=== PATIENT | female | born 1945 | race Caucasian/White ===

== ENCOUNTER 2019-01-04 22:11 | Inpatient (IN) | payer MEDICARE ==
[~2019-01-04] VITALS: Ht 160 cm; Wt 82.6 kg
[2019-01-04] MEDS ORDERED: methylPREDNISolone SOD SUCC PF 125 MG/2 ML VIAL. ONE (22:15)
[2019-01-04] MEDS ORDERED: methylPREDNISolone SOD SUCC PF 125 MG/2 ML VIAL. IV ONE (22:15)
[2019-01-04 22:32] LABS: BASO # 0.1 x10^3/uL (0.0-0.2); BASO % 1 % (0-3); EOS # 0.1 x10^3/uL (0.0-0.7); EOS % 2 % (0-3); HEMATOCRIT 45.8 % (36.0-47.0); HEMOGLOBIN 15.5 g/dL (12.0-15.5); LYMPH # 1.9 x10^3/uL (1.0-4.8); LYMPH % 32 % (24-48); MEAN CORPUSCULAR HEMOGLOBIN 31 pg (25-35); MEAN CORPUSCULAR HGB CONC 34 g/dL (31-37); MEAN CORPUSCULAR VOLUME 91 fL (79-100); MONO # 0.5 x10^3/uL (0.0-1.1); MONO % 9 % (0-9); NEUT # 3.4 x10^3/uL (1.8-7.7); NEUT % 56 % (31-73); PLATELET COUNT 219 x10^3/uL (140-400); RED BLOOD COUNT 5.06 x10^6/uL (3.50-5.40); RED CELL DISTRIBUTION WIDTH 16.3 % (11.5-14.5); WHITE BLOOD COUNT 5.9 x10^3/uL (4.0-11.0)
[2019-01-04 23:02] LABS: CALCIUM 8.8 mg/dL (8.5-10.1); CREATININE 1.1 mg/dL (0.6-1.0); POTASSIUM 4.3 mmol/L (3.5-5.1)
[2019-01-04 23:09] LABS: ALBUMIN 3.6 g/dL (3.4-5.0); ALBUMIN/GLOBULIN RATIO 1.2 (1.0-1.7); TOTAL BILIRUBIN 0.9 mg/dL (0.2-1.0); TOTAL PROTEIN 6.6 g/dL (6.4-8.2)
[2019-01-04 23:11] LABS: BASE EXCESS ABG -3 mmol/L (-3-3); HCO3 ABG 20 mmol/L (21-28); PCO2 ABG 31 mmHg (35-46); SAT O2 ABG 84 % (92-99)
[2019-01-04 23:12] LABS: PO2 ABG 49 mmHg (65-108)
--- NOTE | 2019-01-04 23:25 | PHYS DOC ---
Adult General Chief Complaint Chief Complaint: DYSPNEA/RESPIRATOY DISTRESS HPI HPI 73-year-old female history of pulmonary hypertension, chronic respiratory failure, chronic hypoxemia presents to the emergency department with acute shortness of breath. [facility] 11 day hospital stay. Patient falls with pulmonary at [facility]. She is on 15 L chronically at home. She states she has been tapering off of steroids since her last hospitalization and subsequently when this happens she gets worsening shortness of breath. States over the last 3 days she's had increasing shortness of breath. EMS was called tonight for worsening shortness of breath, saturations in the 70s with tachypnea and tripoding. Patient functions well with saturations in the 80s. EMS was called she was brought to the hospital for further evaluation given acute respiratory failure Review of Systems Review of Systems Constitutional: Denies fever or chills [] Respiratory: Cough/SOB Cardiovascular: No additional information not addressed in HPI [] GI: Denies abdominal pain, nausea, vomiting, bloody stools or diarrhea [] Musculoskeletal: Denies back pain or joint pain [] Integument: Denies rash or skin lesions [] Neurologic: Denies headache, focal weakness or sensory changes [] All other systems were reviewed and found to be within normal limits, except as documented in this note. Current Medications Current Medications Current Medications Medications (Trade) Dose Ordered Sig/Yessy Start Time Stop Time Status Last Admin Dose Admin Methylprednisolone Sodium Succinate (SOLU-Medrol 125MG VIAL) 125 mg 1X ONCE 01/04/19 22:15 01/04/19 22:30 DC Allergies Allergies Allergies Coded Allergies Type Severity Reaction Last Updated Verified Penicillins Allergy Unknown 01/04/19 Yes Sulfa (Sulfonamide Antibiotics) Allergy Unknown 01/04/19 Yes Physical Exam Physical Exam Constitutional: Acute Resp Distress, BIPAP in place HENT: Normocephalic, atraumatic, bilateral external ears normal, oropharynx moist, no oral exudates, nose normal. [] Eyes: PERRLA, EOMI, conjunctiva normal, no discharge. [] Cardiovascular: tachycardia Lungs & Thorax: Bilateral breath sounds clear to auscultation [] Abdomen: Bowel sounds normal, soft, no tenderness, no masses, no pulsatile masses. [] Skin: Warm, dry, no erythema, no rash. [] Back: No tenderness, no CVA tenderness. [] Extremities: No tenderness, no cyanosis, no clubbing, ROM intact, no edema. [] Neurologic: Alert and oriented X 3, no focal deficits noted. [] Psychologic: Affect normal, judgement normal, mood normal. [] Current Patient Data Vital Signs Vital Signs Date Time Temp Pulse Resp B/P (MAP) Pulse Ox O2 Delivery O2 Flow Rate FiO2 01/04/19 22:30 91 BiPAP/CPAP Lab Values Laboratory Tests Test 01/04/19 22:24 01/04/19 22:46 White Blood Count 5.9 x10^3/uL (4.0-11.0) Red Blood Count 5.06 x10^6/uL (3.50-5.40) Hemoglobin 15.5 g/dL (12.0-15.5) Hematocrit 45.8 % (36.0-47.0) Mean Corpuscular Volume 91 fL (79-100) Mean Corpuscular Hemoglobin 31 pg (25-35) Mean Corpuscular Hemoglobin Concent 34 g/dL (31-37) Red Cell Distribution Width 16.3 % (11.5-14.5) H Platelet Count 219 x10^3/uL (140-400) Neutrophils (%) (Auto) 56 % (31-73) Lymphocytes (%) (Auto) 32 % (24-48) Monocytes (%) (Auto) 9 % (0-9) Eosinophils (%) (Auto) 2 % (0-3) Basophils (%) (Auto) 1 % (0-3) Neutrophils # (Auto) 3.4 x10^3/uL (1.8-7.7) Lymphocytes # (Auto) 1.9 x10^3/uL (1.0-4.8) Monocytes # (Auto) 0.5 x10^3/uL (0.0-1.1) Eosinophils # (Auto) 0.1 x10^3/uL (0.0-0.7) Basophils # (Auto) 0.1 x10^3/uL (0.0-0.2) Sodium Level 142 mmol/L (136-145) Potassium Level 4.3 mmol/L (3.5-5.1) Chloride Level 108 mmol/L (98-107) H Carbon Dioxide Level 21 mmol/L (21-32) Anion Gap 13 (6-14) Blood Urea Nitrogen 20 mg/dL (7-20) Creatinine 1.1 mg/dL (0.6-1.0) H Estimated GFR (Cockcroft-Gault) 49.0 BUN/Creatinine Ratio 18 (6-20) Glucose Level 135 mg/dL (70-99) H Calcium Level 8.8 mg/dL (8.5-10.1) Total Bilirubin Pending Aspartate Amino Transferase (AST) Pending Alanine Aminotransferase (ALT) Pending Alkaline Phosphatase Pending Total Protein Pending Albumin Pending Albumin/Globulin Ratio Pending Laboratory Tests 01/04/19 22:24 Laboratory Tests 01/04/19 22:46 EKG EKG [] Radiology/Procedures Radiology/Procedures Wet read without acute consolidation or fluid on exam.[] Course & Med Decision Making Course & Med Decision Making Pertinent Labs and Imaging studies reviewed. (See chart for details) []73-year-old female history of pulmonary hypertension, chronic respiratory failure, chronic hypoxemia presents to the emergency department with acute danna rtness of breath. Patient [facility] 11 day hospital stay. Patient falls with pulmonary at . She is on 15 L chronically at home. She states she has been tapering off of steroids since her last hospitalization and subsequently when this happens she gets worsening shortness of breath. States over the last 3 days she's had increasing shortness of breath. EMS was called tonight for worsening shortness of breath, saturations in the 70s with tachypnea and tripoding. Patient functions well with saturations in the 80s. EMS was called she was brought to the hospital for further evaluation given acute respiratory failure Labs/Imaging reviewed. ABG reviewed - 7.. Solumedrol 125mg IV x 1, continuous treatment provided x 1 hour. Overall, patient saturations have improved - she appears more comfortable on BIPAP at this time. Discussed transfer to [facility] however patient states she feels comfortable staying here given that she has improved. Records have been requested from [facility]. Will plan admit to ICU and pulmonary consultation. Dragon Disclaimer Dragon Disclaimer This electronic medical record was generated, in whole or in part, using a voice recognition dictation system. Critical Care Time Critical care time was 35 minutes exclusive of procedures. Departure Departure Impression: Primary Impression: Acute respiratory failure Additional Impressions: Chronic respiratory failure Hypoxemia Pulmonary hypertension Disposition: ADMITTED INPATIENT Admitting Physician: MARLYN Condition: GUARDED Referrals: CASSANDRA SOTOMAYOR (PCP) Problem Qualifiers Primary Impression: Acute respiratory failure Respiratory failure complication: hypoxia Qualified Codes: J96.01 - Acute respiratory failure with hypoxia Additional Impressions: Chronic respiratory failure Respiratory failure complication: hypoxia Qualified Codes: J96.11 - Chronic respiratory failure with hypoxia TAYLOR GRIMM MD Jan 04, 2019 23:25
[2019-01-04] MEDS ORDERED: ONDANSETRON PF 4 MG/2 ML VIAL. IV PRN (23:30)
[2019-01-05] VITALS (26 sets, daily range): BP systolic 95–141; BP diastolic 46–77
[2019-01-05] MEDS ORDERED: FUROSEMIDE 40 MG/4 ML VIAL. IVP ONE
--- NOTE | 2019-01-05 00:30 | NUR ---
Patient admitted to room 111 at 0020. Patient made comfortable in bed and monitor was placed. RT at bedside placed pt on bipap. Pt oriented to room, call light, and hospital policies. Pure wick placed for accurate urine output. Pt to be NPO at this time. Family invited to be at bedside and assisted this RN with admit questions. Contact and code given to family. Pt has no complaints at this time.
[2019-01-05] MEDS ORDERED: CITA20TA6 PO (02:32)
[2019-01-05] MEDS ORDERED: POTA20TA82 PO (02:32)
[2019-01-05] MEDS ORDERED: AMBR10TA PO (02:32)
[2019-01-05] MEDS ORDERED: CLOP75TA PO (02:32)
[2019-01-05] MEDS ORDERED: OXYB5TAB10 PO (02:32)
[2019-01-05] MEDS ORDERED: FLUT100D IH (02:32)
[2019-01-05] MEDS ORDERED: FURO40TA4 PO (02:32)
[2019-01-05] MEDS ORDERED: AZEL137S3 NS (02:32)
[2019-01-05] MEDS ORDERED: PANT40TA6 PO (02:32)
[2019-01-05] MEDS ORDERED: METO-239 PO (02:32)
[2019-01-05] MEDS ORDERED: METF500T11 PO (02:32)
[2019-01-05] MEDS ORDERED: PRED-220 PO (02:32)
[2019-01-05] MEDS ORDERED: IPRA3AMP29 NEB (02:32)
[2019-01-05] MEDS ORDERED: GABA600T7 PO (02:32)
[2019-01-05] MEDS ORDERED: LACT70CA PO (02:32)
[2019-01-05] MEDS ORDERED: ATOR10TA60 PO (02:32)
[2019-01-05] MEDS ORDERED: VENTOLIN HFA18 GM INH (02:32)
[2019-01-05] MEDS ORDERED: MONT5TAB9 PO (02:32)
[2019-01-05] MEDS ORDERED: SILD20TA2 PO (02:32)
[2019-01-05] MEDS ORDERED: ALLO100T PO (02:32)
[2019-01-05] MEDS ORDERED: SODI1PAC NS (02:32)
[2019-01-05] MEDS ORDERED: GABA300C18 PO (02:32)
[2019-01-05] MEDS ORDERED: COLC0.6T34 PO (02:32)
[2019-01-05] MEDS ORDERED: ASPI-630 PO (02:32)
[2019-01-05 02:56] LABS: BASE EXCESS ABG -4 mmol/L (-3-3); HCO3 ABG 19 mmol/L (21-28); PCO2 ABG 30 mmHg (35-46); PO2 ABG 62 mmHg (65-108); SAT O2 ABG 91 % (92-99)
[2019-01-05 02:57] LABS: FIO2 ABG 65
--- NOTE | 2019-01-05 05:00 | RAD ---
EXAM: CHEST ONE VIEW. HISTORY: Shortness of breath. COMPARISON: None. FINDINGS: A frontal view of the chest is obtained. Linear opacities in the left base may indicate atelectasis or scarring. The central pulmonary arteries are prominent. Emphysematous changes are suspected in the apices. There is no pneumothorax or pleural effusion. The heart is not enlarged. There are atherosclerotic calcifications of the aorta. Bilateral breast implants are noted. IMPRESSION: 1. Left basilar atelectasis or scarring. Chronic obstructive pulmonary disease. Correlate for pulmonary arterial hypertension. Electronically signed by: Mercedez Page MD (01/05/2019 4:57 AM) [facility]
[2019-01-05] MEDS: methylPREDNISolone SOD SUCC PF 40 MG/ML VIAL. IV SCH ×3 (05:40→21:12)
[2019-01-05 05:57] LABS: BASO % 1 % (0-3); EOS % 0 % (0-3); HEMATOCRIT 40.9 % (36.0-47.0); HEMOGLOBIN 13.8 g/dL (12.0-15.5); LYMPH # 0.5 x10^3/uL (1.0-4.8); LYMPH % 17 % (24-48); MEAN CORPUSCULAR HEMOGLOBIN 31 pg (25-35); MEAN CORPUSCULAR HGB CONC 34 g/dL (31-37); MEAN CORPUSCULAR VOLUME 91 fL (79-100); MONO # 0.1 x10^3/uL (0.0-1.1); MONO % 2 % (0-9); NEUT # 2.5 x10^3/uL (1.8-7.7); NEUT % 80 % (31-73); PLATELET COUNT 187 x10^3/uL (140-400); RED BLOOD COUNT 4.51 x10^6/uL (3.50-5.40); RED CELL DISTRIBUTION WIDTH 15.6 % (11.5-14.5); WHITE BLOOD COUNT 3.1 x10^3/uL (4.0-11.0)
[2019-01-05 06:15] LABS: ALBUMIN 3.3 g/dL (3.4-5.0); ALBUMIN/GLOBULIN RATIO 1.1 (1.0-1.7); CALCIUM 8.6 mg/dL (8.5-10.1); GFR 54.7; POTASSIUM 3.9 mmol/L (3.5-5.1); TOTAL BILIRUBIN 0.7 mg/dL (0.2-1.0); TOTAL PROTEIN 6.3 g/dL (6.4-8.2)
[2019-01-05 07:17] LABS: BASE EXCESS ABG -1 mmol/L (-3-3); HCO3 ABG 22 mmol/L (21-28); PCO2 ABG 34 mmHg (35-46); PO2 ABG 64 mmHg (65-108); SAT O2 ABG 91 % (92-99)
[2019-01-05 07:20] LABS: FIO2 ABG 65
[2019-01-05] MEDS ORDERED: IPRATRPIUM/ALBUTEROL 0.5/2.5MG 3 ML NEBU. NEB SCH (08:00)
[2019-01-05] MEDS ORDERED: GABAPENTIN 300 MG CAPSULE. PO PRN (09:11)
[2019-01-05] MEDS ORDERED: SODIUM CHLORIDE NS PRN (09:15)
[2019-01-05] MEDS ORDERED: SODIUM BICARB NS PRN (09:15)
[2019-01-05] MEDS ORDERED: ALBUTEROL SULFATE 2.5 MG/3 ML NEBU. NEB PRN (09:15)
[2019-01-05] MEDS ORDERED: [UNRECOGNIZED DRUG - OTHER] NS PRN (09:15)
[2019-01-05] MEDS: IPRATRPIUM/ALBUTEROL 0.5/2.5MG 3 ML NEBU. NEB SCH ×5 (09:30→22:00)
--- NOTE | 2019-01-05 09:31 | PDOC1 ---
History and Physical Date of Admission Date of Admission DATE: 01/05/19 TIME: 09:20 Source Source: Chart review, Patient History of Present Illness History of Present Illness MS Ledesma, is a 73-year-old female admitted with acute shortness of breath from ER to ICU. SHe has a history of pulmonary hypertension, chronic respiratory failure, chronic hypoxemia. she has 3 days of worsnging shortness of breath, dyspnea, struggling for breath at home with worsening hypxia. She is on 15 liters at baseline. EMS found her in distress, in tripod position, Sa02 in high 70s She was discharged from [facility] approximately 3 weeks ago after 11 day hospital stay. Patient falls with pulmonary at [facility]. She is on 15 L chronically at home. She states she has been tapering off of steroids since her last hospitalization and subsequently when this happens she gets worsening shortness of breath. she feels better this AM after IV solumedrol and Bipap Past Medical History Cardiovascular: No pertinent hx Pulmonary: No pertinent hx Heme/Onc: No pertinent hx Hepatobiliary: No pertinent hx Dermatology: No pertinent hx Past Surgical History Past Surgical History: No pertinent history Family History Family History: No Significant Social History Smoke: Quit ALCOHOL: none Drugs: None Current Problem List Problem List Problems Medical Problems: (1) Acute respiratory failure Status: Acute (2) Chronic respiratory failure Status: Chronic (3) Hypoxemia Status: Chronic (4) Pulmonary hypertension Status: Acute Current Medications Current Medications Current Medications Methylprednisolone Sodium Succinate (SOLU-Medrol 125MG VIAL) 125 mg STK-MED ONCE .ROUTE ; Start 01/04/19 at 22:15; Stop 01/04/19 at 22:15; Status DC Methylprednisolone Sodium Succinate (SOLU-Medrol 125MG VIAL) 125 mg 1X ONCE IV Last administered on 01/04/19at 22:20; Start 01/04/19 at 22:15; Stop 01/04/19 at 22:30; Status DC Ondansetron HCl (Zofran) 4 mg PRN Q8HRS PRN IV NAUSEA/VOMITING; Start 01/04/19 at 23:30; Stop 01/05/19 at 23:29 Albuterol/ Ipratropium (Duoneb) 3 ml RTQID NEB Last administered on 01/05/19at 06:59; Start 01/05/19 at 08:00; Stop 01/06/19 at 07:59 Methylprednisolone Sodium Succinate (SOLU-Medrol 40MG VIAL) 40 mg Q8HRS IV Last administered on 01/05/19at 05:40; Start 01/05/19 at 06:00 Furosemide (Lasix) 40 mg 1X ONCE IVP Last administered on 01/05/19at 00:06; Start 01/05/19 at 00:00; Stop 01/05/19 at 00:01; Status DC Active Scripts Active Reported Prednisone (Prednisone) 10 Mg Tablet 10 Mg PO DAILY Sildenafil (Sildenafil Citrate) 20 Mg Tablet 20 Mg PO TID Pantoprazole Sodium 40 Mg Tablet.dr 40 Mg PO DAILY Oxybutynin Chloride 5 Mg Tablet 5 Mg PO TID [employer] Sinus Rinse Kit Refill (Sodium Chloride/Sodium Bicarb) 1 Each Packet 1 E ach NS PRN Q4-6HRS PRN Montelukast Sodium Chew.tablet (Montelukast Sodium) 5 Mg Tab.chew 10 Mg PO HS Metoprolol Succinate ( Xl ) (Metoprolol Succinate) 25 Mg Tab.er.24h 1 Tab PO DAILY Probiotic-10 3 Billion [employer] Cp (Lactobac No.41/Bifidobact No.7) 70 Mg Capsule 70 Mg PO DAILY Duoneb 0.5-3(2.5) Mg/3 Ml (Albuterol/Ipratropium) 3 Ml Ampul.neb 3 Ml NEB PRN QID PRN Furosemide 40 Mg Tablet 1 Tab PO DAILY Flovent 100MCG Diskus (Fluticasone Propionate) 100 Mcg Disk.w.dev 50 Mcg IH DAILY Colcrys (Colchicine) 0.6 Mg Tablet 1 Tab PO PRN Clopidogrel (Clopidogrel Bisulfate) 75 Mg Tablet 1 Tab PO DAILY Citalopram Hbr (Citalopram Hydrobromide) 20 Mg Tablet 1 Tab PO DAILY Azelastine Hcl 137 Mcg/0.137 Ml [place].pump 2 [place] NS BID Atorvastatin Calcium 10 Mg Tablet 1 Tab PO HS Aspirin 81 Mg Tab.chew 1 Tab PO DAILY Letairis (Ambrisentan) 10 Mg Tablet 10 Mg PO DAILY Ventolin Hfa Inhaler (Albuterol Sulfate) 18 Gm Hfa.aer.ad 2 Puff INH QID Allopurinol 100 Mg Tablet 1 Tab PO DAILY Potassium Chloride 20 Meq Tablet.er 20 Meq PO DAILY Metformin Hcl Er (Metformin Hcl) 500 Mg Tab.er.24h 500 Mg PO DAILYWBKFT Gabapentin 300 Mg Capsule 600 Mg PO HS Gabapentin 600 Mg Tablet 300 Mg PO DAILY PRN Allergies Allergies: Coded Allergies: Penicillins (Verified Allergy, Unknown, 01/04/19) Sulfa (Sulfonamide Antibiotics) (Verified Allergy, Unknown, 01/04/19) adhesive tape (Verified Allergy, Unknown, Rash, 01/05/19) ROS General: YES: Chills, Fatigue; No: Night Sweats, Malaise, Appetite, Other PSYCHOLOGICAL ROS: YES: Sleep disturbances; No: Anxiety, Behavioral Disorder, Concentration difficultie, Decreased libido, Depression, Disorientation, Hallucinations, Hostility, Irritablity, Memory difficulties, Mood Swings, Obsessive thoughts, Physical abuse, Sexual abu se, Suicidal ideation, Other Eyes: No Blurry vision, No Decreased vision, No Double vision, No Dry eyes, No Excessive tearing, No Eye Pain, No Itchy Eyes, No Loss of vision, No Photophobia, No Scotomata, No Uses contacts, No Uses glasses, No Other HEENT: No: Heacaches, Visual Changes, Hearing change, Nasal congestion, Nasal discharge, Oral lesions, Sinus pain, Sore Throat, Epistaxis, Sneezing, Snoring, Tinnitus, Vertigo, Vocal changes, Other Hematological and Lymphatic: No: Bleeding Problems, Blood Clots, Blood Transfusions, Brusing, Night Sweats, Pallor, Swollen Lymph Nodes, Other Respiratory: YES: Cough, SOB with excertion, Tachypnea, Wheezing Cardiovascular: yes Chest Pain; No Palpitations, No Orthopnea, No Paroxysmal Noc. Dyspnea, No Edema, No Lt Headedness, No Other Gastrointestinal: No Nausea, No Vomiting, No Abdominal Pain, No Diarrhea, No Constipation, No Melena, No Hematochezia, No Other Genitourinary: No Dysuria, No Frequency, No Incontinence, No Hematuria, No Retention, No Discharge, No Urgency, No Pain, No Flank Pain, No Other, No , No , No , No , No , No , No Musculoskeletal: No Gait Disturbance, No Joint Pain, No Joint Stiffness, No Joint Swelling, No Muscle Pain, No Muscular Weakness, No Pain In:, No Swelling In:, No Other Neurological: Yes Gait Disturbance, Yes Weakness; No Behavorial Changes, No Bowel/Bladder ControlChng, No Confusion, No Dizziness, No Headaches, No Impaired Coord/balance, No Memory Loss, No Numbness/Tingling, No Seizures, No Speech Problems, No Tremors, No Visual Changes, No Other Skin: No Dry Skin, No Eczema, No Hair Changes, No Lumps, No Mole Changes, No Mottling, No Nail Changes, No Pruritus, No Rash, No Skin Lesion Changes, No Oth er, No Acne Physical Exam General: Alert, Oriented X3, Cooperative, mild distress, moderate distress HEENT: Atraumatic, PERRLA Lungs: Clear to auscultation, Other (limited movement) Heart: S1S2 Abdomen: Normal bowel sounds, Soft Extremities: No clubbing, No edema Skin: No rashes, No breakdown Neuro: Normal speech, Normal tone, Sensation intact Psych/Mental Status: Mental status NL, Mood NL, Other (very intelligent) Vitals Vitals Vital Signs Date Time Temp Pulse Resp B/P (MAP) Pulse Ox O2 Delivery O2 Flow Rate FiO2 01/05/19 08:00 88 18 108/68 (81) 97 BiPAP/CPAP 01/05/19 07:00 97.9 97.9 01/04/19 22:11 15.0 Labs Labs Laboratory Tests Test 01/04/19 21:00 01/04/19 22:24 01/04/19 22:46 01/05/19 02:13 O2 Saturation 84 % (92-99) 91 % (92-99) Arterial Blood pH 7.43 (7.35-7.45) 7.43 (7.35-7.45) Arterial Blood pCO2 at Patient Temp 31 mmHg (35-46) 30 mmHg (35-46) Arterial Blood pO2 at Patient Temp 49 mmHg (65-108) 62 mmHg (65-108) Arterial Blood HCO3 20 mmol/L (21-28) 19 mmol/L (21-28) Arterial Blood Base Excess -3 mmol/L (-3-3) -4 mmol/L (-3-3) White Blood Count 5.9 x10^3/uL (4.0-11.0) Red Blood Count 5.06 x10^6/uL (3.50-5.40) Hemoglobin 15.5 g/dL (12.0-15.5) Hematocrit 45.8 % (36.0-47.0) Mean Corpuscular Volume 91 fL (79-100) Mean Corpuscular Hemoglobin 31 pg (25-35) Mean Corpuscular Hemoglobin Concent 34 g/dL (31-37) Red Cell Distribution Width 16.3 % (11.5-14.5) Platelet Count 219 x10^3/uL (140-400) Neutrophils (%) (Auto) 56 % (31-73) Lymphocytes (%) (Auto) 32 % (24-48) Monocytes (%) (Auto) 9 % (0-9) Eosinophils (%) (Auto) 2 % (0-3) Basophils (%) (Auto) 1 % (0-3) Neutrophils # (Auto) 3.4 x10^3/uL (1.8-7.7) Lymphocytes # (Auto) 1.9 x10^3/uL (1.0-4.8) Monocytes # (Auto) 0.5 x10^3/uL (0.0-1.1) Eosinophils # (Auto) 0.1 x10^3/uL (0.0-0.7) Basophils # (Auto) 0.1 x10^3/uL (0.0-0.2) Sodium Level 142 mmol/L (136-145) Potassium Level 4.3 mmol/L (3.5-5.1) Chloride Level 108 mmol/L (98-107) Carbon Dioxide Level 21 mmol/L (21-32) Anion Gap 13 (6-14) Blood Urea Nitrogen 20 mg/dL (7-20) Creatinine 1.1 mg/dL (0.6-1.0) Estimated GFR (Cockcroft-Gault) 49.0 BUN/Creatinine Ratio 18 (6-20) Glucose Level 135 mg/dL (70-99) Calcium Level 8.8 mg/dL (8.5-10.1) Total Bilirubin 0.9 mg/dL (0.2-1.0) Aspartate Amino Transf (AST/SGOT) 26 U/L (15-37) Alanine Aminotransferase (ALT/SGPT) 21 U/L (14-59) Alkaline Phosphatase 96 U/L (46-116) SC-Msm-X-Type Natriuretic Peptide 45316 pg/mL (0-124) Total Protein 6.6 g/dL (6.4-8.2) Albumin 3.6 g/dL (3.4-5.0) Albumin/Globulin Ratio 1.2 (1.0-1.7) FiO2 65 Test 01/05/19 05:34 01/05/19 07:15 White Blood Count 3.1 x10^3/uL (4.0-11.0) Red Blood Count 4.51 x10^6/uL (3.50-5.40) Hemoglobin 13.8 g/dL (12.0-15.5) Hematocrit 40.9 % (36.0-47.0) Mean Corpuscular Volume 91 fL (79-100) Mean Corpuscular Hemoglobin 31 pg (25-35) Mean Corpuscular Hemoglobin Concent 34 g/dL (31-37) Red Cell Distribution Width 15.6 % (11.5-14.5) Platelet Count 187 x10^3/uL (140-400) Neutrophils (%) (Auto) 80 % (31-73) Lymphocytes (%) (Auto) 17 % (24-48) Monocytes (%) (Auto) 2 % (0-9) Eosinophils (%) (Auto) 0 % (0-3) Basophils (%) (Auto) 1 % (0-3) Neutrophils # (Auto) 2.5 x10^3/uL (1.8-7.7) Lymphocytes # (Auto) 0.5 x10^3/uL (1.0-4.8) Monocytes # (Auto) 0.1 x10^3/uL (0.0-1.1) Eosinophils # (Auto) 0.0 x10^3/uL (0.0-0.7) Basophils # (Auto) 0.0 x10^3/uL (0.0-0.2) Sodium Level 145 mmol/L (136-145) Potassium Level 3.9 mmol/L (3.5-5.1) Chloride Level 108 mmol/L (98-107) Carbon Dioxide Level 23 mmol/L (21-32) Anion Gap 14 (6-14) Blood Urea Nitrogen 17 mg/dL (7-20) Creatinine 1.0 mg/dL (0.6-1.0) Estimated GFR (Cockcroft-Gault) 54.7 BUN/Creatinine Ratio 17 (6-20) Glucose Level 175 mg/dL (70-99) Calcium Level 8.6 mg/dL (8.5-10.1) Total Bilirubin 0.7 mg/dL (0.2-1.0) Aspartate Amino Transf (AST/SGOT) 17 U/L (15-37) Alanine Aminotransferase (ALT/SGPT) 25 U/L (14-59) Alkaline Phosphatase 92 U/L (46-116) Total Protein 6.3 g/dL (6.4-8.2) Albumin 3.3 g/dL (3.4-5.0) Albumin/Globulin Ratio 1.1 (1.0-1.7) O2 Saturation 91 % (92-99) Arterial Blood pH 7.44 (7.35-7.45) Arterial Blood pCO2 at Patient Temp 34 mmHg (35-46) Arterial Blood pO2 at Patient Temp 64 mmHg (65-108) Arterial Blood HCO3 22 mmol/L (21-28) Arterial Blood Base Excess -1 mmol/L (-3-3) FiO2 65 Laboratory Tests Test 01/04/19 21:00 01/04/19 22:24 01/04/19 22:46 01/05/19 02:13 O2 Saturation 84 % (92-99) 91 % (92-99) Arterial Blood pH 7.43 (7.35-7.45) 7.43 (7.35-7.45) Arterial Blood pCO2 at Patient Temp 31 mmHg (35-46) 30 mmHg (35-46) Arterial Blood pO2 at Patient Temp 49 mmHg (65-108) 62 mmHg (65-108) Arterial Blood HCO3 20 mmol/L (21-28) 19 mmol/L (21-28) Arterial Blood Base Excess -3 mmol/L (-3-3) -4 mmol/L (-3-3) White Blood Count 5.9 x10^3/uL (4.0-11.0) Red Blood Count 5.06 x10^6/uL (3.50-5.40) Hemoglobin 15.5 g/dL (12.0-15.5) Hematocrit 45.8 % (36.0-47.0) Mean Corpuscular Volume 91 fL (79-100) Mean Corpuscular Hemoglobin 31 pg (25-35) Mean Corpuscular Hemoglobin Concent 34 g/dL (31-37) Red Cell Distribution Width 16.3 % (11.5-14.5) Platelet Count 219 x10^3/uL (140-400) Neutrophils (%) (Auto) 56 % (31-73) Lymphocytes (%) (Auto) 32 % (24-48) Monocytes (%) (Auto) 9 % (0-9) Eosinophils (%) (Auto) 2 % (0-3) Basophils (%) (Auto) 1 % (0-3) Neutrophils # (Auto) 3.4 x10^3/uL (1.8-7.7) Lymphocytes # (Auto) 1.9 x10^3/uL (1.0-4.8) Monocytes # (Auto) 0.5 x10^3/uL (0.0-1.1) Eosinophils # (Auto) 0.1 x10^3/uL (0.0-0.7) Basophils # (Auto) 0.1 x10^3/uL (0.0-0.2) Sodium Level 142 mmol/L (136-145) Potassium Level 4.3 mmol/L (3.5-5.1) Chloride Level 108 mmol/L (98-107) Carbon Dioxide Level 21 mmol/L (21-32) Anion Gap 13 (6-14) Blood Urea Nitrogen 20 mg/dL (7-20) Creatinine 1.1 mg/dL (0.6-1.0) Estimated GFR (Cockcroft-Gault) 49.0 BUN/Creatinine Ratio 18 (6-20) Glucose Level 135 mg/dL (70-99) Calcium Level 8.8 mg/dL (8.5-10.1) Total Bilirubin 0.9 mg/dL (0.2-1.0) Aspartate Amino Transf (AST/SGOT) 26 U/L (15-37) Alanine Aminotransferase (ALT/SGPT) 21 U/L (14-59) Alkaline Phosphatase 96 U/L (46-116) JG-Mhn-V-Type Natriuretic Peptide 97791 pg/mL (0-124) Total Protein 6.6 g/dL (6.4-8.2) Albumin 3.6 g/dL (3.4-5.0) Albumin/Globulin Ratio 1.2 (1.0-1.7) FiO2 65 Test 01/05/19 05:34 01/05/19 07:15 White Blood Count 3.1 x10^3/uL (4.0-11.0) Red Blood Count 4.51 x10^6/uL (3.50-5.40) Hemoglobin 13.8 g/dL (12.0-15.5) Hematocrit 40.9 % (36.0-47.0) Mean Corpuscular Volume 91 fL (79-100) Mean Corpuscular Hemoglobin 31 pg (25-35) Mean Corpuscular Hemoglobin Concent 34 g/dL (31-37) Red Cell Distribution Width 15.6 % (11.5-14.5) Platelet Count 187 x10^3/uL (140-400) Neutrophils (%) (Auto) 80 % (31-73) Lymphocytes (%) (Auto) 17 % (24-48) Monocytes (%) (Auto) 2 % (0-9) Eosinophils (%) (Auto) 0 % (0-3) Basophils (%) (Auto) 1 % (0-3) Neutrophils # (Auto) 2.5 x10^3/uL (1.8-7.7) Lymphocytes # (Auto) 0.5 x10^3/uL (1.0-4.8) Monocytes # (Auto) 0.1 x10^3/uL (0.0-1.1) Eosinophils # (Auto) 0.0 x10^3/uL (0.0-0.7) Basophils # (Auto) 0.0 x10^3/uL (0.0-0.2) Sodium Level 145 mmol/L (136-145) Potassium Level 3.9 mmol/L (3.5-5.1) Chloride Level 108 mmol/L (98-107) Carbon Dioxide Level 23 mmol/L (21-32) Anion Gap 14 (6-14) Blood Urea Nitrogen 17 mg/dL (7-20) Creatinine 1.0 mg/dL (0.6-1.0) Estimated GFR (Cockcroft-Gault) 54.7 BUN/Creatinine Ratio 17 (6-20) Glucose Level 175 mg/dL (70-99) Calcium Level 8.6 mg/dL (8.5-10.1) Total Bilirubin 0.7 mg/dL (0.2-1.0) Aspartate Amino Transf (AST/SGOT) 17 U/L (15-37) Alanine Aminotransferase (ALT/SGPT) 25 U/L (14-59) Alkaline Phosphatase 92 U/L (46-116) Total Protein 6.3 g/dL (6.4-8.2) Albumin 3.3 g/dL (3.4-5.0) Albumin/Globulin Ratio 1.1 (1.0-1.7) O2 Saturation 91 % (92-99) Arterial Blood pH 7.44 (7.35-7.45) Arterial Blood pCO2 at Patient Temp 34 mmHg (35-46) Arterial Blood pO2 at Patient Temp 64 mmHg (65-108) Arterial Blood HCO3 22 mmol/L (21-28) Arterial Blood Base Excess -1 mmol/L (-3-3) FiO2 65 VTE Prophylaxis Ordered VTE Prophylaxis Devices: No VTE Pharmacological Prophylaxi: Yes Assessment/Plan Assessment/Plan acute on chronic hypoxic respiratory failure primary pulmonary hypertension COPD, w/ bronchitis cor pulmonale secondary SIRS, no organ dysfunction plan, Steroids, bipap, PULM and CV consult, I called Dr. Ian Naranjo at [facility], and spoke with his nurse about this admission, , and left my cell phone for the doctor MELLISSA BIGGS MD Jan 05, 2019 09:31
[2019-01-05] MEDS: ALLOPURINOL 100 MG TABLET. PO SCH (09:57)
[2019-01-05] MEDS: PANTOPRAZOLE 40 MG TABLET.DR. PO SCH (09:57)
[2019-01-05] MEDS: OXYBUTYNIN CHLORIDE 5 MG TABLET PO SCH ×3 (09:57→21:11)
[2019-01-05] MEDS: ENOXAPARIN 40 MG/0.4 ML SYRINGE. SQ SCH (09:57)
[2019-01-05] MEDS: CITALOPRAM 20 MG TABLET. PO SCH (09:58)
[2019-01-05] MEDS: SILDENAFIL CITRATE 20 MG TABLET. PO SCH ×3 (09:58→21:11)
[2019-01-05] MEDS: POTASSIUM CHLORIDE 20 MEQ TABLET.ER. PO SCH (09:58)
[2019-01-05] MEDS: CLOPIDOGREL BISULFATE 75 MG TABLET PO SCH (09:58)
[2019-01-05] MEDS: LACTOBACILLUS RHAMNOSUS GG 1 CAPSULE. PO SCH (09:59)
[2019-01-05] MEDS: FUROSEMIDE 40 MG TABLET. PO SCH (09:59)
[2019-01-05] MEDS: AZELASTINE NASAL SPRAY 30ML BOTTLE. NS SCH ×2 (09:59→12:55)
[2019-01-05] MEDS: ASPIRIN CHEWABLE 81 MG TABLET. PO SCH (09:59)
[2019-01-05] MEDS: METOPROLOL SUCC 24HR ER 25 MG TAB.ER.24H. PO SCH (10:00)
[2019-01-05] MEDS: BUDESONIDE 0.5 MG/2 ML NEBU. NEB SCH ×2 (11:03→19:46)
--- NOTE | 2019-01-05 12:37 | CONS ---
DATE OF CONSULTATION: PULMONARY CONSULTATION ATTENDING PHYSICIAN: Aleksandr Donahue MD REASON FOR CONSULTATION: Respiratory failure, severe hypoxia. HISTORY OF PRESENT ILLNESS: The patient is a 73-year-old female who has history of underlying COPD and chronic hypoxic respiratory failure. She has been on home at 15 liters of oxygen for the last 1 year. She has a diagnosis of primary pulmonary hypertension and sees her progressive assembler and fitter at [facility], Dr. Naranjo. The patient states she also had a right heart cath about 3 weeks ago and a transesophageal echocardiogram . She has ASD/PFO closure. She said it was repaired via the catheter. She came into the hospital with increasing shortness of breath for the last 3 days. She has no cough, no fever, no chills, no chest pains. No increased leg edema. I have reviewed the patient's chest x-ray, it shows prominent interstitial markings and pulmonary hypertension. Her arterial blood gases reveal a pH of 7.43, pCO2 of 31 and a pO2 of 49. Currently, her pO2 of 64 on BiPAP. PAST MEDICAL HISTORY: History of pulmonary hypertension, being followed at [facility] Pulmonary. She is on Letairis and Revatio. History of PFO/ ASD. Recently had a transesophageal echo and right heart catheterization and had a transcatheter repair. Details again not available. History of tobacco use, suspect underlying COPD. PAST SURGICAL HISTORY: As discussed above, otherwise none. ALLERGIES: PENICILLIN, SULFA AND ADHESIVE TAPE. MEDICATIONS: Reviewed as listed in the MRAD. REVIEW OF SYSTEMS: Twelve-point system obtained. Pertinent positives discussed in my history of present illness, otherwise noncontributory. All systems that were negative were reviewed as well. SOCIAL HISTORY: Smokes for about 30+ years before quitting. FAMILY HISTORY: Noncontributory to lungs. PHYSICAL EXAMINATION: VITAL SIGNS: Reviewed. Blood pressure 108/68, pulse ox is 97% on current BiPAP at 100% FiO2. HEENT: Sclerae nonicteric. NECK: Supple. LUNGS: With crackles at the bases. CARDIOVASCULAR: Regular rate. ABDOMEN: Soft. EXTREMITIES: With trace pitting edema. LABORATORY DATA: Reviewed. Her BUN is 17, creatinine 1.0. ProBNP is 18,000. White cell count 3.1, hemoglobin 13.8 and platelets are 187. IMPRESSION: 1. Acute on chronic hypoxic respiratory failure in a patient who has severe pulmonary hypertension and being followed at the Pulmonary Hypertension Clinic at [facility] by Dr. Naranjo. She has been on Revatio and Letairis. The patient is also on 15 liters of oxygen on a 24-hour basis. Some records from [facility] were reviewed. Etiology of her Pulmonary HTN appear to be from severe Right to left shunt. She has PFO closure in August 2018 She also has ASD closure as well. During recent right heart cath and CHARO , she was found to have small Rt to Lt shunt from right upper pulmonary vein. She has no PE, no ILD. she does have COPD and BOAZ. Now comes in with increasing dyspnea and worsening, hypoxia and likely related to acute right heart failure. No suspicion for any infectious etiology. Does not appear to have any exacerbation of chronic obstructive pulmonary disease. 2. Underlying chronic obstructive pulmonary disease. 3. Severe pulmonary hypertension. 4. atrial septal defect / PFO closure RECOMMENDATIONS: 1. Discussed with Dr. Yee and RN. We will continue with present BiPAP. 2. Mild diuresis as long as blood pressure can tolerate. 3. Continue Revatio and Letairis. 4. Lovenox for DVT prophylaxis. 5. Bronchodilators. 6. Supportive care. 7. Discussed Advanced Directives and she is a DNR, but prefers to have short-term CPR. I discussed with Dr. Yee. 8. Cardiology rec. May need Echo with bubble study to assess for worsening Right to left shunt Critical care time [address] [facility] reviewed. DIANE CLOUD MD DR: CASA/riccardo JOB#: [id number] / [id number] TESSIE
[2019-01-05] MEDS: metFORMIN XR 500 MG TAB.ER.24H PO SCH (12:38)
[2019-01-05] MEDS: AMBRISENTAN (LETAIRIS) 10 MG TABLET PO SCH (12:55)
[2019-01-05] MEDS ORDERED: FUROSEMIDE 20 MG/2 ML VIAL. IVP ONE (13:00)
--- NOTE | 2019-01-05 13:03 | PDOC2 ---
KORTNEY TORRES SUPERVISOR [employer] 01/05/19 1303: CARDIAC CONSULT DATE OF CONSULT Date of Consult DATE: 01/05/19 TIME: 12:54 REASON FOR CONSULT Reason for Consult: cor pulmonale, PHTN REFERRING PHYSICIAN Referring Physician: Joselito SOURCE Source: Chart review, Patient HISTORY OF PRESENT ILLNESS HISTORY OF PRESENT ILLNESS This is a pleasant 73 yo female admitted for complains of increasing SOA. She is known for CAD with remote stent placement and also notable for pulmonary HTN and recent ASD closure and RHC this yr. . Reports that despite her O2 and consistent CPAP use at home her SOA significantly increase. Denies any chest pain nor palpitations. She is still functional and able to drive and move around in the house with walker by baseline with continuous O2 supplementation. She sees [facility] cardiology. Her last stress test was 2 yrs ago from [facility]. No LHC since 2000. Her SOA started about 4 days ago despite her treatments. Also noted with indigestion. No chest pain or palpitations and no prior hx of a rrhythmias. She does have intermittent dizziness but mainly positional. No recent falls or injury. She is knowledgeable and compliant with her treatment plan. PAST MEDICAL HISTORY Cardiovascular: CAD, CHF, HTN, Hyperlipidemia, Pulmonary hypertension (primary), Other (ASD/PFO) Pulmonary: COPD, Other (BOAZ) CENTRAL NERVOUS SYSTEM: Periperal neuropathy GI: GERD Heme/Onc: Cancer (breast) Hepatobiliary: Cholelithiasis Psych: Depression Musculoskeletal: Osteoarthritis Rheumatologic: Gout ENT: Allergic Rhinitis Renal/: UTI, Urinary Incontinence Endocrine: Diabetes (2) PAST SURGICAL HISTORY Past Surgical History: Cholecystectomy, Mastectomy, Tubal Ligation, Tonsillectomy, Hysterectomy (bilateral), Other (recent CHARO/RHC; PTCA 1991 and PCI/stent in 2000; breast implants) FAMILY HISTORY Family History: Coronary Artery Disease (father, sister, son) SOCIAL HISTORY Smoke: Quit ALCOHOL: none Drugs: None Lives: with Family CURRENT MEDICATIONS CURRENT MEDICATIONS Current Medications Medications (Trade) Dose Ordered Sig/Yessy Route PRN Reason Start Time Stop Time Status Last Admin Dose Admin Methylprednisolone Sodium Succinate (SOLU-Medrol 125MG VIAL) 125 mg 1X ONCE IV 01/04/19 22:15 01/04/19 22:30 DC 01/04/19 22:20 Albuterol/ Ipratropium (Duoneb) 3 ml RTQID NEB 01/05/19 08:00 01/05/19 09:23 DC 01/05/19 06:59 Methylprednisolone Sodium Succinate (SOLU-Medrol 40MG VIAL) 40 mg Q8HRS IV 01/05/19 06:00 01/05/19 05:40 Furosemide (Lasix) 40 mg 1X ONCE IVP 01/05/19 00:00 01/05/19 00:01 DC 01/05/19 00:06 Allopurinol (Zyloprim) 100 mg DAILY PO 01/05/19 10:00 01/05/19 09:57 Aspirin (Children'S Aspirin) 81 mg DAILY PO 01/05/19 10:00 01/05/19 09:59 Azelastine HCl (Astelin) 2 spray BID NS 01/05/19 10:00 01/05/19 09:59 Citalopram Hydrobromide (CeleXA) 20 mg DAILY PO 01/05/19 10:00 01/05/19 09:58 Clopidogrel Bisulfate (Plavix) 75 mg DAILY PO 01/05/19 10:00 01/05/19 09:58 Furosemide (Lasix) 40 mg DAILY PO 01/05/19 10:00 01/05/19 09:59 Metformin HCl (Glucophage Xr) 500 mg DAILYWBKFT PO 01/05/19 11:30 01/05/19 12:38 Oxybutynin Chloride (Ditropan) 5 mg TID PO 01/05/19 10:00 01/05/19 09:57 Pantoprazole Sodium (Protonix) 40 mg DAILYAC PO 01/05/19 10:00 01/05/19 09:57 Sildenafil Citrate (Revatio) 20 mg TID PO 01/05/19 11:00 01/05/19 09:58 Budesonide (Pulmicort) 0.5 mg RTBID NEB 01/05/19 10:00 01/05/19 11:03 Lactobacillus Rhamnosus (Culturelle) 1 cap DAILY PO 01/05/19 10:00 01/05/19 09:59 Potassium Chloride (Klor-Con) 20 meq DAILYWBKFT PO 01/05/19 10:00 01/05/19 09:58 Enoxaparin Sodium (Lovenox 40mg Syringe) 40 mg Q24H SQ 01/05/19 10:00 01/05/19 09:57 Furosemide (Lasix) 20 mg 1X ONCE IVP 01/05/19 13:00 01/05/19 13:01 01/05/19 12:38 ALLERGIES ALLERGIES: Coded Allergies: Penicillins (Verified Allergy, Intermediate, 01/05/19) Sulfa (Sulfonamide Antibiotics) (Verified Allergy, Intermediate, 01/05/19) adhesive tape (Verified Allergy, Intermediate, Rash, 01/05/19) iodine (Verified Allergy, Intermediate, 01/05/19) hives ROS Review of System 14 point ROS evaluated with pertinent positives noted per HPI PHYSICAL EXAM General: Alert, Oriented X3, Cooperative, moderate distress HEENT: Atraumatic, Mucous membr. moist/pink Lungs: Other (diffuse crackles) Abdomen: Soft, No tenderness Extremities: No cyanosis, Other (trace to 1+) Skin: No breakdown, No significant lesion Neuro: Normal speech, Sensation intact Psych/Mental Status: Mental status NL, Mood NL MUSCULOSKELETAL: Osteoarthritic changes both hands VITALS/I&O VITALS/I&O: Vital Signs Date Time Temp Pulse Resp B/P (MAP) Pulse Ox O2 Delivery O2 Flow Rate FiO2 01/05/19 11:05 94 BiPAP/CPAP 01/05/19 11:00 90 18 99/70 (80) 01/05/19 10:00 15.0 01/05/19 07:00 97.9 97.9 I & O 01/04/19 01/04/19 01/05/19 15:00 23:00 07:00 Output Total 800 ml Balance -800 ml LABS Lab: Laboratory Tests Test 01/04/19 21:00 01/04/19 22:24 01/04/19 22:46 01/05/19 02:13 O2 Saturation 84 % (92-99) L 91 % (92-99) L Arterial Blood pH 7.43 (7.35-7.45) 7.43 (7.35-7.45) Arterial Blood pCO2 at Patient Temp 31 mmHg (35-46) L 30 mmHg (35-46) L Arterial Blood pO2 at Patient Temp 49 mmHg (65-108) *L 62 mmHg (65-108) L Arterial Blood HCO3 20 mmol/L (21-28) L 19 mmol/L (21-28) L Arterial Blood Base Excess -3 mmol/L (-3-3) -4 mmol/L (-3-3) L White Blood Count 5.9 x10^3/uL (4.0-11.0) Red Blood Count 5.06 x10^6/uL (3.50-5.40) Hemoglobin 15.5 g/dL (12.0-15.5) Hematocrit 45.8 % (36.0-47.0) Mean Corpuscular Volume 91 fL (79-100) Mean Corpuscular Hemoglobin 31 pg (25-35) Mean Corpuscular Hemoglobin Concent 34 g/dL (31-37) Red Cell Distribution Width 16.3 % (11.5-14.5) H Platelet Count 219 x10^3/uL (140-400) Neutrophils (%) (Auto) 56 % (31-73) Lymphocytes (%) (Auto) 32 % (24-48) Monocytes (%) (Auto) 9 % (0-9) Eosinophils (%) (Auto) 2 % (0-3) Basophils (%) (Auto) 1 % (0-3) Neutrophils # (Auto) 3.4 x10^3/uL (1.8-7.7) Lymphocytes # (Auto) 1.9 x10^3/uL (1.0-4.8) Monocytes # (Auto) 0.5 x10^3/uL (0.0-1.1) Eosinophils # (Auto) 0.1 x10^3/uL (0.0-0.7) Basophils # (Auto) 0.1 x10^3/uL (0.0-0.2) Sodium Level 142 mmol/L (136-145) Potassium Level 4.3 mmol/L (3.5-5.1) Chloride Level 108 mmol/L (98-107) H Carbon Dioxide Level 21 mmol/L (21-32) Anion Gap 13 (6-14) Blood Urea Nitrogen 20 mg/dL (7-20) Creatinine 1.1 mg/dL (0.6-1.0) H Estimated GFR (Cockcroft-Gault) 49.0 BUN/Creatinine Ratio 18 (6-20) Glucose Level 135 mg/dL (70-99) H Calcium Level 8.8 mg/dL (8.5-10.1) Total Bilirubin 0.9 mg/dL (0.2-1.0) Aspartate Amino Transferase (AST) 26 U/L (15-37) Alanine Aminotransferase (ALT) 21 U/L (14-59) Alkaline Phosphatase 96 U/L (46-116) DZ-Meg-H-Type Natriuretic Peptide 77167 pg/mL (0-124) H Total Protein 6.6 g/dL (6.4-8.2) Albumin 3.6 g/dL (3.4-5.0) Albumin/Globulin Ratio 1.2 (1.0-1.7) FiO2 65 Test 01/05/19 05:34 01/05/19 07:15 01/05/19 12:36 White Blood Count 3.1 x10^3/uL (4.0-11.0) L Red Blood Count 4.51 x10^6/uL (3.50-5.40) Hemoglobin 13.8 g/dL (12.0-15.5) Hematocrit 40.9 % (36.0-47.0) Mean Corpuscular Volume 91 fL (79-100) Mean Corpuscular Hemoglobin 31 pg (25-35) Mean Corpuscular Hemoglobin Concent 34 g/dL (31-37) Red Cell Distribution Width 15.6 % (11.5-14.5) H Platelet Count 187 x10^3/uL (140-400) Neutrophils (%) (Auto) 80 % (31-73) H Lymphocytes (%) (Auto) 17 % (24-48) L Monocytes (%) (Auto) 2 % (0-9) Eosinophils (%) (Auto) 0 % (0-3) Basophils (%) (Auto) 1 % (0-3) Neutrophils # (Auto) 2.5 x10^3/uL (1.8-7.7) Lymphocytes # (Auto) 0.5 x10^3/uL (1.0-4.8) L Monocytes # (Auto) 0.1 x10^3/uL (0.0-1.1) Eosinophils # (Auto) 0.0 x10^3/uL (0.0-0.7) Basophils # (Auto) 0.0 x10^3/uL (0.0-0.2) Sodium Level 145 mmol/L (136-145) Potassium Level 3.9 mmol/L (3.5-5.1) Chloride Level 108 mmol/L (98-107) H Carbon Dioxide Level 23 mmol/L (21-32) Anion Gap 14 (6-14) Blood Urea Nitrogen 17 mg/dL (7-20) Creatinine 1.0 mg/dL (0.6-1.0) Estimated GFR (Cockcroft-Gault) 54.7 BUN/Creatinine Ratio 17 (6-20) Glucose Level 175 mg/dL (70-99) H Calcium Level 8.6 mg/dL (8.5-10.1) Total Bilirubin 0.7 mg/dL (0.2-1.0) Aspartate Amino Transferase (AST) 17 U/L (15-37) Alanine Aminotransferase (ALT) 25 U/L (14-59) Alkaline Phosphatase 92 U/L (46-116) Total Protein 6.3 g/dL (6.4-8.2) L Albumin 3.3 g/dL (3.4-5.0) L Albumin/Globulin Ratio 1.1 (1.0-1.7) O2 Saturation 91 % (92-99) L Arterial Blood pH 7.44 (7.35-7.45) Arterial Blood pCO2 at Patient Temp 34 mmHg (35-46) L Arterial Blood pO2 at Patient Temp 64 mmHg (65-108) L Arterial Blood HCO3 22 mmol/L (21-28) Arterial Blood Base Excess -1 mmol/L (-3-3) FiO2 65 Glucose (Fingerstick) 223 mg/dL (70-99) H Laboratory Tests 01/04/19 22:24 01/05/19 05:34 Laboratory Tests 01/04/19 22:46 01/05/19 05:34 ECHOCARDIOGRAM ECHOCARDIOGRAM 12/11/2018 CHARO EF 65% LV systolic function normal. no sginficant valvular abnormalities. Small right to let shunt appears to arise from the right pulmonary vein Atrial septal closure device in situ Closure done in 08/09/2018 ASSESSMENT/PLAN ASSESSMENT/PLAN 1. Acute on chronic hypoxic respiratory failure with known pulmonary HTN, CHF, and COPD 2. Recent ASD percutaneous closure: at [facility]. records reviewed. 3. Acute on chronic diastolic CHF/cor pulmonale 4. HTN: controlled 5. HLP 6. DM2 7. CAD: PTCA 1991 and stent placement 2000. Last stress test 2 yrs ago. 8. Iodine allergy Recommendations 1. Continue DAPT, BB, EKG lasix therapy 2. Troponin, limited TTE and note EF. 3. Concerning for ischemia as well given her significant comorbid conditions given her acute onset of SOA despite treatment compliance. Await workup as noted above and will consider for ischemic workup 4. Continue with secondary prevention 5. Follow pulmonary recommendations ZOË GUTIERREZ MD 01/05/19 1554: CARDIAC CONSULT ASSESSMENT/PLAN ASSESSMENT/PLAN Patient seen and examined. Agree with above nurse practitioner note. Echocardiogram reviewed. Patient has significant RV dysfunction. Await cardiac enzymes and symptoms over the next 24 hours. May benefit from further invasive evaluation. KORTNEY TORRES APRN Jan 05, 2019 13:03 ZOË GUTIERREZ MD Jan 05, 2019 15:54
--- NOTE | 2019-01-05 13:36 | EKG ---
[facility] [address] [place] [address] Test Date: 2019-01-05 Test Time: 13:26:08 Pat Name: DUC MCELROY Department: Room: 111 1 Gender: F Electronic Warfare Specialist: : [id number] Requested By: KORTNEY TORRES Order Number: [id number] Reading MD: Measurements Intervals [place] Rate: 93 P: 45 TX: 146 QRS: 32 QRSD: 96 T: 41 QT: 386 QTc: 483 Interpretive Statements SINUS RHYTHM R-S TRANSITION ZONE IN V LEADS DISPLACED TO THE LEFT LOW LIMB LEAD VOLTAGE ST & T ABNORMALITY, CONSIDER ANTERIOR ISCHEMIA OR LEFT VENTRICULAR STRAIN ABNORMAL ECG RI6.01 Unconfirmed report No previous ECG available for comparison
[2019-01-05] MEDS ORDERED: DEXTROSE 50% 25 GM / 50ML DISP.SYRIN. IV PRN (14:00)
--- NOTE | 2019-01-05 14:10 | NUR ---
Order received from Dr. Yee to start low dose sliding scale insulin. Dr. Yee also re-started patient's home/pulm HTN medications. RN verified w/ patient prior to administering. Everything is correct according to patient. Medical records received from [facility]-- where patient is primarily seen for pulm HTN. Patient is resting at this time- on BiPap. Family is at bedside.
--- NOTE | 2019-01-05 15:47 | CARD ---
MR#: [id number] Date of Study: 01/05/2019 Ordering Physician: KORTNEY TORRES, Referring Physician: KORTNEY TORRES Tech: Lillian Killian RDCS APPROVED REPORT EXAM: Two-dimensional and M-mode echocardiogram with Doppler and color Doppler. 2D DIMENSIONS RVDd4.6 (2.9-3.5cm)IVSd1.3 (0.7-1.1cm) Aortic Root(2D)3.2 (2.0-3.7cm)LVDd4.4 (3.9-5.9cm) PWd1.2 (0.7-1.1cm)LVDs3.0 (2.5-4.0cm) LEFT VENTRICLE The left ventricle is normal size. There is mild to moderate concentric left ventricular hypertrophy. The left ventricular systolic function is normal and the ejection fraction is within normal range. T he Ejection Fraction is 50-55%. Grossly normal wall motion on limited images. Diastology not performe d. RIGHT VENTRICLE The right ventricle is severely dilated. The right ventricle is moderately hypertrophied. RV Systolic function is mildly to moderately reduced. ATRIA The left atrium size is normal. The right atrium is moderately dilated. The interatrial septum is int act with no evidence for an atrial septal defect or patent foramen ovale as noted on 2-D or Doppler i maging. AORTIC VALVE Aortic valve not visualized. Doppler and color-flow analysis was not performed. GREAT VESSELS The aortic root is normal in size. The IVC is dilated and collapses <50% with inspiration. PERICARDIAL EFFUSION There is no evidence of significant pericardial effusion. Critical Notification Critical Value: No <Conclusion> The left ventricular systolic function is normal and the ejection fraction is within normal range. Th e Ejection Fraction is 50-55%. Grossly normal wall motion on limited images. The right ventricle is severely dilated. The right ventricle is moderately hypertrophied. RV Systolic function is mildly to moderately reduced. Signed by : Matthew Cazares, Electronically Approved : 01/05/2019 15:47:07
--- NOTE | 2019-01-05 16:24 | NUR ---
SS following for discharge planning. SS reviewed pt chart. Pt is from home with spouse and is currently requiring oxygen. PT/OT evaluated and recommended home with assistance. SS will continue to follow for discharge planning.
[2019-01-05] MEDS: INSULIN LISPRO 300 UNITS/3 ML VIAL. SQ SCH (17:00)
[2019-01-05] MEDS: MONTELUKAST SODIUM 10 MG TABLET. PO SCH (21:10)
[2019-01-05] MEDS: ATORVASTATIN CALCIUM 10 MG TABLET. PO SCH (21:11)
[2019-01-05] MEDS: GABAPENTIN 300 MG CAPSULE. PO SCH (21:11)
[2019-01-06] VITALS (20 sets, daily range): BP systolic 87–122; BP diastolic 42–62
[2019-01-06] MEDS: methylPREDNISolone SOD SUCC PF 40 MG/ML VIAL. IV SCH ×3 (06:17→21:05)
[2019-01-06] MEDS: BUDESONIDE 0.5 MG/2 ML NEBU. NEB SCH ×2 (07:25→19:59)
[2019-01-06] MEDS: IPRATRPIUM/ALBUTEROL 0.5/2.5MG 3 ML NEBU. NEB SCH (07:25)
[2019-01-06 07:28] LABS: BASE EXCESS ABG -2 mmol/L (-3-3); HCO3 ABG 22 mmol/L (21-28); PCO2 ABG 35 mmHg (35-46); PO2 ABG 61 mmHg (65-108); SAT O2 ABG 91 % (92-99)
[2019-01-06 07:31] LABS: FIO2 ABG 65%
[2019-01-06] MEDS: metFORMIN XR 500 MG TAB.ER.24H PO SCH (08:28)
[2019-01-06] MEDS: CITALOPRAM 20 MG TABLET. PO SCH (08:28)
[2019-01-06] MEDS: PANTOPRAZOLE 40 MG TABLET.DR. PO SCH (08:29)
[2019-01-06] MEDS: POTASSIUM CHLORIDE 20 MEQ TABLET.ER. PO SCH (08:29)
[2019-01-06] MEDS: LACTOBACILLUS RHAMNOSUS GG 1 CAPSULE. PO SCH (08:29)
[2019-01-06] MEDS: OXYBUTYNIN CHLORIDE 5 MG TABLET PO SCH ×3 (08:29→20:58)
[2019-01-06] MEDS: FUROSEMIDE 40 MG TABLET. PO SCH (08:29)
[2019-01-06] MEDS: CLOPIDOGREL BISULFATE 75 MG TABLET PO SCH (08:29)
[2019-01-06] MEDS: ALLOPURINOL 100 MG TABLET. PO SCH (08:29)
[2019-01-06] MEDS: ASPIRIN CHEWABLE 81 MG TABLET. PO SCH (08:29)
[2019-01-06] MEDS: METOPROLOL SUCC 24HR ER 25 MG TAB.ER.24H. PO SCH (08:30)
[2019-01-06] MEDS: SILDENAFIL CITRATE 20 MG TABLET. PO SCH ×3 (08:31→21:20)
--- NOTE | 2019-01-06 08:31 | PDOC ---
PULMONARY PROGRESS NOTES Subjective down to 65%FIO2/ BIPAP Vitals Vital Signs Date Time Temp Pulse Resp B/P (MAP) Pulse Ox O2 Delivery O2 Flow Rate FiO2 01/06/19 07:17 93 BiPAP/CPAP 01/06/19 06:00 74 19 101/50 (67) 01/06/19 04:00 98.0 98.0 01/06/19 04:00 15.0 General: Alert, No acute distress Lungs: Crackles (bases) Cardiovascular: S1 Abdomen: Soft Neuro Exam: Alert Extremities: No Edema Skin: Warm Labs Laboratory Tests Test 01/04/19 21:00 01/04/19 22:24 01/04/19 22:46 01/05/19 02:13 O2 Saturation 84 % (92-99) 91 % (92-99) Arterial Blood pH 7.43 (7.35-7.45) 7.43 (7.35-7.45) Arterial Blood pCO2 at Patient Temp 31 mmHg (35-46) 30 mmHg (35-46) Arterial Blood pO2 at Patient Temp 49 mmHg (65-108) 62 mmHg (65-108) Arterial Blood HCO3 20 mmol/L (21-28) 19 mmol/L (21-28) Arterial Blood Base Excess -3 mmol/L (-3-3) -4 mmol/L (-3-3) White Blood Count 5.9 x10^3/uL (4.0-11.0) Red Blood Count 5.06 x10^6/uL (3.50-5.40) Hemoglobin 15.5 g/dL (12.0-15.5) Hematocrit 45.8 % (36.0-47.0) Mean Corpuscular Volume 91 fL (79-100) Mean Corpuscular Hemoglobin 31 pg (25-35) Mean Corpuscular Hemoglobin Concent 34 g/dL (31-37) Red Cell Distribution Width 16.3 % (11.5-14.5) Platelet Count 219 x10^3/uL (140-400) Neutrophils (%) (Auto) 56 % (31-73) Lymphocytes (%) (Auto) 32 % (24-48) Monocytes (%) (Auto) 9 % (0-9) Eosinophils (%) (Auto) 2 % (0-3) Basophils (%) (Auto) 1 % (0-3) Neutrophils # (Auto) 3.4 x10^3/uL (1.8-7.7) Lymphocytes # (Auto) 1.9 x10^3/uL (1.0-4.8) Monocytes # (Auto) 0.5 x10^3/uL (0.0-1.1) Eosinophils # (Auto) 0.1 x10^3/uL (0.0-0.7) Basophils # (Auto) 0.1 x10^3/uL (0.0-0.2) Sodium Level 142 mmol/L (136-145) Potassium Level 4.3 mmol/L (3.5-5.1) Chloride Level 108 mmol/L (98-107) Carbon Dioxide Level 21 mmol/L (21-32) Anion Gap 13 (6-14) Blood Urea Nitrogen 20 mg/dL (7-20) Creatinine 1.1 mg/dL (0.6-1.0) Estimated GFR (Cockcroft-Gault) 49.0 BUN/Creatinine Ratio 18 (6-20) Glucose Level 135 mg/dL (70-99) Calcium Level 8.8 mg/dL (8.5-10.1) Total Bilirubin 0.9 mg/dL (0.2-1.0) Aspartate Amino Transf (AST/SGOT) 26 U/L (15-37) Alanine Aminotransferase (ALT/SGPT) 21 U/L (14-59) Alkaline Phosphatase 96 U/L (46-116) CC-Pee-N-Type Natriuretic Peptide 32388 pg/mL (0-124) Total Protein 6.6 g/dL (6.4-8.2) Albumin 3.6 g/dL (3.4-5.0) Albumin/Globulin Ratio 1.2 (1.0-1.7) FiO2 65 Test 01/05/19 05:34 01/05/19 07:15 01/05/19 12:36 01/05/19 14:10 White Blood Count 3.1 x10^3/uL (4.0-11.0) Red Blood Count 4.51 x10^6/uL (3.50-5.40) Hemoglobin 13.8 g/dL (12.0-15.5) Hematocrit 40.9 % (36.0-47.0) Mean Corpuscular Volume 91 fL (79-100) Mean Corpuscular Hemoglobin 31 pg (25-35) Mean Corpuscular Hemoglobin Concent 34 g/dL (31-37) Red Cell Distribution Width 15.6 % (11.5-14.5) Platelet Count 187 x10^3/uL (140-400) Neutrophils (%) (Auto) 80 % (31-73) Lymphocytes (%) (Auto) 17 % (24-48) Monocytes (%) (Auto) 2 % (0-9) Eosinophils (%) (Auto) 0 % (0-3) Basophils (%) (Auto) 1 % (0-3) Neutrophils # (Auto) 2.5 x10^3/uL (1.8-7.7) Lymphocytes # (Auto) 0.5 x10^3/uL (1.0-4.8) Monocytes # (Auto) 0.1 x10^3/uL (0.0-1.1) Eosinophils # (Auto) 0.0 x10^3/uL (0.0-0.7) Basophils # (Auto) 0.0 x10^3/uL (0.0-0.2) Sodium Level 145 mmol/L (136-145) Potassium Level 3.9 mmol/L (3.5-5.1) Chloride Level 108 mmol/L (98-107) Carbon Dioxide Level 23 mmol/L (21-32) Anion Gap 14 (6-14) Blood Urea Nitrogen 17 mg/dL (7-20) Creatinine 1.0 mg/dL (0.6-1.0) Estimated GFR (Cockcroft-Gault) 54.7 BUN/Creatinine Ratio 17 (6-20) Glucose Level 175 mg/dL (70-99) Calcium Level 8.6 mg/dL (8.5-10.1) Total Bilirubin 0.7 mg/dL (0.2-1.0) Aspartate Amino Transf (AST/SGOT) 17 U/L (15-37) Alanine Aminotransferase (ALT/SGPT) 25 U/L (14-59) Alkaline Phosphatase 92 U/L (46-116) Total Protein 6.3 g/dL (6.4-8.2) Albumin 3.3 g/dL (3.4-5.0) Albumin/Globulin Ratio 1.1 (1.0-1.7) O2 Saturation 91 % (92-99) Arterial Blood pH 7.44 (7.35-7.45) Arterial Blood pCO2 at Patient Temp 34 mmHg (35-46) Arterial Blood pO2 at Patient Temp 64 mmHg (65-108) Arterial Blood HCO3 22 mmol/L (21-28) Arterial Blood Base Excess -1 mmol/L (-3-3) FiO2 65 Glucose (Fingerstick) 223 mg/dL (70-99) Troponin I Quantitative 0.026 ng/mL (0.000-0.055) Triglycerides Level 93 mg/dL (0-150) Cholesterol Level 129 mg/dL (0-200) LDL Cholesterol, Calculated 78 mg/dL (0-100) VLDL Cholesterol, Calculated 19 mg/dL (0-40) Non-HDL Cholesterol Calculated 97 mg/dL (0-129) HDL Cholesterol 32 mg/dL (40-60) Cholesterol/HDL Ratio 4.0 Test 01/05/19 17:47 01/06/19 07:20 Glucose (Fingerstick) 147 mg/dL (70-99) O2 Saturation 91 % (92-99) Arterial Blood pH 7.42 (7.35-7.45) Arterial Blood pCO2 at Patient Temp 35 mmHg (35-46) Arterial Blood pO2 at Patient Temp 61 mmHg (65-108) Arterial Blood HCO3 22 mmol/L (21-28) Arterial Blood Base Excess -2 mmol/L (-3-3) FiO2 65% Laboratory Tests Test 01/05/19 12:36 01/05/19 14:10 01/05/19 17:47 01/06/19 07:20 Glucose (Fingerstick) 223 mg/dL (70-99) 147 mg/dL (70-99) Troponin I Quantitative 0.026 ng/mL (0.000-0.055) Triglycerides Level 93 mg/dL (0-150) Cholesterol Level 129 mg/dL (0-200) LDL Cholesterol, Calculated 78 mg/dL (0-100) VLDL Cholesterol, Calculated 19 mg/dL (0-40) Non-HDL Cholesterol Calculated 97 mg/dL (0-129) HDL Cholesterol 32 mg/dL (40-60) Cholesterol/HDL Ratio 4.0 O2 Saturation 91 % (92-99) Arterial Blood pH 7.42 (7.35-7.45) Arterial Blood pCO2 at Patient Temp 35 mmHg (35-46) Arterial Blood pO2 at Patient Temp 61 mmHg (65-108) Arterial Blood HCO3 22 mmol/L (21-28) Arterial Blood Base Excess -2 mmol/L (-3-3) FiO2 65% Medications Active Scripts Medications Dose Route/Sig Max Daily Dose Days Date Category Prednisone (Prednisone) 10 Mg Tablet 10 Mg PO DAILY 01/05/19 Reported Sildenafil (Sildenafil Citrate) 20 Mg Tablet 20 Mg PO TID 01/05/19 Reported Pantoprazole Sodium 40 Mg Tablet.dr 40 Mg PO DAILY 01/05/19 Reported Oxybutynin Chloride 5 Mg Tablet 5 Mg PO TID 01/05/19 Reported Neilmed Sinus Rinse Kit Refill (Sodium Chloride/Sodium Bicarb) 1 Each Packet 1 Each NS PRN Q4-6HRS PRN 01/05/19 Reported Montelukast Sodium Chew.tablet (Montelukast Sodium) 5 Mg Tab.chew 10 Mg PO HS 01/05/19 Reported Metoprolol Succinate ( Xl ) (Metoprolol Succinate) 25 Mg Tab.er.24h 1 Tab PO DAILY 01/05/19 Reported Probiotic-10 3 Billion Cell Cp (Lactobac No.41/Bifidobact No.7) 70 Mg Capsule 70 Mg PO DAILY 01/05/19 Reported Duoneb 0.5-3(2.5) Mg/3 Ml (Albuterol/Ipratropium) 3 Ml Ampul.neb 3 Ml NEB PRN QID PRN 01/05/19 Reported Furosemide 40 Mg Tablet 1 Tab PO DAILY 01/05/19 Reported Flovent 100MCG Diskus (Fluticasone Propionate) 100 Mcg Disk.w.dev 50 Mcg IH DAILY 01/05/19 Reported Colcrys (Colchicine) 0.6 Mg Tablet 1 Tab PO PRN 01/05/19 Reported Clopidogrel (Clopidogrel Bisulfate) 75 Mg Tablet 1 Tab PO DAILY 01/05/19 Reported Citalopram Hbr (Citalopram Hydrobromide) 20 Mg Tablet 1 Tab PO DAILY 01/05/19 Reported Azelastine Hcl 137 Mcg/0.137 Ml [place].pump 2 [place] NS BID 01/05/19 Reported Atorvastatin Calcium 10 Mg Tablet 1 Tab PO HS 01/05/19 Reported Aspirin 81 Mg Tab.chew 1 Tab PO DAILY 01/05/19 Reported Letairis (Ambrisentan) 10 Mg Tablet 10 Mg PO DAILY 01/05/19 Reported Ventolin Hfa Inhaler (Albuterol Sulfate) 18 Gm Hfa.aer.ad 2 Puff INH QID 01/05/19 Reported Allopurinol 100 Mg Tablet 1 Tab PO DAILY 01/05/19 Reported Potassium Chloride 20 Meq Tablet.er 20 Meq PO DAILY 01/05/19 Reported Metformin Hcl Er (Metformin Hcl) 500 Mg Tab.er.24h 500 Mg PO DAILYWBKFT 01/05/19 Reported Gabapentin 300 Mg Capsule 600 Mg PO HS 01/05/19 Reported Gabapentin 600 Mg Tablet 300 Mg PO DAILY PRN 01/05/19 Reported Impression . 1. Acute on chronic hypoxic respiratory failure in a patient who has severe pulmonary hypertension and being followed at the Pulmonary Hypert[facility] Clinic at [facility] by Dr. Naranjo. She has been on Revatio and Letairis. The patient is also on 15 liters of oxygen on a 24-hour basis. Some records from [facility] were reviewed. Etiology of her Pulmonary HTN appear to be from combination of diastolic HF and severe Right to left shunt. She has PFO closure in August 2018 She also has ASD closure as well. During recent right heart cath and CHARO , she was found to have small Rt to Lt shunt from right upper pulmonary vein. She has no PE, no ILD. she does have COPD and BOAZ. Now comes in with increasing dyspnea and worsening, hypoxia and likely related to acute right heart failure. No suspicion for any infectious etiology. Does not appear to have any exacerbation of chronic obstructive pulmonary disease. 2. Underlying chronic obstructive pulmonary disease. 3. Severe pulmonary hypertension. 4. atrial septal defect / PFO closure Plan . 1. Discussed with RN. Try off BiPAP.and use high flow canula 2. Mild diuresis as long as blood pressure can tolerate. 3. Continue Revatio and Letairis. 4. Lovenox for DVT prophylaxis. 5. Bronchodilators. 6. Supportive care. 7. Discussed Advanced Directives and she is a DNR, but prefers to have short-term CPR. 8. Cardiology rec. Echo reviewed DIANE CLOUD MD Jan 06, 2019 08:31
[2019-01-06] MEDS: AMBRISENTAN (LETAIRIS) 10 MG TABLET PO SCH (08:32)
[2019-01-06] MEDS: AZELASTINE NASAL SPRAY 30ML BOTTLE. NS SCH ×2 (08:32→20:59)
[2019-01-06] MEDS ORDERED: predniSONE 10 MG TABLET PO SCH (09:00)
[2019-01-06] MEDS: ALBUTEROL SULFATE 2.5 MG/3 ML NEBU. NEB SCH ×3 (10:54→19:59)
[2019-01-06] MEDS: ENOXAPARIN 40 MG/0.4 ML SYRINGE. SQ SCH (11:41)
[2019-01-06] MEDS: INSULIN LISPRO 300 UNITS/3 ML VIAL. SQ SCH ×3 (11:47→17:59)
[2019-01-06] MEDS ORDERED: hydrOXYzine 25 MG TABLET PO PRN (12:15)
--- NOTE | 2019-01-06 14:22 | PDOC ---
PROGRESS NOTES Chief Complaint Chief Complaint acute on chronic hypoxic respiratory failure cor pulmonale, acute systolic CHF exacerbation treated for primary pulmonary hypertension COPD, w/ bronchitis SIRS, no organ dysfunction History of Present Illness History of Present Illness plan, lasix, keep dry for CHF management PULM with Steroids, bipap, PULM and CV consult, transfer out of ICU, if able to taper steroids, may DC soon Vitals Vitals Vital Signs Date Time Temp Pulse Resp B/P (MAP) Pulse Ox O2 Delivery O2 Flow Rate FiO2 01/06/19 13:09 95 106/42 01/06/19 12:00 24 81 Nasal Cannula 15.0 01/06/19 08:00 98.2 98.2 Physical Exam General: Alert, Oriented X3, Cooperative, mild distress Heart: Regular rate Lungs: Crackles (bases) Abdomen: Soft, No tenderness Extremities: No cyanosis, Other (trace to 1+) Skin: No breakdown, No significant lesion Labs LABS Laboratory Tests Test 01/05/19 17:47 01/06/19 07:20 01/06/19 08:38 01/06/19 11:44 Glucose (Fingerstick) 147 mg/dL (70-99) 144 mg/dL (70-99) 169 mg/dL (70-99) O2 Saturation 91 % (92-99) Arterial Blood pH 7.42 (7.35-7.45) Arterial Blood pCO2 at Patient Temp 35 mmHg (35-46) Arterial Blood pO2 at Patient Temp 61 mmHg (65-108) Arterial Blood HCO3 22 mmol/L (21-28) Arterial Blood Base Excess -2 mmol/L (-3-3) FiO2 65% Assessment and Plan Assessmemt and Plan Problems Medical Problems: (1) Acute respiratory failure Status: Acute (2) Chronic respiratory failure Status: Chronic (3) Hypoxemia Status: Chronic (4) Pulmonary hypertension Status: Acute Comment Review of Relevant I have reviewed the following items adore (where applicable) has been applied. Labs Laboratory Tests Test 01/04/19 21:00 01/04/19 22:24 01/04/19 22:46 01/05/19 02:13 O2 Saturation 84 % (92-99) 91 % (92-99) Arterial Blood pH 7.43 (7.35-7.45) 7.43 (7.35-7.45) Arterial Blood pCO2 at Patient Temp 31 mmHg (35-46) 30 mmHg (35-46) Arterial Blood pO2 at Patient Temp 49 mmHg (65-108) 62 mmHg (65-108) Arterial Blood HCO3 20 mmol/L (21-28) 19 mmol/L (21-28) Arterial Blood Base Excess -3 mmol/L (-3-3) -4 mmol/L (-3-3) White Blood Count 5.9 x10^3/uL (4.0-11.0) Red Blood Count 5.06 x10^6/uL (3.50-5.40) Hemoglobin 15.5 g/dL (12.0-15.5) Hematocrit 45.8 % (36.0-47.0) Mean Corpuscular Volume 91 fL (79-100) Mean Corpuscular Hemoglobin 31 pg (25-35) Mean Corpuscular Hemoglobin Concent 34 g/dL (31-37) Red Cell Distribution Width 16.3 % (11.5-14.5) Platelet Count 219 x10^3/uL (140-400) Neutrophils (%) (Auto) 56 % (31-73) Lymphocytes (%) (Auto) 32 % (24-48) Monocytes (%) (Auto) 9 % (0-9) Eosinophils (%) (Auto) 2 % (0-3) Basophils (%) (Auto) 1 % (0-3) Neutrophils # (Auto) 3.4 x10^3/uL (1.8-7.7) Lymphocytes # (Auto) 1.9 x10^3/uL (1.0-4.8) Monocytes # (Auto) 0.5 x10^3/uL (0.0-1.1) Eosinophils # (Auto) 0.1 x10^3/uL (0.0-0.7) Basophils # (Auto) 0.1 x10^3/uL (0.0-0.2) Sodium Level 142 mmol/L (136-145) Potassium Level 4.3 mmol/L (3.5-5.1) Chloride Level 108 mmol/L (98-107) Carbon Dioxide Level 21 mmol/L (21-32) Anion Gap 13 (6-14) Blood Urea Nitrogen 20 mg/dL (7-20) Creatinine 1.1 mg/dL (0.6-1.0) Estimated GFR (Cockcroft-Gault) 49.0 BUN/Creatinine Ratio 18 (6-20) Glucose Level 135 mg/dL (70-99) Calcium Level 8.8 mg/dL (8.5-10.1) Total Bilirubin 0.9 mg/dL (0.2-1.0) Aspartate Amino Transf (AST/SGOT) 26 U/L (15-37) Alanine Aminotransferase (ALT/SGPT) 21 U/L (14-59) Alkaline Phosphatase 96 U/L (46-116) UH-Kmm-V-Type Natriuretic Peptide 22289 pg/mL (0-124) Total Protein 6.6 g/dL (6.4-8.2) Albumin 3.6 g/dL (3.4-5.0) Albumin/Globulin Ratio 1.2 (1.0-1.7) FiO2 65 Test 01/05/19 05:34 01/05/19 07:15 01/05/19 12:36 01/05/19 14:10 White Blood Count 3.1 x10^3/uL (4.0-11.0) Red Blood Count 4.51 x10^6/uL (3.50-5.40) Hemoglobin 13.8 g/dL (12.0-15.5) Hematocrit 40.9 % (36.0-47.0) Mean Corpuscular Volume 91 fL (79-100) Mean Corpuscular Hemoglobin 31 pg (25-35) Mean Corpuscular Hemoglobin Concent 34 g/dL (31-37) Red Cell Distribution Width 15.6 % (11.5-14.5) Platelet Count 187 x10^3/uL (140-400) Neutrophils (%) (Auto) 80 % (31-73) Lymphocytes (%) (Auto) 17 % (24-48) Monocytes (%) (Auto) 2 % (0-9) Eosinophils (%) (Auto) 0 % (0-3) Basophils (%) (Auto) 1 % (0-3) Neutrophils # (Auto) 2.5 x10^3/uL (1.8-7.7) Lymphocytes # (Auto) 0.5 x10^3/uL (1.0-4.8) Monocytes # (Auto) 0.1 x10^3/uL (0.0-1.1) Eosinophils # (Auto) 0.0 x10^3/uL (0.0-0.7) Basophils # (Auto) 0.0 x10^3/uL (0.0-0.2) Sodium Level 145 mmol/L (136-145) Potassium Level 3.9 mmol/L (3.5-5.1) Chloride Level 108 mmol/L (98-107) Carbon Dioxide Level 23 mmol/L (21-32) Anion Gap 14 (6-14) Blood Urea Nitrogen 17 mg/dL (7-20) Creatinine 1.0 mg/dL (0.6-1.0) Estimated GFR (Cockcroft-Gault) 54.7 BUN/Creatinine Ratio 17 (6-20) Glucose Level 175 mg/dL (70-99) Calcium Level 8.6 mg/dL (8.5-10.1) Total Bilirubin 0.7 mg/dL (0.2-1.0) Aspartate Amino Transf (AST/SGOT) 17 U/L (15-37) Alanine Aminotransferase (ALT/SGPT) 25 U/L (14-59) Alkaline Phosphatase 92 U/L (46-116) Total Protein 6.3 g/dL (6.4-8.2) Albumin 3.3 g/dL (3.4-5.0) Albumin/Globulin Ratio 1.1 (1.0-1.7) O2 Saturation 91 % (92-99) Arterial Blood pH 7.44 (7.35-7.45) Arterial Blood pCO2 at Patient Temp 34 mmHg (35-46) Arterial Blood pO2 at Patient Temp 64 mmHg (65-108) Arterial Blood HCO3 22 mmol/L (21-28) Arterial Blood Base Excess -1 mmol/L (-3-3) FiO2 65 Glucose (Fingerstick) 223 mg/dL (70-99) Troponin I Quantitative 0.026 ng/mL (0.000-0.055) Triglycerides Level 93 mg/dL (0-150) Cholesterol Level 129 mg/dL (0-200) LDL Cholesterol, Calculated 78 mg/dL (0-100) VLDL Cholesterol, Calculated 19 mg/dL (0-40) Non-HDL Cholesterol Calculated 97 mg/dL (0-129) HDL Cholesterol 32 mg/dL (40-60) Cholesterol/HDL Ratio 4.0 Test 01/05/19 17:47 01/06/19 07:20 01/06/19 08:38 01/06/19 11:44 Glucose (Fingerstick) 147 mg/dL (70-99) 144 mg/dL (70-99) 169 mg/dL (70-99) O2 Saturation 91 % (92-99) Arterial Blood pH 7.42 (7.35-7.45) Arterial Blood pCO2 at Patient Temp 35 mmHg (35-46) Arterial Blood pO2 at Patient Temp 61 mmHg (65-108) Arterial Blood HCO3 22 mmol/L (21-28) Arterial Blood Base Excess -2 mmol/L (-3-3) FiO2 65% Laboratory Tests Test 01/05/19 17:47 01/06/19 07:20 01/06/19 08:38 01/06/19 11:44 Glucose (Fingerstick) 147 mg/dL (70-99) 144 mg/dL (70-99) 169 mg/dL (70-99) O2 Saturation 91 % (92-99) Arterial Blood pH 7.42 (7.35-7.45) Arterial Blood pCO2 at Patient Temp 35 mmHg (35-46) Arterial Blood pO2 at Patient Temp 61 mmHg (65-108) Arterial Blood HCO3 22 mmol/L (21-28) Arterial Blood Base Excess -2 mmol/L (-3-3) FiO2 65% Medications Current Medications Methylprednisolone Sodium Succinate (SOLU-Medrol 125MG VIAL) 125 mg STK-MED ONCE .ROUTE ; Start 01/04/19 at 22:15; Stop 01/04/19 at 22:15; Status DC Methylprednisolone Sodium Succinate (SOLU-Medrol 125MG VIAL) 125 mg 1X ONCE IV Last administered on 01/04/19at 22:20; Start 01/04/19 at 22:15; Stop 01/04/19 at 22:30; Status DC Ondansetron HCl (Zofran) 4 mg PRN Q8HRS PRN IV NAUSEA/VOMITING; Start 01/04/19 at 23:30; Stop 01/05/19 at 23:29; Status DC Albuterol/ Ipratropium (Duoneb) 3 ml RTQID NEB Last administered on 01/05/19at 06:59; Start 01/05/19 at 08:00; Stop 01/05/19 at 09:23; Status DC Methylprednisolone Sodium Succinate (SOLU-Medrol 40MG VIAL) 40 mg Q8HRS IV Last administered on 01/06/19 13:09; Start 01/05/19 at 06:00 Furosemide (Lasix) 40 mg 1X ONCE IVP Last administered on 01/05/19 00:06; Start 01/05/19 at 00:00; Stop 01/05/19 at 00:01; Status DC Allopurinol (Zyloprim) 100 mg DAILY PO Last administered on 01/06/19 08:29; Start 01/05/19 at 10:00 Aspirin (Children'S Aspirin) 81 mg DAILY PO Last administered on 01/06/19 08:29; Start 01/05/19 at 10:00 Atorvastatin Calcium (Lipitor) 10 mg HS PO Last administered on 01/05/19 21:11; Start 01/05/19 at 21:00 Azelastine HCl (Astelin) 2 spray BID NS Last administered on 01/06/19 08:32; Start 01/05/19 at 10:00 Citalopram Hydrobromide (CeleXA) 20 mg DAILY PO Last administered on 01/06/19 08:28; Start 01/05/19 at 10:00 Clopidogrel Bisulfate (Plavix) 75 mg DAILY PO Last administered on 01/06/19 08:29; Start 01/05/19 at 10:00 Furosemide (Lasix) 40 mg DAILY PO Last administered on 01/06/19 08:29; Start 01/05/19 at 10:00 Gabapentin (Neurontin) 600 mg HS PO Last administered on 01/05/19 21:11; Start 01/05/19 at 21:00 Albuterol Sulfate (Ventolin Neb Soln) 2.5 mg PRN Q6HRS PRN NEB SHORTNESS OF BREATH; Start 01/05/19 at 09:15 Metformin HCl (Glucophage Xr) 500 mg DAILYWBKFT PO Last administered on 01/06/19 08:28; Start 01/05/19 at 11:30 Metoprolol Succinate (Toprol Xl) 25 mg DAILY PO Last administered on 01/06/19 08:30; Start 01/05/19 at 10:00 Oxybutynin Chloride (Ditropan) 5 mg TID PO Last administered on 01/06/19 13:09; Start 01/05/19 at 10:00 Pantoprazole Sodium (Protonix) 40 mg DAILYAC PO Last administered on 01/06/19 08:29; Start 01/05/19 at 10:00 Prednisone (Prednisone) 10 mg DAILY PO ; Start 01/06/19 at 09:00; Status UNV Sildenafil Citrate (Revatio) 20 mg TID PO Last administered on 01/06/19 13:09; Start 01/05/19 at 11:00 Albuterol Sulfate (Ventolin Neb Soln) 2.5 mg RTQID NEB Last administered on 01/06/19 10:54; Start 01/06/19 at 08:00 Non-Formulary Medication (Ambrisentan (Letairis)) 10 mg DAILY PO Last administered on 01/06/19 08:32; Start 01/05/19 at 13:00 Budesonide (Pulmicort) 0.5 mg RTBID NEB Last administered on 01/06/19 07:25; Start 01/05/19 at 10:00 Gabapentin (Neurontin) 300 mg PRN DAILY PRN PO NEUROPATHY; Start 01/05/19 at 09:11 Lactobacillus Rhamnosus (Culturelle) 1 cap DAILY PO Last administered on 01/06/19 08:29; Start 01/05/19 at 10:00 Montelukast Sodium (Singulair) 10 mg QHS PO Last administered on 01/05/19 21:10; Start 01/05/19 at 21:00 Potassium Chloride (Klor-Con) 20 meq DAILYWBKFT PO Last administered on 01/06/19 08:29; Start 01/05/19 at 10:00 Non-Formulary Medication (Sodium Chloride/ Sodium Bicarb (Neilmed Sinus Rinse Kit Refill)) 1 each PRN Q4-6HRS PRN NS ALLERGIES; Start 01/05/19 at 09:15; Status UNV Albuterol/ Ipratropium (Duoneb) 3 ml Q4HRS W/A NEB Last administered on 01/06/19 07:25; Start 01/05/19 at 09:30; Stop 01/06/19 at 09:29; Status DC Enoxaparin Sodium (Lovenox Per Pharmacy Prophylaxis Dosing) 1 each PRN DAILY PRN MC SEE COMMENTS; Start 01/05/19 at 09:30 Enoxaparin Sodium (Lovenox 40mg Syringe) 40 mg Q24H SQ Last administered on 01/06/19at 11:41; Start 01/05/19 at 10:00 Furosemide (Lasix) 20 mg 1X ONCE IVP Last administered on 01/05/19at 12:38; Start 01/05/19 at 13:00; Stop 01/05/19 at 13:01; Status DC Insulin Human Lispro (HumaLOG) 0-5 UNITS TIDWMEALS SQ Last administered on 01/06/19at 11:47; Start 01/05/19 at 17:00 Dextrose (Dextrose 50%-Water Syringe) 12.5 gm PRN Q15MIN PRN IV SEE COMMENTS; Start 01/05/19 at 14:00 Hydroxyzine HCl (Atarax) 25 mg 1X PRN PO ITCHING Last administered on 01/06/19at 12:20; Start 01/06/19 at 12:15 Active Scripts Active Reported Prednisone (Prednisone) 10 Mg Tablet 10 Mg PO DAILY Sildenafil (Sildenafil Citrate) 20 Mg Tablet 20 Mg PO TID Pantoprazole Sodium 40 Mg Tablet.dr 40 Mg PO DAILY Oxybutynin Chloride 5 Mg Tablet 5 Mg PO TID [facility] Sinus Rinse Kit Refill (Sodium Chloride/Sodium Bicarb) 1 Each Packet 1 Each NS PRN Q4-6HRS PRN Montelukast Sodium Chew.tablet (Montelukast Sodium) 5 Mg Tab.chew 10 Mg PO HS Metoprolol Succinate ( Xl ) (Metoprolol Succinate) 25 Mg Tab.er.24h 1 Tab PO DAILY Probiotic-10 3 Billion Cell Cp (Lactobac No.41/Bifidobact No.7) 70 Mg Capsule 70 Mg PO DAILY Duoneb 0.5-3(2.5) Mg/3 Ml (Albuterol/Ipratropium) 3 Ml Ampul.neb 3 Ml NEB PRN QID PRN Furosemide 40 Mg Tablet 1 Tab PO DAILY Flovent 100MCG Diskus (Fluticasone Propionate) 100 Mcg Disk.w.dev 50 Mcg IH DAILY Colcrys (Colchicine) 0.6 Mg Tablet 1 Tab PO PRN Clopidogrel (Clopidogrel Bisulfate) 75 Mg Tablet 1 Tab PO DAILY Citalopram Hbr (Citalopram Hydrobromide) 20 Mg Tablet 1 Tab PO DAILY Azelastine Hcl 137 Mcg/0.137 Ml [place].pump 2 [place] NS BID Atorvastatin Calcium 10 Mg Tablet 1 Tab PO HS Aspirin 81 Mg Tab.chew 1 Tab PO DAILY Letairis (Ambrisentan) 10 Mg Tablet 10 Mg PO DAILY Ventolin Hfa Inhaler (Albuterol Sulfate) 18 Gm Hfa.aer.ad 2 Puff INH QID Allopurinol 100 Mg Tablet 1 Tab PO DAILY Potassium Chloride 20 Meq Tablet.er 20 Meq PO DAILY Metformin Hcl Er (Metformin Hcl) 500 Mg Tab.er.24h 500 Mg PO DAILYWBKFT Gabapentin 300 Mg Capsule 600 Mg PO HS Gabapentin 600 Mg Tablet 300 Mg PO DAILY PRN Vitals/I & O Vital Sign - Last 24 Hours 01/05/19 01/05/19 01/05/19 01/05/19 15:00 15:13 16:00 16:00 Temp 98.2 98.2 Pulse 93 92 Resp 21 27 B/P (MAP) 106/58 (74) 95/47 (63) Pulse Ox 92 93 91 O2 Delivery BiPAP/CPAP BiPAP/CPAP Bi-pap BiPAP/CPAP 01/05/19 01/05/19 01/05/19 01/05/19 17:00 17:26 18:00 19:00 Pulse 98 97 94 Resp 28 28 22 B/P (MAP) 96/46 (63) 104/53 (70) 110/54 (72) Pulse Ox 93 91 83 93 O2 Delivery BiPAP/CPAP BiPAP/CPAP Nasal Cannula Nasal Cannula O2 Flow Rate 15.0 01/05/19 01/05/19 01/05/19 01/05/19 19:47 20:00 20:00 20:00 Temp 98.1 98.1 Pulse 92 Resp 24 B/P (MAP) 104/55 (71) Pulse Ox 93 94 O2 Delivery BiPAP/CPAP Nasal Cannula Bi-pap O2 Flow Rate 15.0 15.0 01/05/19 01/05/19 01/05/19 01/05/19 21:00 21:11 22:00 23:00 Pulse 92 89 80 86 Resp 22 25 24 B/P (MAP) 103/57 (72) 110/64 (79) 112/60 (77) Pulse Ox 93 91 90 O2 Delivery Nasal Cannula Nasal Cannula Nasal Cannula 01/06/19 01/06/19 01/06/19 01/06/19 00:00 00:00 00:00 00:07 Temp 97.2 97.2 Pulse 90 Resp 24 B/P (MAP) 122/62 (82) Pulse Ox 85 91 O2 Delivery Bi-pap Nasal Cannula BiPAP/CPAP O2 Flow Rate 15.0 15.0 01/06/19 01/06/19 01/06/19 01/06/19 01:00 02:00 02:18 03:00 Pulse 88 80 82 Resp 24 24 24 B/P (MAP) 113/57 (75) 109/56 (73) 107/55 (72) Pulse Ox 90 87 91 88 O2 Delivery Nasal Cannula Nasal Cannula BiPAP/CPAP Nasal Cannula 01/06/19 01/06/19 01/06/19 01/06/19 04:00 04:00 04:00 05:00 Temp 98.0 98.0 Pulse 74 74 Resp 18 18 B/P (MAP) 109/56 (73) 104/53 (70) Pulse Ox 87 87 O2 Delivery Bi-pap Nasal Cannula Nasal Cannula O2 Flow Rate 15.0 15.0 01/06/19 01/06/19 01/06/19 01/06/19 05:46 06:00 07:00 07:17 Pulse 74 66 Resp 19 16 B/P (MAP) 101/50 (67) 94/61 (72) Pulse Ox 89 87 87 93 O2 Delivery BiPAP/CPAP Nasal Cannula BiPAP/CPAP BiPAP/CPAP 01/06/19 01/06/19 01/06/19 01/06/19 08:00 08:00 08:30 08:31 Temp 98.2 98.2 Pulse 78 74 Resp 20 B/P (MAP) 90/48 (62) 90/48 101/50 Pulse Ox 84 O2 Delivery Nasal Cannula Bi-pap O2 Flow Rate 15.0 15.0 01/06/19 01/06/19 01/06/19 01/06/19 09:00 10:54 12:00 13:09 Pulse 88 89 95 Resp 22 24 B/P (MAP) 103/56 (72) 97/44 (61) 106/42 Pulse Ox 81 87 81 O2 Delivery Nasal Cannula Nasal Cannula Nasal Cannula O2 Flow Rate 15.0 15.0 15.0 Intake and Output 01/05/19 01/05/19 01/06/19 15:00 23:00 07:00 Intake Total 500 ml 300 ml 360 ml Output Total 350 ml 450 ml 350 ml Balance 150 ml -150 ml 10 ml MELLISSA BIGGS MD Jan 06, 2019 14:22
--- NOTE | 2019-01-06 14:33 | PDOC ---
PROGRESS NOTES Subjective Subjective Patient seen and examined The patient reports feeling significantly better. Objective Objective Vital Signs Date Time Temp Pulse Resp B/P (MAP) Pulse Ox O2 Delivery O2 Flow Rate FiO2 01/06/19 13:09 95 106/42 01/06/19 12:00 24 81 Nasal Cannula 15.0 01/06/19 08:00 98.2 98.2 Intake and Output 01/06/19 07:00 Intake Total 1160 ml Output Total 1150 ml Balance 10 ml Intake Oral 1160 ml Output Urine Total 1150 ml # Voids 1 # Bowel Movements 1 Physical Exam Abdomen: Normal bowel sounds Heart: Regular rate General: mild distress Lungs: Other (mildly decreased breath sounds) Assessment Assessment Problems Medical Problems: (1) Acute respiratory failure Status: Acute (2) Chronic respiratory failure Status: Chronic (3) Hypoxemia Status: Chronic (4) Pulmonary hypertension Status: Acute 1. Acute on chronic hypoxic respiratory failure with known pulmonary HTN, CHF, and COPD. Patient has significantly improved today. Will continue present treatment. 2. Recent ASD percutaneous closure: at [facility]. records reviewed. 3. Acute on chronic diastolic CHF/cor pulmonale 4. HTN: controlled 5. HLP 6. DM2. Continue medications as per the primary service. 7. CAD: PTCA 1991 and stent placement 2000. Last stress test 2 yrs ago. 8. Iodine allergy Comment Review of Relevant I have reviewed the following items adore (where applicable) has been applied. Labs Laboratory Tests Test 01/04/19 21:00 01/04/19 22:24 01/04/19 22:46 01/05/19 02:13 O2 Saturation 84 % (92-99) 91 % (92-99) Arterial Blood pH 7.43 (7.35-7.45) 7.43 (7.35-7.45) Arterial Blood pCO2 at Patient Temp 31 mmHg (35-46) 30 mmHg (35-46) Arterial Blood pO2 at Patient Temp 49 mmHg (65-108) 62 mmHg (65-108) Arterial Blood HCO3 20 mmol/L (21-28) 19 mmol/L (21-28) Arterial Blood Base Excess -3 mmol/L (-3-3) -4 mmol/L (-3-3) White Blood Count 5.9 x10^3/uL (4.0-11.0) Red Blood Count 5.06 x10^6/uL (3.50-5.40) Hemoglobin 15.5 g/dL (12.0-15.5) Hematocrit 45.8 % (36.0-47.0) Mean Corpuscular Volume 91 fL (79-100) Mean Corpuscular Hemoglobin 31 pg (25-35) Mean Corpuscular Hemoglobin Concent 34 g/dL (31-37) Red Cell Distribution Width 16.3 % (11.5-14.5) Platelet Count 219 x10^3/uL (140-400) Neutrophils (%) (Auto) 56 % (31-73) Lymphocytes (%) (Auto) 32 % (24-48) Monocytes (%) (Auto) 9 % (0-9) Eosinophils (%) (Auto) 2 % (0-3) Basophils (%) (Auto) 1 % (0-3) Neutrophils # (Auto) 3.4 x10^3/uL (1.8-7.7) Lymphocytes # (Auto) 1.9 x10^3/uL (1.0-4.8) Monocytes # (Auto) 0.5 x10^3/uL (0.0-1.1) Eosinophils # (Auto) 0.1 x10^3/uL (0.0-0.7) Basophils # (Auto) 0.1 x10^3/uL (0.0-0.2) Sodium Level 142 mmol/L (136-145) Potassium Level 4.3 mmol/L (3.5-5.1) Chloride Level 108 mmol/L (98-107) Carbon Dioxide Level 21 mmol/L (21-32) Anion Gap 13 (6-14) Blood Urea Nitrogen 20 mg/dL (7-20) Creatinine 1.1 mg/dL (0.6-1.0) Estimated GFR (Cockcroft-Gault) 49.0 BUN/Creatinine Ratio 18 (6-20) Glucose Level 135 mg/dL (70-99) Calcium Level 8.8 mg/dL (8.5-10.1) Total Bilirubin 0.9 mg/dL (0.2-1.0) Aspartate Amino Transf (AST/SGOT) 26 U/L (15-37) Alanine Aminotransferase (ALT/SGPT) 21 U/L (14-59) Alkaline Phosphatase 96 U/L (46-116) LF-Ati-S-Type Natriuretic Peptide 69097 pg/mL (0-124) Total Protein 6.6 g/dL (6.4-8.2) Albumin 3.6 g/dL (3.4-5.0) Albumin/Globulin Ratio 1.2 (1.0-1.7) FiO2 65 Test 01/05/19 05:34 01/05/19 07:15 01/05/19 12:36 01/05/19 14:10 White Blood Count 3.1 x10^3/uL (4.0-11.0) Red Blood Count 4.51 x10^6/uL (3.50-5.40) Hemoglobin 13.8 g/dL (12.0-15.5) Hematocrit 40.9 % (36.0-47.0) Mean Corpuscular Volume 91 fL (79-100) Mean Corpuscular Hemoglobin 31 pg (25-35) Mean Corpuscular Hemoglobin Concent 34 g/dL (31-37) Red Cell Distribution Width 15.6 % (11.5-14.5) Platelet Count 187 x10^3/uL (140-400) Neutrophils (%) (Auto) 80 % (31-73) Lymphocytes (%) (Auto) 17 % (24-48) Monocytes (%) (Auto) 2 % (0-9) Eosinophils (%) (Auto) 0 % (0-3) Basophils (%) (Auto) 1 % (0-3) Neutrophils # (Auto) 2.5 x10^3/uL (1.8-7.7) Lymphocytes # (Auto) 0.5 x10^3/uL (1.0-4.8) Monocytes # (Auto) 0.1 x10^3/uL (0.0-1.1) Eosinophils # (Auto) 0.0 x10^3/uL (0.0-0.7) Basophils # (Auto) 0.0 x10^3/uL (0.0-0.2) Sodium Level 145 mmol/L (136-145) Potassium Level 3.9 mmol/L (3.5-5.1) Chloride Level 108 mmol/L (98-107) Carbon Dioxide Level 23 mmol/L (21-32) Anion Gap 14 (6-14) Blood Urea Nitrogen 17 mg/dL (7-20) Creatinine 1.0 mg/dL (0.6-1.0) Estimated GFR (Cockcroft-Gault) 54.7 BUN/Creatinine Ratio 17 (6-20) Glucose Level 175 mg/dL (70-99) Calcium Level 8.6 mg/dL (8.5-10.1) Total Bilirubin 0.7 mg/dL (0.2-1.0) Aspartate Amino Transf (AST/SGOT) 17 U/L (15-37) Alanine Aminotransferase (ALT/SGPT) 25 U/L (14-59) Alkaline Phosphatase 92 U/L (46-116) Total Protein 6.3 g/dL (6.4-8.2) Albumin 3.3 g/dL (3.4-5.0) Albumin/Globulin Ratio 1.1 (1.0-1.7) O2 Saturation 91 % (92-99) Arterial Blood pH 7.44 (7.35-7.45) Arterial Blood pCO2 at Patient Temp 34 mmHg (35-46) Arterial Blood pO2 at Patient Temp 64 mmHg (65-108) Arterial Blood HCO3 22 mmol/L (21-28) Arterial Blood Base Excess -1 mmol/L (-3-3) FiO2 65 Glucose (Fingerstick) 223 mg/dL (70-99) Troponin I Quantitative 0.026 ng/mL (0.000-0.055) Triglycerides Level 93 mg/dL (0-150) Cholesterol Level 129 mg/dL (0-200) LDL Cholesterol, Calculated 78 mg/dL (0-100) VLDL Cholesterol, Calculated 19 mg/dL (0-40) Non-HDL Cholesterol Calculated 97 mg/dL (0-129) HDL Cholesterol 32 mg/dL (40-60) Cholesterol/HDL Ratio 4.0 Test 01/05/19 17:47 01/06/19 07:20 01/06/19 08:38 01/06/19 11:44 Glucose (Fingerstick) 147 mg/dL (70-99) 144 mg/dL (70-99) 169 mg/dL (70-99) O2 Saturation 91 % (92-99) Arterial Blood pH 7.42 (7.35-7.45) Arterial Blood pCO2 at Patient Temp 35 mmHg (35-46) Arterial Blood pO2 at Patient Temp 61 mmHg (65-108) Arterial Blood HCO3 22 mmol/L (21-28) Arterial Blood Base Excess -2 mmol/L (-3-3) FiO2 65% Laboratory Tests Test 01/05/19 17:47 01/06/19 07:20 01/06/19 08:38 01/06/19 11:44 Glucose (Fingerstick) 147 mg/dL (70-99) 144 mg/dL (70-99) 169 mg/dL (70-99) O2 Saturation 91 % (92-99) Arterial Blood pH 7.42 (7.35-7.45) Arterial Blood pCO2 at Patient Temp 35 mmHg (35-46) Arterial Blood pO2 at Patient Temp 61 mmHg (65-108) Arterial Blood HCO3 22 mmol/L (21-28) Arterial Blood Base Excess -2 mmol/L (-3-3) FiO2 65% Medications Current Medications Methylprednisolone Sodium Succinate (SOLU-Medrol 125MG VIAL) 125 mg STK-MED ONCE .ROUTE ; Start 01/04/19 at 22:15; Stop 01/04/19 at 22:15; Status DC Methylprednisolone Sodium Succinate (SOLU-Medrol 125MG VIAL) 125 mg 1X ONCE IV Last administered on 01/04/19at 22:20; Start 01/04/19 at 22:15; Stop 01/04/19 at 22:30; Status DC Ondansetron HCl (Zofran) 4 mg PRN Q8HRS PRN IV NAUSEA/VOMITING; Start 01/04/19 at 23:30; Stop 01/05/19 at 23:29; Status DC Albuterol/ Ipratropium (Duoneb) 3 ml RTQID NEB Last administered on 01/05/19at 06:59; Start 01/05/19 at 08:00; Stop 01/05/19 at 09:23; Status DC Methylprednisolone Sodium Succinate (SOLU-Medrol 40MG VIAL) 40 mg Q8HRS IV Last administered on 01/06/19at 13:09; Start 01/05/19 at 06:00 Furosemide (Lasix) 40 mg 1X ONCE IVP Last administered on 01/05/19at 00:06; Start 01/05/19 at 00:00; Stop 01/05/19 at 00:01; Status DC Allopurinol (Zyloprim) 100 mg DAILY PO Last administered on 01/06/19 08:29; Start 01/05/19 at 10:00 Aspirin (Children'S Aspirin) 81 mg DAILY PO Last administered on 01/06/19 08:29; Start 01/05/19 at 10:00 Atorvastatin Calcium (Lipitor) 10 mg HS PO Last administered on 01/05/19 21:11; Start 01/05/19 at 21:00 Azelastine HCl (Astelin) 2 spray BID NS Last administered on 01/06/19 08:32; Start 01/05/19 at 10:00 Citalopram Hydrobromide (CeleXA) 20 mg DAILY PO Last administered on 01/06/19 08:28; Start 01/05/19 at 10:00 Clopidogrel Bisulfate (Plavix) 75 mg DAILY PO Last administered on 01/06/19 08:29; Start 01/05/19 at 10:00 Furosemide (Lasix) 40 mg DAILY PO Last administered on 01/06/19 08:29; Start 01/05/19 at 10:00 Gabapentin (Neurontin) 600 mg HS PO Last administered on 01/05/19 21:11; Start 01/05/19 at 21:00 Albuterol Sulfate (Ventolin Neb Soln) 2.5 mg PRN Q6HRS PRN NEB SHORTNESS OF BREATH; Start 01/05/19 at 09:15 Metformin HCl (Glucophage Xr) 500 mg DAILYWBKFT PO Last administered on 01/06/19 08:28; Start 01/05/19 at 11:30 Metoprolol Succinate (Toprol Xl) 25 mg DAILY PO Last administered on 01/06/19 08:30; Start 01/05/19 at 10:00 Oxybutynin Chloride (Ditropan) 5 mg TID PO Last administered on 01/06/19 13:09; Start 01/05/19 at 10:00 Pantoprazole Sodium (Protonix) 40 mg DAILYAC PO Last administered on 01/06/19 08:29; Start 01/05/19 at 10:00 Prednisone (Prednisone) 10 mg DAILY PO ; Start 01/06/19 at 09:00; Status UNV Sildenafil Citrate (Revatio) 20 mg TID PO Last administered on 01/06/19 13:09; Start 01/05/19 at 11:00 Albuterol Sulfate (Ventolin Neb Soln) 2.5 mg RTQID NEB Last administered on 01/06/19 10:54; Start 01/06/19 at 08:00 Non-Formulary Medication (Ambrisentan (Letairis)) 10 mg DAILY PO Last administered on 01/06/19 08:32; Start 01/05/19 at 13:00 Budesonide (Pulmicort) 0.5 mg RTBID NEB Last administered on 01/06/19 07:25; Start 01/05/19 at 10:00 Gabapentin (Neurontin) 300 mg PRN DAILY PRN PO NEUROPATHY; Start 01/05/19 at 09:11 Lactobacillus Rhamnosus (Culturelle) 1 cap DAILY PO Last administered on 01/06/19 08:29; Start 01/05/19 at 10:00 Montelukast Sodium (Singulair) 10 mg QHS PO Last administered on 01/05/19 21:10; Start 01/05/19 at 21:00 Potassium Chloride (Klor-Con) 20 meq DAILYWBKFT PO Last administered on 01/06/19 08:29; Start 01/05/19 at 10:00 Non-Formulary Medication (Sodium Chloride/ Sodium Bicarb (Neilmed Sinus Rinse Ki t Refill)) 1 each PRN Q4-6HRS PRN NS ALLERGIES; Start 01/05/19 at 09:15; Status UNV Albuterol/ Ipratropium (Duoneb) 3 ml Q4HRS W/A NEB Last administered on 01/06/19 07:25; Start 01/05/19 at 09:30; Stop 01/06/19 at 09:29; Status DC Enoxaparin Sodium (Lovenox Per Pharmacy Prophylaxis Dosing) 1 each PRN DAILY PRN MC SEE COMMENTS; Start 01/05/19 at 09:30 Enoxaparin Sodium (Lovenox 40mg Syringe) 40 mg Q24H SQ Last administered on 01/06/19 11:41; Start 01/05/19 at 10:00 Furosemide (Lasix) 20 mg 1X ONCE IVP Last administered on 01/05/19 12:38; Start 01/05/19 at 13:00; Stop 01/05/19 at 13:01; Status DC Insulin Human Lispro (HumaLOG) 0-5 UNITS TIDWMEALS SQ Last administered on 01/06/19at 11:47; Start 01/05/19 at 17:00 Dextrose (Dextrose 50%-Water Syringe) 12.5 gm PRN Q15MIN PRN IV SEE COMMENTS; Start 01/05/19 at 14:00 Hydroxyzine HCl (Atarax) 25 mg 1X PRN PO ITCHING Last administered on 01/06/19at 12:20; Start 01/06/19 at 12:15 Active Scripts Active Reported Prednisone (Prednisone) 10 Mg Tablet 10 Mg PO DAILY Sildenafil (Sildenafil Citrate) 20 Mg Tablet 20 Mg PO TID Pantoprazole Sodium 40 Mg Tablet.dr 40 Mg PO DAILY Oxybutynin Chloride 5 Mg Tablet 5 Mg PO TID Neilmed Sinus Rinse Kit Refill (Sodium Chloride/Sodium Bicarb) 1 Each Packet 1 Each NS PRN Q4-6HRS PRN Montelukast Sodium Chew.tablet (Montelukast Sodium) 5 Mg Tab.chew 10 Mg PO HS Metoprolol Succinate ( Xl ) (Metoprolol Succinate) 25 Mg Tab.er.24h 1 Tab PO DAILY Probiotic-10 3 Billion Cell Cp (Lactobac No.41/Bifidobact No.7) 70 Mg Capsule 70 Mg PO DAILY Duoneb 0.5-3(2.5) Mg/3 Ml (Albuterol/Ipratropium) 3 Ml Ampul.neb 3 Ml NEB PRN QID PRN Furosemide 40 Mg Tablet 1 Tab PO DAILY Flovent 100MCG Diskus (Fluticasone Propionate) 100 Mcg Disk.w.dev 50 Mcg IH DAILY Colcrys (Colchicine) 0.6 Mg Tablet 1 Tab PO PRN Clopidogrel (Clopidogrel Bisulfate) 75 Mg Tablet 1 Tab PO DAILY Citalopram Hbr (Citalopram Hydrobromide) 20 Mg Tablet 1 Tab PO DAILY Azelastine Hcl 137 Mcg/0.137 Ml Cushing.pump 2 Cushing NS BID Atorvastatin Calcium 10 Mg Tablet 1 Tab PO HS Aspirin 81 Mg Tab.chew 1 Tab PO DAILY Letairis (Ambrisentan) 10 Mg Tablet 10 Mg PO DAILY Ventolin Hfa Inhaler (Albuterol Sulfate) 18 Gm Hfa.aer.ad 2 Puff INH QID Allopurinol 100 Mg Tablet 1 Tab PO DAILY Potassium Chloride 20 Meq Tablet.er 20 Meq PO DAILY Metformin Hcl Er (Metformin Hcl) 500 Mg Tab.er.24h 500 Mg PO DAILYWBKFT Gabapentin 300 Mg Capsule 600 Mg PO HS Gabapentin 600 Mg Tablet 300 Mg PO DAILY PRN Vitals/I & O Vital Sign - Last 24 Hours 01/05/19 01/05/19 01/05/19 01/05/19 15:00 15:13 16:00 16:00 Temp 98.2 98.2 Pulse 93 92 Resp 21 27 B/P (MAP) 106/58 (74) 95/47 (63) Pulse Ox 92 93 91 O2 Delivery BiPAP/CPAP BiPAP/CPAP Bi-pap BiPAP/CPAP 01/05/19 01/05/19 01/05/19 01/05/19 17:00 17:26 18:00 19:00 Pulse 98 97 94 Resp 28 28 22 B/P (MAP) 96/46 (63) 104/53 (70) 110/54 (72) Pulse Ox 93 91 83 93 O2 Delivery BiPAP/CPAP BiPAP/CPAP Nasal Cannula Nasal Cannula O2 Flow Rate 15.0 01/05/19 01/05/19 01/05/19 01/05/19 19:47 20:00 20:00 20:00 Temp 98.1 98.1 Pulse 92 Resp 24 B/P (MAP) 104/55 (71) Pulse Ox 93 94 O2 Delivery BiPAP/CPAP Nasal Cannula Bi-pap O2 Flow Rate 15.0 15.0 01/05/19 01/05/19 01/05/19 01/05/19 21:00 21:11 22:00 23:00 Pulse 92 89 80 86 Resp 22 25 24 B/P (MAP) 103/57 (72) 110/64 (79) 112/60 (77) Pulse Ox 93 91 90 O2 Delivery Nasal Cannula Nasal Cannula Nasal Cannula 01/06/19 01/06/19 01/06/19 01/06/19 00:00 00:00 00:00 00:07 Temp 97.2 97.2 Pulse 90 Resp 24 B/P (MAP) 122/62 (82) Pulse Ox 85 91 O2 Delivery Bi-pap Nasal Cannula BiPAP/CPAP O2 Flow Rate 15.0 15.0 01/06/19 01/06/19 01/06/19 01/06/19 01:00 02:00 02:18 03:00 Pulse 88 80 82 Resp 24 24 24 B/P (MAP) 113/57 (75) 109/56 (73) 107/55 (72) Pulse Ox 90 87 91 88 O2 Delivery Nasal Cannula Nasal Cannula BiPAP/CPAP Nasal Cannula 01/06/19 01/06/19 01/06/19 01/06/19 04:00 04:00 04:00 05:00 Temp 98.0 98.0 Pulse 74 74 Resp 18 18 B/P (MAP) 109/56 (73) 104/53 (70) Pulse Ox 87 87 O2 Delivery Bi-pap Nasal Cannula Nasal Cannula O2 Flow Rate 15.0 15.0 01/06/19 01/06/19 01/06/19 01/06/19 05:46 06:00 07:00 07:17 Pulse 74 66 Resp 19 16 B/P (MAP) 101/50 (67) 94/61 (72) Pulse Ox 89 87 87 93 O2 Delivery BiPAP/CPAP Nasal Cannula BiPAP/CPAP BiPAP/CPAP 01/06/19 01/06/19 01/06/19 01/06/19 08:00 08:00 08:30 08:31 Temp 98.2 98.2 Pulse 78 74 Resp 20 B/P (MAP) 90/48 (62) 90/48 101/50 Pulse Ox 84 O2 Delivery Nasal Cannula Bi-pap O2 Flow Rate 15.0 15.0 01/06/19 01/06/19 01/06/19 01/06/19 09:00 10:54 12:00 13:09 Pulse 88 89 95 Resp 22 24 B/P (MAP) 103/56 (72) 97/44 (61) 106/42 Pulse Ox 81 87 81 O2 Delivery Nasal Cannula Nasal Cannula Nasal Cannula O2 Flow Rate 15.0 15.0 15.0 Intake and Output 01/05/19 01/05/19 01/06/19 15:00 23:00 07:00 Intake Total 500 ml 300 ml 360 ml Output Total 350 ml 450 ml 350 ml Balance 150 ml -150 ml 10 ml SUYAPA DANIELS MD Jan 06, 2019 14:33
[2019-01-06] MEDS: GABAPENTIN 300 MG CAPSULE. PO SCH (20:57)
[2019-01-06] MEDS: MONTELUKAST SODIUM 10 MG TABLET. PO SCH (20:58)
[2019-01-06] MEDS: ATORVASTATIN CALCIUM 10 MG TABLET. PO SCH (21:02)
[2019-01-07 03:45] VITALS: BP 125/55
[2019-01-07] MEDS: methylPREDNISolone SOD SUCC PF 40 MG/ML VIAL. IV SCH (06:11)
[2019-01-07] MEDS: PANTOPRAZOLE 40 MG TABLET.DR. PO SCH (06:11)
[2019-01-07 07:00] VITALS: BP 117/54
[2019-01-07] MEDS: BUDESONIDE 0.5 MG/2 ML NEBU. NEB SCH (07:26)
[2019-01-07] MEDS: ALBUTEROL SULFATE 2.5 MG/3 ML NEBU. NEB SCH ×2 (07:26→11:37)
[2019-01-07] MEDS: INSULIN LISPRO 300 UNITS/3 ML VIAL. SQ SCH ×2 (08:00→12:40)
[2019-01-07] MEDS: ASPIRIN CHEWABLE 81 MG TABLET. PO SCH (09:33)
[2019-01-07] MEDS: metFORMIN XR 500 MG TAB.ER.24H PO SCH (09:33)
[2019-01-07] MEDS: LACTOBACILLUS RHAMNOSUS GG 1 CAPSULE. PO SCH (09:33)
[2019-01-07] MEDS: CLOPIDOGREL BISULFATE 75 MG TABLET PO SCH (09:34)
[2019-01-07] MEDS: CITALOPRAM 20 MG TABLET. PO SCH (09:34)
[2019-01-07] MEDS: FUROSEMIDE 40 MG TABLET. PO SCH (09:34)
[2019-01-07] MEDS: POTASSIUM CHLORIDE 20 MEQ TABLET.ER. PO SCH (09:35)
[2019-01-07] MEDS: OXYBUTYNIN CHLORIDE 5 MG TABLET PO SCH (09:35)
[2019-01-07] MEDS: METOPROLOL SUCC 24HR ER 25 MG TAB.ER.24H. PO SCH (09:36)
[2019-01-07] MEDS: ALLOPURINOL 100 MG TABLET. PO SCH (09:36)
[2019-01-07] MEDS: AZELASTINE NASAL SPRAY 30ML BOTTLE. NS SCH (09:49)
[2019-01-07] MEDS: AMBRISENTAN (LETAIRIS) 10 MG TABLET PO SCH (09:50)
[2019-01-07] MEDS: SILDENAFIL CITRATE 20 MG TABLET. PO SCH (09:52)
[2019-01-07] MEDS ORDERED: PRED-220 PO (09:59)
--- NOTE | 2019-01-07 10:01 | SNU/HH DC ---
DISCHARGE WITH HOME HEALTH DISCHARGE INFORMATION: Discharge Date: Jan 07, 2019 Final Diagnosis: Problems Medical Problems: (1) Acute respiratory failure Status: Acute (2) Chronic respiratory failure Status: Chronic (3) Hypoxemia Status: Chronic (4) Pulmonary hypertension Status: Acute CODE STATUS: Code Status: Other (partial, DNI) HOME HEALTH: Face to Face: I certify this patient is under my care and that I had a face to face encounter that meets the physician face to face encounter requirements with this patient on 01/07 Medical Complications: CHF, COPD Mcc For: Assess Cardiopulm Status, Assess/Skilled Observatio, Medication Management RN For Eval/Treatment: Yes Physical Therapy For: Evalulation/Treatment Occupational Therapy For: Evaluation/Treatment Pt Meets Homebound Status: Unsteady balance w/ amb,, Other: (marked chronic hypoxia) POST DISCHARGE ORDERS: DIET AFTER DISCHARGE: Cardiac FOLLOW-UP: Follow up with: Dr. Naranjo Jan 16, primary care sooner TREATMENT/EQUIPMENT ORDERS: Adaptive Equipment Issued: None Discharge Respiratory Equipmen: Oxygen (15 liters) CERTIFICATION STATEMENT: Certification Statement: Certification Statement: Based on the above finding, I certify that this patient is confined to the home and needs intermittent prison care, physical therapy and/or speech therapy, or continues to need occupational therapy.~ This patient is under my care, and I have initiated the establishment of the plan of care.~ This patient will be followed by myself or a community physician who will periodically review the plan of care. Home Meds Active Scripts Prednisone (PREDNISONE ) 10 Mg Tablet, 10 MG PO UD for bronchitis, #36 TAB 0 Refills Take 4 tablets by mouth daily for 4 days, then take 3 tablets by mouth daily for 4 days, then take 2 tablets by mouth daily for 4 days, then resume one tablet per day Prov:MELLISSA BIGGS MD 01/07/19 Reported Medications Prednisone (PREDNISONE ) 10 Mg Tablet, 10 MG PO DAILY for COPD, TAB 0 Refills 01/05/19 Sildenafil Citrate (SILDENAFIL) 20 Mg Tablet, 20 MG PO TID for PULMONARY HYPERTENSION, TAB 01/05/19 Pantoprazole Sodium (Pantoprazole Sodium) 40 Mg Tablet.dr, 40 MG PO DAILY for GERD, TAB.SR 01/05/19 Oxybutynin Chloride (OXYBUTYNIN CHLORIDE) 5 Mg Tablet, 5 MG PO TID for urine retention, TAB 01/05/19 Sodium Chloride/Sodium Bicarb (NEILMED SINUS RINSE KIT REFILL) 1 Each Packet, 1 EACH NS PRN Q4-6HRS PRN for ALLERGIES, PKT 01/05/19 Montelukast Sodium (MONTELUKAST SODIUM CHEW.TABLET) 5 Mg Tab.chew, 10 MG PO HS for FOR ASTHMA, #30 TAB.CHEW 0 Refills 01/05/19 Metoprolol Succinate (METOPROLOL SUCCINATE ( XL )) 25 Mg Tab.er.24h, 1 TAB PO DAILY for HTN, #30 TAB 5 Refills 01/05/19 Lactobac No.41/Bifidobact No.7 (Probiotic-10 3 Billion Cell Cp) 70 Mg Capsule, 70 MG PO DAILY for gut health, CAP 01/05/19 Ipratropium/Albuterol Sulfate (DUONEB 0.5-3(2.5) MG/3 ML) 3 Ml Ampul.neb, 3 ML NEB PRN QID PRN for SHORTNESS OF BREATH, EACH 01/05/19 Furosemide (FUROSEMIDE) 40 Mg Tablet, 1 TAB PO DAILY for fluid retention, #30 TAB 5 Refills 01/05/19 Fluticasone Propionate (FLOVENT 100MCG DISKUS) 100 Mcg Disk.w.dev, 50 MCG IH DAILY for allergies, INHALER 01/05/19 Colchicine (COLCRYS) 0.6 Mg Tablet, 1 TAB PO PRN for Gout, #30 TAB 3 Refills 01/05/19 Clopidogrel Bisulfate (CLOPIDOGREL) 75 Mg Tablet, 1 TAB PO DAILY for heart stents, #90 TAB 1 Refill 01/05/19 Citalopram Hydrobromide (CITALOPRAM HBR) 20 Mg Tablet, 1 TAB PO DAILY for mood, #30 TAB 5 Refills 01/05/19 Azelastine Hcl (AZELASTINE HCL) 137 Mcg/0.137 Ml Wanda.pump, 2 SPRAY NS BID for Allergies, #90 ML 3 Refills 01/05/19 Atorvastatin Calcium (ATORVASTATIN CALCIUM) 10 Mg Tablet, 1 TAB PO HS for HLD, #30 TAB 5 Refills 01/05/19 Aspirin (ASPIRIN) 81 Mg Tab.chew, 1 TAB PO DAILY for Heart Health, #30 TAB 3 Refills 01/05/19 Ambrisentan (LETAIRIS) 10 Mg Tablet, 10 MG PO DAILY for Pulmonary HTN, TAB 01/05/19 Albuterol Sulfate (VENTOLIN HFA INHALER) 18 Gm Hfa.aer.ad, 2 PUFF INH QID for FOR ASTHMA, INHALER 0 Refills 01/05/19 Allopurinol (ALLOPURINOL) 100 Mg Tablet, 1 TAB PO DAILY for gout, #30 TAB 5 Refills 01/05/19 Potassium Chloride (POTASSIUM CHLORIDE) 20 Meq Tablet.er, 20 MEQ PO DAILY for supplement, TAB.SR 01/05/19 Metformin Hcl (METFORMIN HCL ER) 500 Mg Tab.er.24h, 500 MG PO DAILYWBKFT for ANTI-DIABETIC, TAB 0 Refills 01/05/19 Gabapentin (GABAPENTIN) 300 Mg Capsule, 600 MG PO HS for NEUROGENIC PAIN, CAP 01/05/19 Gabapentin (GABAPENTIN) 600 Mg Tablet, 300 MG PO DAILY PRN for Neuropathy, TAB 01/05/19 MELLISSA BIGGS MD Jan 07, 2019 10:01
--- NOTE | 2019-01-07 10:06 | PDOC3 ---
Discharge Summary Visit Information Date of Admission: Jan 04, 2019 Date of Discharge: Jan 07, 2019 Admitting Diagnosis: resp failrue Final Diagnosis acute on chronic hypoxic respiratory failure cor pulmonale, acute systolic CHF exacerbation treated for primary pulmonary hypertension COPD, w/ bronchitis SIRS, no organ dysfunction weakness, debility Problems Medical Problems: (1) Acute respiratory failure Status: Acute (2) Chronic respiratory failure Status: Chronic (3) Hypoxemia Status: Chronic (4) Pulmonary hypertension Status: Acute Brief Hospital Course Allergies Allergies Coded Allergies Type Severity Reaction Last Updated Verified Penicillins Allergy Intermediate 01/05/19 Yes Sulfa (Sulfonamide Antibiotics) Allergy Intermediate 01/05/19 Yes adhesive tape Allergy Intermediate Rash 01/05/19 Yes iodine Allergy Intermediate 01/05/19 Yes Vital Signs Vital Signs Date Time Temp Pulse Resp B/P (MAP) Pulse Ox O2 Delivery O2 Flow Rate FiO2 01/07/19 09:52 82 117/54 01/07/19 07:30 89 High Flow Nasal Cannula 15.0 01/07/19 07:00 97.6 20 97.6 Lab Results Laboratory Tests Test 01/05/19 12:36 01/05/19 14:10 01/05/19 17:47 01/06/19 07:20 Glucose (Fingerstick) 223 mg/dL (70-99) 147 mg/dL (70-99) Troponin I Quantitative 0.026 ng/mL (0.000-0.055) Triglycerides Level 93 mg/dL (0-150) Cholesterol Level 129 mg/dL (0-200) LDL Cholesterol, Calculated 78 mg/dL (0-100) VLDL Cholesterol, Calculated 19 mg/dL (0-40) Non-HDL Cholesterol Calculated 97 mg/dL (0-129) HDL Cholesterol 32 mg/dL (40-60) Cholesterol/HDL Ratio 4.0 O2 Saturation 91 % (92-99) Arterial Blood pH 7.42 (7.35-7.45) Arterial Blood pCO2 at Patient Temp 35 mmHg (35-46) Arterial Blood pO2 at Patient Temp 61 mmHg (65-108) Arterial Blood HCO3 22 mmol/L (21-28) Arterial Blood Base Excess -2 mmol/L (-3-3) FiO2 65% Test 01/06/19 08:38 01/06/19 11:44 01/06/19 17:37 01/06/19 20:55 Glucose (Fingerstick) 144 mg/dL (70-99) 169 mg/dL (70-99) 173 mg/dL (70-99) 152 mg/dL (70-99) Test 01/07/19 07:39 Glucose (Fingerstick) 125 mg/dL (70-99) Laboratory Tests Test 01/06/19 11:44 01/06/19 17:37 01/06/19 20:55 01/07/19 07:39 Glucose (Fingerstick) 169 mg/dL (70-99) 173 mg/dL (70-99) 152 mg/dL (70-99) 125 mg/dL (70-99) Brief Hospital Course Ms. Ledesma is a 73 old admit for acute on chronic resp failure. She has underlying COPD and chronic hypoxic respiratory failure, on 15 liters of oxygen for the last 1 year. 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 Naranjo. The patient states she also had a right heart cath about 3 weeks ago and a transesophageal echocardiogram . She had ASD/PFO closure. here, on BIPAP, pH of 7.43, pCO2 of 31 and a pO2 of 49 req. max support, Admit to ICU, BIPAP, stress steroids, taperd over 2 days, then back to her 15 liter 02 baseline, Dr. Naranjo was contacted, and wanted us to maintain her a little dry for CHF management, taper steroids and see her in clinic jan 16 Discharge Information Condition at Discharge: Improved Follow Up: Weeks Disposition/Orders: D/C to Home w/ HH Scheduled Albuterol Sulfate (Ventolin Hfa Inhaler) 18 Gm Hfa.aer.ad, 2 PUFF INH QID for FOR ASTHMA, Ref 0 (Reported) Entered as Reported by: THELMA RUTH RN on 01/05/19231 Last Taken: UNKNOWN on Unknown Date & Time Last Action: Converted on 01/05 by MELLISSA BIGGS Allopurinol (Allopurinol) 100 Mg Tablet, 1 TAB PO DAILY for gout, #30 Ref 5 (Reported) Entered as Reported by: THELMA RUTH RN on 01/05/19231 Last Taken: Unknown Dose on 01/04/19 0800 Last Action: Continued on 01/05/19903 by MELLISSA BIGGS Ambrisentan (Letairis) 10 Mg Tablet, 10 MG PO DAILY for Pulmonary HTN, (Reported) Entered as Reported by: THELMA RUTH RN on 01/05/19231 Last Taken: Unknown Dose on 01/04/19799 Last Action: Converted on 01/05/19903 by MELLISSA BIGGS Aspirin (Aspirin) 81 Mg Tab.chew, 1 TAB PO DAILY for Heart Health, #30 Ref 3 (Reported) Entered as Reported by: THELMA RUTH RN on 01/05/19231 Last Taken: Unknown Dose on 01/04/19799 Last Action: Continued on 01/05/19903 by MELLISSA BIGGS Atorvastatin Calcium (Atorvastatin Calcium) 10 Mg Tablet, 1 TAB PO HS for HLD, #30 Ref 5 (Reported) Entered as Reported by: THELMA RUTH RN on 01/05/19231 Last Taken: UNKNOWN on Unknown Date & Time Last Action: Continued on 01/05/19903 by MELLISSA BIGGS Azelastine Hcl (Azelastine Hcl) 137 Mcg/0.137 Ml [place].pump, 2 SPRAY NS BID for Allergies, #90 Ref 3 (Reported) Entered as Reported by: THELMA RUTH RN on 01/05/19231 Last Taken: UNKNOWN on Unknown Date & Time Last Action: Continued on 01/05/19903 by MELLISSA BIGGS Citalopram Hydrobromide (Citalopram Hbr) 20 Mg Tablet, 1 TAB PO DAILY for mood, #30 Ref 5 (Reported) Entered as Reported by: THELMA RUTH RN on 01/05/19231 Last Taken: Unknown Dose on 01/04/19799 Last Action: Continued on 01/05/19903 by MELLISSA BIGGS Clopidogrel Bisulfate (Clopidogrel) 75 Mg Tablet, 1 TAB PO DAILY for heart stents, #90 Ref 1 (Reported) Entered as Reported by: THELMA RUTH RN on 01/05/19231 Last Taken: UNKNOWN on Unknown Date & Time Last Action: Continued on 01/05/19903 by MELLISSA BIGGS Colchicine (Colcrys) 0.6 Mg Tablet, 1 TAB PO PRN for Gout, #30 Ref 3 (Reported) Entered as Reported by: THELMA RUTH RN on 01/05/19231 Last Taken: UNKNOWN on Unknown Date & Time Last Action: New Order on 231 by THELMA RUTH RN Fluticasone Propionate (Flovent 100MCG Diskus) 100 Mcg Disk.w.dev, 50 MCG IH DAILY for allergies, (Reported) Entered as Reported by: THELMA RUTH RN on 01/05/19231 Last Taken: UNKNOWN on Unknown Date & Time Last Action: Converted on 01/05/19903 by MELLISSA BIGGS Furosemide (Furosemide) 40 Mg Tablet, 1 TAB PO DAILY for fluid retention, #30 Ref 5 (Reported) Entered as Reported by: THELMA RUTH RN on 01/05/19231 Last Taken: Unknown Dose on 01/04/19799 Last Action: Continued on 01/05/19903 by MELLISSA BIGGS Gabapentin (Gabapentin) 300 Mg Capsule, 600 MG PO HS for NEUROGENIC PAIN, (Reported) Entered as Reported by: THELMA RUTH RN on 01/05/19231 Last Taken: UNKNOWN on Unknown Date & Time Last Action: Continued on 01/05/19903 by MELLISSA BIGGS Lactobac No.41/Bifidobact No.7 (Probiotic-10 3 Billion Cell Cp) 70 Mg Capsule, 70 MG PO DAILY for gut health, (Reported) Entered as Reported by: THELMA RUTH RN on 01/05/19231 Last Taken: Unknown Dose on 01/04/19799 Last Action: Converted on 01/05/19903 by MELLISSA BIGGS Metformin Hcl (Metformin Hcl Er) 500 Mg Tab.er.24h, 500 MG PO DAILYWBKFT for ANTI-DIABETIC, Ref 0 (Reported) Entered as Reported by: THELMA RUTH RN on 01/05/19231 Last Taken: Unknown Dose on 01/04/19799 Last Action: Continued on 01/05/19903 by MELLISSA BIGGS Metoprolol Succinate (Metoprolol Succinate ( Xl )) 25 Mg Tab.er.24h, 1 TAB PO DAILY for HTN, #30 Ref 5 (Reported) Entered as Reported by: THELMA RUTH RN on 01/05/19231 Last Taken: Unknown Dose on 01/04/19799 Last Action: Continued on 01/05/19903 by MELLISSA BIGGS Montelukast Sodium (Montelukast Sodium Chew.tablet) 5 Mg Tab.chew, 10 MG PO HS for FOR ASTHMA, #30 Ref 0 (Reported) Entered as Reported by: THELMA RUTH RN on 01/05/19231 Last Taken: UNKNOWN on Unknown Date & Time Last Action: Converted on 01/05/19903 by MELLISSA BIGGS Oxybutynin Chloride (Oxybutynin Chloride) 5 Mg Tablet, 5 MG PO TID for urine retention, (Reported) Entered as Reported by: THELMA RUTH RN on 01/05/19231 Last Taken: UNKNOWN on Unknown Date & Time Last Action: Continued on 01/05/19903 by MELLISSA BIGGS Pantoprazole Sodium (Pantoprazole Sodium) 40 Mg Tablet.dr, 40 MG PO DAILY for GERD, (Reported) Entered as Reported by: THELMA RUTH RN on 01/05/19231 Last Taken: Unknown Dose on 01/04/19799 Last Action: Continued on 01/05/19903 by MELLISSA BIGGS Potassium Chloride (Potassium Chloride) 20 Meq Tablet.er, 20 MEQ PO DAILY for supplement, (Reported) Entered as Reported by: THELMA RUTH RN on 01/05/19231 Last Taken: Unknown Dose on 01/04/19799 Last Action: Converted on 01/05/19903 by MELLISSA BIGGS Prednisone (Prednisone ) 10 Mg Tablet, 10 MG PO DAILY for COPD, Ref 0 (Reported) Entered as Reported by: THELMA RUTH RN on 01/05/19231 Last Taken: UNKNOWN on Unknown Date & Time Last Action: Continued on 01/05/19903 by MELLISSA BIGGS Prednisone (Prednisone ) 10 Mg Tablet, 10 MG PO UD for bronchitis, #36 Ref 0 Take 4 tablets by mouth daily for 4 days, then take 3 tablets by mouth daily for 4 days, then take 2 tablets by mouth daily for 4 days, then resume one tablet per day Prescribed by: MELLISSA BIGGS on 01/07/19958 Sildenafil Citrate (Sildenafil) 20 Mg Tablet, 20 MG PO TID for PULMONARY HYPERTENSION, (Reported) Entered as Reported by: THELMA RUTH RN on 01/05/19231 Last Taken: Unknown Dose on 01/04/19799 Last Action: Continued on 01/05/19903 by MELLISSA BIGGS Scheduled PRN Gabapentin (Gabapentin) 600 Mg Tablet, 300 MG PO DAILY PRN for Neuropathy, (Reported) Entered as Reported by: THELMA RUTH RN on 01/05/19231 Last Taken: Unknown Dose on 01/04/19 0800 Last Action: Converted on 01/05/19903 by MELLISSA BIGGS Ipratropium/Albuterol Sulfate (Duoneb 0.5-3(2.5) Mg/3 Ml) 3 Ml Ampul.neb, 3 ML NEB PRN QID PRN for SHORTNESS OF BREATH, (Reported) Entered as Reported by: THELMA RUTH RN on 01/05/19231 Last Taken: UNKNOWN on Unknown Date & Time Last Action: Continued on 01/05/19903 by MELLISSA BIGGS Sodium Chloride/Sodium Bicarb (Neilmed Sinus Rinse Kit Refill) 1 Each Packet, 1 EACH NS PRN Q4-6HRS PRN for ALLERGIES, (Reported) Entered as Reported by: THELMA RUTH RN on 01/05/19231 Last Taken: UNKNOWN on Unknown Date & Time Last Action: Converted on 01/05/19903 by MELLISSA BIGGS Patient Instructions Patient Instructions > 30 min face to face discussion start home health f/u MELLISSA Hansen MD Jan 07, 2019 10:06
--- NOTE | 2019-01-07 10:12 | PDOC ---
PULMONARY PROGRESS NOTES Subjective pt. is upt o chair on 15 liters N/C; which is her baseline. conts. with BIPAP at 65% at noc, also baseline reports she is feeling well and ready to D/C home Vitals Vital Signs Date Time Temp Pulse Resp B/P (MAP) Pulse Ox O2 Delivery O2 Flow Rate FiO2 01/07/19 09:52 82 117/54 01/07/19 07:30 89 High Flow Nasal Cannula 15.0 01/07/19 07:00 97.6 20 97.6 ROS: No Chest Pain, No Increase Cough General: Alert, Oriented X4, No acute distress Lungs: Crackles (bases) Cardiovascular: S1 Abdomen: Soft Neuro Exam: Alert Extremities: No Edema Skin: Warm Labs Laboratory Tests Test 01/05/19 12:36 01/05/19 14:10 01/05/19 17:47 01/06/19 07:20 Glucose (Fingerstick) 223 mg/dL (70-99) 147 mg/dL (70-99) Troponin I Quantitative 0.026 ng/mL (0.000-0.055) Triglycerides Level 93 mg/dL (0-150) Cholesterol Level 129 mg/dL (0-200) LDL Cholesterol, Calculated 78 mg/dL (0-100) VLDL Cholesterol, Calculated 19 mg/dL (0-40) Non-HDL Cholesterol Calculated 97 mg/dL (0-129) HDL Cholesterol 32 mg/dL (40-60) Cholesterol/HDL Ratio 4.0 O2 Saturation 91 % (92-99) Arterial Blood pH 7.42 (7.35-7.45) Arterial Blood pCO2 at Patient Temp 35 mmHg (35-46) Arterial Blood pO2 at Patient Temp 61 mmHg (65-108) Arterial Blood HCO3 22 mmol/L (21-28) Arterial Blood Base Excess -2 mmol/L (-3-3) FiO2 65% Test 01/06/19 08:38 01/06/19 11:44 01/06/19 17:37 01/06/19 20:55 Glucose (Fingerstick) 144 mg/dL (70-99) 169 mg/dL (70-99) 173 mg/dL (70-99) 152 mg/dL (70-99) Test 01/07/19 07:39 Glucose (Fingerstick) 125 mg/dL (70-99) Laboratory Tests Test 01/06/19 11:44 01/06/19 17:37 01/06/19 20:55 01/07/19 07:39 Glucose (Fingerstick) 169 mg/dL (70-99) 173 mg/dL (70-99) 152 mg/dL (70-99) 125 mg/dL (70-99) Medications Active Scripts Medications Dose Route/Sig Max Daily Dose Days Date Category Prednisone (Prednisone) 10 Mg Tablet 10 Mg PO DAILY 01/05/19 Reported Sildenafil (Sildenafil Citrate) 20 Mg Tablet 20 Mg PO TID 01/05/19 Reported Pantoprazole Sodium 40 Mg Tablet.dr 40 Mg PO DAILY 01/05/19 Reported Oxybutynin Chloride 5 Mg Tablet 5 Mg PO TID 01/05/19 Reported Neilmed Sinus Rinse Kit Refill (Sodium Chloride/Sodium Bicarb) 1 Each Packet 1 Each NS PRN Q4-6HRS PRN 01/05/19 Reported Montelukast Sodium Chew.tablet (Montelukast Sodium) 5 Mg Tab.chew 10 Mg PO HS 01/05/19 Reported Metoprolol Succinate ( Xl ) (Metoprolol Succinate) 25 Mg Tab.er.24h 1 Tab PO DAILY 01/05/19 Reported Probiotic-10 3 Billion Cell Cp (Lactobac No.41/Bifidobact No.7) 70 Mg Capsule 70 Mg PO DAILY 01/05/19 Reported Duoneb 0.5-3(2.5) Mg/3 Ml (Albuterol/Ipratropium) 3 Ml Ampul.neb 3 Ml NEB PRN QID PRN 01/05/19 Reported Furosemide 40 Mg Tablet 1 Tab PO DAILY 01/05/19 Reported Flovent 100MCG Diskus (Fluticasone Propionate) 100 Mcg Disk.w.dev 50 Mcg IH DAILY 01/05/19 Reported Colcrys (Colchicine) 0.6 Mg Tablet 1 Tab PO PRN 01/05/19 Reported Clopidogrel (Clopidogrel Bisulfate) 75 Mg Tablet 1 Tab PO DAILY 01/05/19 Reported Citalopram Hbr (Citalopram Hydrobromide) 20 Mg Tablet 1 Tab PO DAILY 01/05/19 Reported Azelastine Hcl 137 Mcg/0.137 Ml [place].pump 2 [place] NS BID 01/05/19 Reported Atorvastatin Calcium 10 Mg Tablet 1 Tab PO HS 01/05/19 Reported Aspirin 81 Mg Tab.chew 1 Tab PO DAILY 01/05/19 Reported Letairis (Ambrisentan) 10 Mg Tablet 10 Mg PO DAILY 01/05/19 Reported Ventolin Hfa Inhaler (Albuterol Sulfate) 18 Gm Hfa.aer.ad 2 Puff INH QID 01/05/19 Reported Allopurinol 100 Mg Tablet 1 Tab PO DAILY 01/05/19 Reported Potassium Chloride 20 Meq Tablet.er 20 Meq PO DAILY 01/05/19 Reported Metformin Hcl Er (Metformin Hcl) 500 Mg Tab.er.24h 500 Mg PO DAILYWBKFT 01/05/19 Reported Gabapentin 300 Mg Capsule 600 Mg PO HS 01/05/19 Reported Gabapentin 600 Mg Tablet 300 Mg PO DAILY PRN 01/05/19 Reported Impression . 1. Acute on chronic hypoxic respiratory failure in a patient who has severe pulmonary hypertension and being followed at the Pul[facility]pert[facility] at [facility] by Dr. Naranjo. She has been on Revatio and Letairis. The patient is also on 15 liters of oxygen on a 24-hour basis. Etiology of her Pulmonary HTN appear to be from combination of diastolic HF and severe Right to left shunt . She has PFO closure in August 2018 She also has ASD closure as well. During recent right heart cath and CHARO , she was found to have small Rt to Lt shunt from right upper pulmonary vein. She has no PE, no ILD. she does have COPD and BOAZ. Does not appear to have any exacerbation of chronic obstructive pulmonary disease.--- back at baseline 2. Underlying chronic obstructive pulmonary disease.-- stable 3. Severe pulmonary hypertension.--stable/ongoing 4. atrial septal defect / PFO closure Plan . 1. cont. N/C o2 at 15 liters, cont. bipap at noc 2. Mild diuresis as long as blood pressure can tolerate. 3. Continue Revatio and Letairis. 4. Lovenox for DVT prophylaxis. 5. Bronchodilators. 6. Supportive care. 7. Discussed Advanced Directives and she is a DNR 8. Cardiology follwoinf mariya. recs 9. Ok to D/C home from our standpoint D/W DIANE Malloy MD Jan 07, 2019 10:12
[2019-01-07 11:00] VITALS: BP 142/56
[2019-01-07] MEDS: ENOXAPARIN 40 MG/0.4 ML SYRINGE. SQ SCH (12:35)
--- NOTE | 2019-01-07 14:54 | NUR ---
Discharge Note: DUC MCELROY [address] Discharge instructions and discharge home medications reviewed with Patient and a copy given. All questions have been answered and understanding verbalized. The following instructions and handouts were given: diet, medication, SOA, follow up: patient says she has follow up appointments with her adolescent specialist, and cylinder devalver. She just saw her primary physician but will call him to see if he would like to see her again. Discontinued lines and drains: IV removed, no lines present on DC. Patient discharged to home. Left to son's car by wheelchair and switched to her home oxygen at car. Addendum: 01/07/19 at 1542 by DIEGO DOAN RN Patients home meds returned to her, dentures and hearing aids in use at DC. Patient and son will follow up with her doctors at [facility] about possible increase to lasix dose.
== END 2019-01-07 14:00 | disposition home health service (06) | DRG 291 ==
LOC: ER 22:11 → 1 WEST ICU 23:12 → 2 NORTH 01-06 17:49
PROVIDERS: ADMIT Internal Medicine; ATTEND Internal Medicine
PROC: 5A09357 Assistance with Respiratory Ventilation, Less than 24 Consecutive Hours, Continuous Positive Airway Pressure (ICD-10-PCS; principal; 2019-01-04)
PROC: 5A09357 Assistance with Respiratory Ventilation, Less than 24 Consecutive Hours, Continuous Positive Airway Pressure (ICD-10-PCS; 2019-01-05)
PROC: 5A09357 Assistance with Respiratory Ventilation, Less than 24 Consecutive Hours, Continuous Positive Airway Pressure (ICD-10-PCS; 2019-01-06)
PROC: 5A09357 Assistance with Respiratory Ventilation, Less than 24 Consecutive Hours, Continuous Positive Airway Pressure (ICD-10-PCS; 2019-01-07)
DX: I11.0 Hypertensive heart disease with heart failure (principal); J96.21 Acute and chronic respiratory failure with hypoxia; R65.10 Systemic inflammatory response syndrome (SIRS) of non-infectious origin without acute organ dysfunction; I50.43 Acute on chronic combined systolic (congestive) and diastolic (congestive) heart failure; E78.5 Hyperlipidemia, unspecified; G47.33 Obstructive sleep apnea (adult) (pediatric); I25.10 Atherosclerotic heart disease of native coronary artery without angina pectoris; J44.9 Chronic obstructive pulmonary disease, unspecified; K21.9 Gastro-esophageal reflux disease without esophagitis; F32.9 Major depressive disorder, single episode, unspecified; E11.42 Type 2 diabetes mellitus with diabetic polyneuropathy; M19.90 Unspecified osteoarthritis, unspecified site; Z66 Do not resuscitate; Z82.49 Family history of ischemic heart disease and other diseases of the circulatory system; Z85.3 Personal history of malignant neoplasm of breast; Z87.74 Personal history of (corrected) congenital malformations of heart and circulatory system; Z87.891 Personal history of nicotine dependence; Z90.710 Acquired absence of both cervix and uterus; Z91.041 Radiographic dye allergy status; Z95.5 Presence of coronary angioplasty implant and graft; Z98.82 Breast implant status; Z90.49 Acquired absence of other specified parts of digestive tract; Z98.51 Tubal ligation status
CPT/HCPCS: 36415; 36600; 71045; 80053; 80061; 82805; 82962; 83880; 84484; 85025; 93005; 93308; 94640; 94644; 94660; 94760; 96374; 96375; J1650; J1815; J1940; J2920; J2930; J7613; J7620; J7626; 97530; 99285-25; G0378

== ENCOUNTER 2019-01-24 15:25 | Inpatient (IN) | payer MEDICARE ==
[~2019-01-24] VITALS: Ht 160 cm; Wt 81.4 kg
[~2019-01-24 15:25] MED LIST: ALLO100T PO; AMBR10TA PO; ASPI-630 PO; ATOR10TA60 PO; AZEL137S3 NS; CITA20TA6 PO; CLOP75TA PO; COLC0.6T34 PO; FLUT100D IH; FURO40TA4 PO; GABA300C18 PO; GABA600T7 PO; IPRA3AMP29 NEB; LACT70CA PO; METF500T11 PO; METO-239 PO; MONT5TAB9 PO; OXYB5TAB10 PO; PANT40TA6 PO; POTA20TA82 PO; PRED-220 PO; SILD20TA2 PO; SODI1PAC NS; VENTOLIN HFA18 GM INH
[2019-01-24] MEDS ORDERED: methylPREDNISolone SOD SUCC PF 125 MG/2 ML VIAL. IV ONE (15:45)
[2019-01-24] MEDS ORDERED: IPRATRPIUM/ALBUTEROL 0.5/2.5MG 3 ML NEBU. NEB ONE (15:45)
[2019-01-24] MEDS ORDERED: AZITHRMYCN 500MG IVPB FOR OMNI 250 ML IV ONE (15:45)
--- NOTE | 2019-01-24 15:57 | PHYS DOC ---
Past Medical History Past Medical History: COPD, [place], Pneumonia Additional Past Medical Histor: pulmonary htn, EMPHYSEMA Past Surgical History: Appendectomy, Cholecystectomy, Knee Replacement, Tonsillectomy Additional Past Surgical Histo: cataracts removed, bilat mastectomy Alcohol Use: None Drug Use: None Adult General Chief Complaint Chief Complaint: SHORTNESS OF BREATH HPI HPI Patient is a 73-year-old female, with a history of end-stage COPD, who presents to the emergency department for evaluation of increasing shortness of breath. She was hospitalized here earlier this month for an exacerbation of her COPD, and just finished her steroid taper yesterday. She has a history of recurrent episodes of trouble breathing after coming off steroids after being hospitalized for COPD exacerbations. She is on 15 L via nasal cannula high flow chronically. She denies any pain. She has had a nonproductive cough which is chronic and not increased compared to baseline. She has not had any chest pain. She has not had any significant orthopnea. She states that she has been having some problems with her BiPAP machine at home. There are no alleviating or exacerbating factors to her symptoms otherwise. Review of Systems Review of Systems Constitutional: Denies fever or chills [] Eyes: Denies change in visual acuity, redness, or eye pain [] HENT: Denies nasal congestion or sore throat [] Respiratory: No additional information not addressed in HPI [] Cardiovascular: No additional information not addressed in HPI [] GI: Denies abdominal pain, nausea, vomiting, bloody stools or diarrhea [] : Denies dysuria or hematuria [] Musculoskeletal: Denies back pain or joint pain [] Integument: Denies rash or skin lesions [] Neurologic: Denies headache, focal weakness or sensory changes [] Endocrine: Denies polyuria or polydipsia [] All other systems were reviewed and found to be within normal limits, except as documented in this note. Current Medications Current Medications Current Medications Medications (Trade) Dose Ordered Sig/Yessy Start Time Stop Time Status Last Admin Dose Admin Al Hydroxide/Mg Hydroxide (Mylanta Plus Xs) 30 ml 1X ONCE 01/24/19 16:45 01/24/19 16:46 DC 01/24/19 16:45 30 ML Albuterol/ Ipratropium (Duoneb) 3 ml 1X ONCE 01/24/19 15:45 01/24/19 15:46 DC 01/24/19 15:53 3 ML Azithromycin 250 ml @ 250 mls/hr 1X ONCE 01/24/19 15:45 01/24/19 16:44 DC 01/24/19 16:03 250 MLS/HR Ceftriaxone Sodium (Rocephin) 1 gm 1X ONCE 01/24/19 16:15 01/24/19 16:16 DC 01/24/19 16:45 1 GM Methylprednisolone Sodium Succinate (SOLU-Medrol 125MG VIAL) 125 mg 1X ONCE 01/24/19 15:45 01/24/19 15:46 DC 01/24/19 16:02 125 MG Allergies Allergies Allergies Coded Allergies Type Severity Reaction Last Updated Verified Penicillins Allergy Intermediate TOLERATED CEFDINIR 01/24/19 Yes Sulfa (Sulfonamide Antibiotics) Allergy Intermediate 01/05/19 Yes adhesive tape Allergy Intermediate Rash 01/05/19 Yes iodine Allergy Intermediate 01/05/19 Yes Physical Exam Physical Exam PHYSICAL EXAM: CONSTITUTIONAL: Well developed, well nourished HEAD: normocephalic, atraumatic EENT: PERRL, EOMI. Conjunctivae normal color, sclerae non-icteric; moist mucous membranes. NECK: Supple, non-tender; no meningismus. LUNGS: There are mild scattered rhonchi in the lung bases bilaterally, breathing is moderately labored and mildly diminished air movement. HEART: Regular rate and rhythm, no murmur CHEST: No deformity; non-tender ABDOMEN: The abdomen is soft, and non-tender, no masses or bruits. EXTREM: Normal ROM; no deformity, no calf tenderness. Normal pulses palpable in all extremities. There is no pedal edema. SKIN: No rash; no diaphoresis NEURO: Alert; normal speech and cognition; CN's grossly intact; strength grossly intact without focal deficit. BACK: No CVA TTP. Current Patient Data Vital Signs Vital Signs Date Time Temp Pulse Resp B/P (MAP) Pulse Ox O2 Delivery O2 Flow Rate FiO2 01/24/19 16:50 93 BiPAP/CPAP 01/24/19 15:27 99.7 129 30 171/87 (115) 15.0 99.7 Lab Values Laboratory Tests Test 01/24/19 15:57 01/24/19 16:00 01/24/19 16:40 White Blood Count 7.3 x10^3/uL (4.0-11.0) Red Blood Count 5.41 x10^6/uL (3.50-5.40) H Hemoglobin 16.0 g/dL (12.0-15.5) H Hematocrit 49.1 % (36.0-47.0) H Mean Corpuscular Volume 91 fL (79-100) Mean Corpuscular Hemoglobin 30 pg (25-35) Mean Corpuscular Hemoglobin Concent 33 g/dL (31-37) Red Cell Distribution Width 16.7 % (11.5-14.5) H Platelet Count 191 x10^3/uL (140-400) Neutrophils (%) (Auto) 76 % (31-73) H Lymphocytes (%) (Auto) 14 % (24-48) L Monocytes (%) (Auto) 6 % (0-9) Eosinophils (%) (Auto) 4 % (0-3) H Basophils (%) (Auto) 1 % (0-3) Neutrophils # (Auto) 5.5 x10^3/uL (1.8-7.7) Lymphocytes # (Auto) 1.0 x10^3/uL (1.0-4.8) Monocytes # (Auto) 0.4 x10^3/uL (0.0-1.1) Eosinophils # (Auto) 0.3 x10^3/uL (0.0-0.7) Basophils # (Auto) 0.1 x10^3/uL (0.0-0.2) Sodium Level 144 mmol/L (136-145) Potassium Level 4.2 mmol/L (3.5-5.1) Chloride Level 106 mmol/L (98-107) Carbon Dioxide Level 26 mmol/L (21-32) Anion Gap 12 (6-14) Blood Urea Nitrogen 21 mg/dL (7-20) H Creatinine 1.1 mg/dL (0.6-1.0) H Estimated GFR (Cockcroft-Gault) 49.0 BUN/Creatinine Ratio 19 (6-20) Glucose Level 118 mg/dL (70-99) H Lactic Acid Level 1.6 mmol/L (0.4-2.0) Calcium Level 8.8 mg/dL (8.5-10.1) Magnesium Level 1.9 mg/dL (1.8-2.4) Total Bilirubin 1.5 mg/dL (0.2-1.0) H Aspartate Amino Transferase (AST) 21 U/L (15-37) Alanine Aminotransferase (ALT) 19 U/L (14-59) Alkaline Phosphatase 88 U/L (46-116) Creatine Kinase 26 U/L (26-192) Creatine Kinase MB (Mass) 0.7 ng/mL (0.0-3.6) Creatine Kinase MB Relative Index 2.7 % (0-4) Troponin I Quantitative < 0.017 ng/mL (0.000-0.055) EE-Plg-W-Type Natriuretic Peptide 9775 pg/mL (0-124) H Total Protein 7.0 g/dL (6.4-8.2) Albumin 3.8 g/dL (3.4-5.0) Albumin/Globulin Ratio 1.2 (1.0-1.7) Influenza Type A Antigen Negative (NEGATIVE) Influenza Type B Antigen Negative (NEGATIVE) O2 Saturation 93 % (92-99) Arterial Blood pH 7.46 (7.35-7.45) H Arterial Blood pCO2 at Patient Temp 32 mmHg (35-46) L Arterial Blood pO2 at Patient Temp 67 mmHg (65-108) Arterial Blood HCO3 22 mmol/L (21-28) Arterial Blood Base Excess -1 mmol/L (-3-3) FiO2 100 Laboratory Tests 01/24/19 15:57 Laboratory Tests 01/24/19 15:57 EKG EKG [] Normal sinus rhythm at a rate of 114 beats for minute, left axis deviation, norm al intervals, nonspecific ST/T changes are present, slightly exacerbated compared to the patient's most recent EKG, although there is significant motion artifact present today. Radiology/Procedures Radiology/Procedures PROCEDURE: PORTABLE CHEST 1V EXAM: Chest, single view. HISTORY: Shortness of breath. COMPARISON: 01/04/2019. FINDINGS: A frontal view of the chest is obtained. There is increased left basilar opacity due to atelectasis or interstitial infiltrate. The superimposed on stable diffuse interstitial prominence. The heart is normal in size. There are implanted breast prostheses. There is no pneumothorax or pleural effusion. IMPRESSION: Suspected increased left lower lobe atelectasis or interstitial infiltrate superimposed on suspected chronic interstitial changes. [] Course & Med Decision Making Course & Med Decision Making Pertinent Labs and Imaging studies reviewed. (See chart for details) [] 5:15 PM: The patient's condition remains stable. I spoke with the hospitalist, who accepted the patient to the hospital for further evaluation and treatment. The patient is apparently followed at [facility]. Per her request I have attempted to contact her tobacco grower, but the office number provided by the family goes to the after hours number, both the on-call and transfer center will be contacted just discussed the case with the patient's tobacco grower as per patient request. Patient is more stable at this time but is still requiring 100% oxygen and BiPAP to maintain oxygen saturation above 90%. She is not stable for transport at this time. Dragon Disclaimer Dragon Disclaimer This electronic medical record was generated, in whole or in part, using a voice recognition dictation system. Departure Departure Impression: Primary Impression: Acute respiratory failure Additional Impressions: COPD (chronic obstructive pulmonary disease) Pneumonia Disposition: ADMITTED INPATIENT Admitting Physician: MARLYN Condition: STABLE Referrals: CASSANDRA SOTOMAYOR (PCP) Problem Qualifiers ROMINA PATEL MD Jan 24, 2019 15:57
--- NOTE | 2019-01-24 16:13 | RAD ---
EXAM: Chest, single view. HISTORY: Shortness of breath. COMPARISON: 01/04/2019. FINDINGS: A frontal view of the chest is obtained. There is increased left basilar opacity due to atelectasis or interstitial infiltrate. The superimposed on stable diffuse interstitial prominence. The heart is normal in size. There are implanted breast prostheses. There is no pneumothorax or pleural effusion. IMPRESSION: Suspected increased left lower lobe atelectasis or interstitial infiltrate superimposed on suspected chronic interstitial changes. Electronically signed by: Ritika Armendariz MD (01/24/2019 4:10 PM) [place] [id number]
[2019-01-24] MEDS ORDERED: cefTRIAXone IV Push 1 GM VIAL. IVP ONE (16:15)
[2019-01-24 16:18] LABS: BASO # 0.1 x10^3/uL (0.0-0.2); BASO % 1 % (0-3); EOS # 0.3 x10^3/uL (0.0-0.7); EOS % 4 % (0-3); HEMATOCRIT 49.1 % (36.0-47.0); LYMPH % 14 % (24-48); MEAN CORPUSCULAR HEMOGLOBIN 30 pg (25-35); MEAN CORPUSCULAR HGB CONC 33 g/dL (31-37); MEAN CORPUSCULAR VOLUME 91 fL (79-100); MONO # 0.4 x10^3/uL (0.0-1.1); MONO % 6 % (0-9); NEUT # 5.5 x10^3/uL (1.8-7.7); NEUT % 76 % (31-73); PLATELET COUNT 191 x10^3/uL (140-400); RED BLOOD COUNT 5.41 x10^6/uL (3.50-5.40); RED CELL DISTRIBUTION WIDTH 16.7 % (11.5-14.5); WHITE BLOOD COUNT 7.3 x10^3/uL (4.0-11.0)
[2019-01-24 16:27] LABS: CALCIUM 8.8 mg/dL (8.5-10.1); CREATININE 1.1 mg/dL (0.6-1.0); POTASSIUM 4.2 mmol/L (3.5-5.1)
[2019-01-24 16:33] LABS: ALBUMIN 3.8 g/dL (3.4-5.0); ALBUMIN/GLOBULIN RATIO 1.2 (1.0-1.7); MAGNESIUM 1.9 mg/dL (1.8-2.4); TOTAL BILIRUBIN 1.5 mg/dL (0.2-1.0)
[2019-01-24 16:39] LABS: INFLUENZA A PATIENT NEGATIVE (NEGATIVE); INFLUENZA B PATIENT NEGATIVE (NEGATIVE)
[2019-01-24] MEDS ORDERED: MAG HYDROX/ALUMINUM HYD/SIMETH 30 ML ORAL.SUSP PO ONE (16:45)
--- NOTE | 2019-01-24 16:48 | EKG ---
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
[2019-01-24 16:49] LABS: BASE EXCESS ABG -1 mmol/L (-3-3); HCO3 ABG 22 mmol/L (21-28); PCO2 ABG 32 mmHg (35-46); PO2 ABG 67 mmHg (65-108); SAT O2 ABG 93 % (92-99)
[2019-01-24 16:50] LABS: FIO2 ABG 100
[2019-01-24 18:55] VITALS: BP 128/65
--- NOTE | 2019-01-24 19:20 | HP ---
ADMIT DATE: 01/24/2019 CHIEF COMPLAINT: Shortness of breath. HISTORY OF PRESENT ILLNESS: The patient is a pleasant 73-year-old female who has end-stage COPD. She has 2 home concentrators and is on 15 liters and I think she uses BiPAP now at night as well. She just was discharged within the past couple of weeks with a COPD exacerbation. She normally goes to [facility], but the ambulance brought her here because she was not stable. She is on 100% BiPAP. Her sats are only 89%. I have discussed the case with ER physician. We are going to admit the patient and consult Pulmonary Medicine. PAST MEDICAL HISTORY: End-stage COPD, myocardial infarction, pneumonia, pulmonary hypertension, appendectomy, cholecystectomy, knee replacement, tonsillectomy, cataracts, bilateral mastectomy. ALLERGIES: SULFA, PENICILLIN, ADHESIVE TAPE, AND IODINE. FAMILY HISTORY: Coronary artery disease. SOCIAL HISTORY: She quit smoking, no drinking or drugs. She is , lives at home. MEDICATIONS: Reviewed, please refer to the MRAD. REVIEW OF SYSTEMS: GENERAL: No history of weight change, weakness or fevers. SKIN: No bruising, hair changes or rashes. EYES: No blurred, double or loss of vision. NOSE AND THROAT: No history of nosebleeds, hoarseness or sore throat. HEART: No history of palpitations, chest pain. LUNGS: Denies cough, hemoptysis, wheezing. She complains of shortness of breath. GASTROINTESTINAL: Denies changes in appetite, nausea, vomiting, diarrhea or constipation. GENITOURINARY: No history of frequency, urgency, hesitancy or nocturia. NEUROLOGIC: Denies history of numbness, tingling, tremor or weakness. PSYCHIATRIC: No history of panic, anxiety or depression. ENDOCRINE: No history of heat or cold intolerance, polyuria or polydipsia. EXTREMITIES: Denies muscle weakness, joint pain, pain on walking or stiffness. PHYSICAL EXAMINATION: VITALS: Within normal limits and are stable. GENERAL: No apparent distress. Alert and oriented. She is on BiPAP 100%. HEENT: Head is normocephalic, atraumatic, pupils were equally round and reactive to light and accommodation. NECK: Supple, no JVD, no thyromegaly was noted. LUNGS: Clear to auscultation in all lung moscoso without rhonchi. She has diffuse wheezing. HEART: RRR, S1, S2 present. Peripheral pulses intact, no obvious murmurs were noted. ABDOMEN: Soft, nontender. Positive bowel sounds no organomegaly, normal bowel sounds. EXTREMITIES: Without any cyanosis, clubbing, or edema. Pedal pulses intact, Homans sign is negative. NEUROLOGIC: Normal speech, normal tone. A & O x 3, moves all extremities, no obvious focal deficits. PSYCHIATRIC: Normal affect, normal mood. Stable. SKIN: No ulcerations or rashes, good skin turgor, no jaundice. VASCULAR: Good capillary refill, neurovascular bundle appears to be intact. LABORATORY DATA: White count 7, hemoglobin 16, platelets 191. Electrolytes: Sodium 144, potassium 4.2, chloride 106, bicarbonate 26, BUN 21, creatinine 1.1, glucose 118. Troponin is 0. BNP 9775. Chest x-ray shows atelectasis, infiltrate and probable interstitial changes and by my eye it looks like possible vascular congestion. ASSESSMENT AND PLAN: Respiratory failure, multifactorial including end-stage chronic obstructive pulmonary disease, clinical pneumonia, clinical acute on chronic systolic and diastolic heart failure. The patient has been admitted. We will give her DuoNebs, oxygen per BiPAP, IV steroids, home meds, PT, OT, DVT prophylaxis. Full code. Consult Cardiology. PROGNOSIS: Extremely guarded at best. ISRRAEL DICKEY DO DR: BERTRAM/riccardo JOB#: [id number] / [id number]
[2019-01-24 19:51] VITALS: BP 119/56
[2019-01-24] MEDS: methylPREDNISolone SOD SUCC PF 40 MG/ML VIAL. IV SCH (20:18)
[2019-01-24 23:47] VITALS: BP 124/74
[2019-01-25 03:08] VITALS: BP 113/65
[2019-01-25 07:35] VITALS: BP 126/76
[2019-01-25] MEDS ORDERED: CALCIUM CARBONATE 500 MG TAB.CHEW PO PRN (08:00)
[2019-01-25] MEDS ORDERED: guaiFENesin DM 200MG/20MG 10 ML SYRUP PO PRN (08:00)
[2019-01-25] MEDS ORDERED: TEMAZEPAM 7.5 MG CAPSULE PO PRN (08:00)
[2019-01-25] MEDS ORDERED: SODIUM CHLORIDE 0.65% NASAL SPRAY 45ML BOTTLE. NS PRN (08:30)
--- NOTE | 2019-01-25 08:30 | PDOC2 ---
KORTNEY TORRES DIRECTOR BUSINESS TRAVEL 01/25/19 0830: CARDIAC CONSULT DATE OF CONSULT Date of Consult DATE: 01/25/19 TIME: 08:23 REASON FOR CONSULT Reason for Consult: CHF REFERRING PHYSICIAN Referring Physician: Janelle SOURCE Source: Chart review, Patient HISTORY OF PRESENT ILLNESS HISTORY OF PRESENT ILLNESS This is a pleasant 73 yo female admitted for complains of increasing shortness of breath. This progressed in the last 2 days. She does have cor pulmonal and significant COPD. She has been complaint with her medications including her Bipap but despite this her SOA has increased. Also noted with some leg swelli ng. Her SOA and leg swelling have improved overnight. No fever or chills and no productive cough. 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 Denies any chest pain, palpitations. PAST MEDICAL HISTORY Past Medical History Cardiovascular: CAD, CHF, HTN, Hyperlipidemia, Pulmonary hypertension (primary), Other (ASD/PFO) Pulmonary: COPD, Other (BOAZ) CENTRAL NERVOUS SYSTEM: Periperal neuropathy GI: GERD Heme/Onc: Cancer (breast) Hepatobiliary: Cholelithiasis Psych: Depression Musculoskeletal: Osteoarthritis Rheumatologic: Gout ENT: Allergic Rhinitis Renal/: UTI, Urinary Incontinence Endocrine: Diabetes (2) PAST SURGICAL HISTORY Past Surgical History Cholecystectomy, Mastectomy, Tubal Ligation, Tonsillectomy, Hysterectomy (bilateral), Other (recent CHARO/RHC; PTCA 1991 and PCI/stent in 2000; breast implants) FAMILY HISTORY Family History Coronary Artery Disease (father, sister, son) SOCIAL HISTORY Smoke: Quit ALCOHOL: none Drugs: None Lives: with Family CURRENT MEDICATIONS CURRENT MEDICATIONS Current Medications Medications (Trade) Dose Ordered Sig/Yessy Route PRN Reason Start Time Stop Time Status Last Admin Dose Admin Methylprednisolone Sodium Succinate (SOLU-Medrol 125MG VIAL) 125 mg 1X ONCE IV 01/24/19 15:45 01/24/19 15:46 DC 01/24/19 16:02 Azithromycin 250 ml @ 250 mls/hr 1X ONCE IV 01/24/19 15:45 01/24/19 16:44 DC 01/24/19 16:03 Albuterol/ Ipratropium (Duoneb) 3 ml 1X ONCE NEB 01/24/19 15:45 01/24/19 15:46 DC 01/24/19 15:53 Ceftriaxone Sodium (Rocephin) 1 gm 1X ONCE IVP 01/24/19 16:15 01/24/19 16:16 DC 01/24/19 16:45 Al Hydroxide/Mg Hydroxide (Mylanta Plus Xs) 30 ml 1X ONCE PO 01/24/19 16:45 01/24/19 16:46 DC 01/24/19 16:45 Methylprednisolone Sodium Succinate (SOLU-Medrol 40MG VIAL) 60 mg QID IV 01/24/19 21:00 01/24/19 20:18 ALLERGIES ALLERGIES: Coded Allergies: Sulfa (Sulfonamide Antibiotics) (Verified Allergy, Intermediate, 01/05/19) adhesive tape (Verified Allergy, Intermediate, Rash, 01/05/19) iodine (Verified Allergy, Intermediate, 01/05/19) hives ROS Review of System 14 point ROS evaluated with pertinent positives noted per HPI PHYSICAL EXAM General: Alert, Oriented X3, Cooperative, mild distress HEENT: Atraumatic, Mucous membr. moist/pink Lungs: Other (diminsihed, bipap in place) Heart: Regular rate (SR), Other (distant heart sounds) Abdomen: Soft, No tenderness Extremities: No cyanosis, No edema Skin: No breakdown, No significant lesion Neuro: Normal speech, Sensation intact Psych/Mental Status: Mental status NL, Mood NL MUSCULOSKELETAL: Osteoarthritic changes both hands VITALS/I&O VITALS/I&O: Vital Signs Date Time Temp Pulse Resp B/P (MAP) Pulse Ox O2 Delivery O2 Flow Rate FiO2 01/25/19 08:09 BiPAP/CPAP 01/25/19 07:35 98.2 81 22 126/76 (93) 94 98.2 01/24/19 15:27 15.0 I & O 01/24/19 01/24/19 01/25/19 15:00 23:00 07:00 Intake Total 500 ml 100 ml Balance 500 ml 100 ml LABS Lab: Laboratory Tests Test 01/24/19 15:57 01/24/19 16:00 01/24/19 16:40 01/24/19 20:25 White Blood Count 7.3 x10^3/uL (4.0-11.0) Red Blood Count 5.41 x10^6/uL (3.50-5.40) H Hemoglobin 16.0 g/dL (12.0-15.5) H Hematocrit 49.1 % (36.0-47.0) H Mean Corpuscular Volume 91 fL (79-100) Mean Corpuscular Hemoglobin 30 pg (25-35) Mean Corpuscular Hemoglobin Concent 33 g/dL (31-37) Red Cell Distribution Width 16.7 % (11.5-14.5) H Platelet Count 191 x10^3/uL (140-400) Neutrophils (%) (Auto) 76 % (31-73) H Lymphocytes (%) (Auto) 14 % (24-48) L Monocytes (%) (Auto) 6 % (0-9) Eosinophils (%) (Auto) 4 % (0-3) H Basophils (%) (Auto) 1 % (0-3) Neutrophils # (Auto) 5.5 x10^3/uL (1.8-7.7) Lymphocytes # (Auto) 1.0 x10^3/uL (1.0-4.8) Monocytes # (Auto) 0.4 x10^3/uL (0.0-1.1) Eosinophils # (Auto) 0.3 x10^3/uL (0.0-0.7) Basophils # (Auto) 0.1 x10^3/uL (0.0-0.2) Sodium Level 144 mmol/L (136-145) Potassium Level 4.2 mmol/L (3.5-5.1) Chloride Level 106 mmol/L (98-107) Carbon Dioxide Level 26 mmol/L (21-32) Anion Gap 12 (6-14) Blood Urea Nitrogen 21 mg/dL (7-20) H Creatinine 1.1 mg/dL (0.6-1.0) H Estimated GFR (Cockcroft-Gault) 49.0 BUN/Creatinine Ratio 19 (6-20) Glucose Level 118 mg/dL (70-99) H Lactic Acid Level 1.6 mmol/L (0.4-2.0) Calcium Level 8.8 mg/dL (8.5-10.1) Magnesium Level 1.9 mg/dL (1.8-2.4) Total Bilirubin 1.5 mg/dL (0.2-1.0) H Aspartate Amino Transferase (AST) 21 U/L (15-37) Alanine Aminotransferase (ALT) 19 U/L (14-59) Alkaline Phosphatase 88 U/L (46-116) Creatine Kinase 26 U/L (26-192) Creatine Kinase MB (Mass) 0.7 ng/mL (0.0-3.6) Creatine Kinase MB Relative Index 2.7 % (0-4) Troponin I Quantitative < 0.017 ng/mL (0.000-0.055) CV-Fbv-E-Type Natriuretic Peptide 9775 pg/mL (0-124) H Total Protein 7.0 g/dL (6.4-8.2) Albumin 3.8 g/dL (3.4-5.0) Albumin/Globulin Ratio 1.2 (1.0-1.7) Influenza Type A Antigen Negative (NEGATIVE) Influenza Type B Antigen Negative (NEGATIVE) O2 Saturation 93 % (92-99) Arterial Blood pH 7.46 (7.35-7.45) H Arterial Blood pCO2 at Patient Temp 32 mmHg (35-46) L Arterial Blood pO2 at Patient Temp 67 mmHg (65-108) Arterial Blood HCO3 22 mmol/L (21-28) Arterial Blood Base Excess -1 mmol/L (-3-3) FiO2 100 Glucose (Fingerstick) 164 mg/dL (70-99) H Test 01/25/19 07:28 Glucose (Fingerstick) 150 mg/dL (70-99) H Laboratory Tests 01/24/19 15:57 Laboratory Tests 01/24/19 15:57 ECHOCARDIOGRAM ECHOCARDIOGRAM <Conclusion> The left ventricular systolic function is normal and the ejection fraction is within normal range. The Ejection Fraction is 50-55%. Grossly normal wall motion on limited images. The right ventricle is severely dilated. The right ventricle is moderately hypertrophied. RV Systolic function is mildly to moderately reduced. DATE: 01/05/191539 ASSESSMENT/PLAN ASSESSMENT/PLAN 1. Acute on chronic hypoxic respiratory failure with possible pneumonia with known pulmonary HTN, CHF, and severe COPD 2. Recent ASD percutaneous closure: at [facility] 3. Acute on chronic diastolic CHF/cor pulmonale: using bipap 4. HTN: controlled 5. HLP 6. DM2 7. CAD: PTCA 1991 and stent placement 2000. Last stress test 2 yrs ago. 8. Iodine allergy Recommendations 1. Continue DAPT, toprol, lasix therapy 2. Troponin, BMP, CBC, repeat EKG 3. Continue with secondary prevention 4. Dyspnea mainly from pulmonary issues, if this remains refractory then will need to consider ischemic workup to note any contributing occult ischemia. She follow with [facility] cardiology. 5. Pulmonary consult ZOË GUTIERREZ MD 01/25/19 1550: CARDIAC CONSULT ASSESSMENT/PLAN ASSESSMENT/PLAN Pt. seen and examined. Agree with above SUPPORT TEAM MEMBER note. 73 y.o woman well known to us from her last visit. Hypoxic resp failure secondary to pulmonary disease. Currently appears euvolemic and has no significant acute diastolic HF Continue asa, plavix for recent ASD closure. Ok to stop toprol XL and Atorvastatin. Continue sildenafil. EKG changes likely due to acute pulmonary issues. No need for LHC. Consider transfer to [facility] if no significant improvement. KORTNEY TORRES APRN Jan 25, 2019 08:30 ZOË GUTIERREZ MD Jan 25, 2019 15:50
[2019-01-25] MEDS: IPRATRPIUM/ALBUTEROL 0.5/2.5MG 3 ML NEBU. NEB SCH ×4 (08:31→20:53)
[2019-01-25] MEDS: AMBRISENTAN 10 MG PO SCH (09:00)
[2019-01-25] MEDS ORDERED: NON FORMULARY ITEM (Albuterol Sulfate (Ventolin Hfa Inhaler) 2 PUFF) INH SCH (09:00)
--- NOTE | 2019-01-25 09:02 | PDOC ---
PROGRESS NOTES Chief Complaint Chief Complaint 1. Severe COPD home O2 dependent (15L NC at home with bipap), 2. LLL haziness vs atelectasis 3. PCN allergy but tolerates rocephin fine 4. PUlm HTN on sildenafl 5. FLu neg 6. MIld ZULY VMN - creat 1,1 7. OVerweight bMI 31 History of Present Illness History of Present Illness SOA on transfers LIves at home with ABG pH normal, Co2 32 NO CP Colleague has ordered cards consult too on top of pulmo There were only 2 meds on file Plan: Add cough med and nebs Steroids IV BID I reconciled home meds Add PT.OT Await pulmo rounds We discussed about pCN allergy - we will take it out as her allergy -she tolerated rocephin fine Vitals Vitals Vital Signs Date Time Temp Pulse Resp B/P (MAP) Pulse Ox O2 Delivery O2 Flow Rate FiO2 01/25/19 08:52 BiPAP/CPAP 01/25/19 08:31 15.0 01/25/19 07:35 98.2 81 22 126/76 (93) 94 98.2 Physical Exam General: Alert, Oriented X3, Cooperative, mild distress Heart: Normal S1, Normal S2, No murmurs Lungs: Wheezing, Crackles Abdomen: Normal bowel sounds, Soft, No tenderness Extremities: No clubbing, No cyanosis, No edema Skin: No rashes, No breakdown, No significant lesion Labs LABS Laboratory Tests Test 01/24/19 15:57 01/24/19 16:00 01/24/19 16:40 01/24/19 20:25 White Blood Count 7.3 x10^3/uL (4.0-11.0) Red Blood Count 5.41 x10^6/uL (3.50-5.40) Hemoglobin 16.0 g/dL (12.0-15.5) Hematocrit 49.1 % (36.0-47.0) Mean Corpuscular Volume 91 fL (79-100) Mean Corpuscular Hemoglobin 30 pg (25-35) Mean Corpuscular Hemoglobin Concent 33 g/dL (31-37) Red Cell Distribution Width 16.7 % (11.5-14.5) Platelet Count 191 x10^3/uL (140-400) Neutrophils (%) (Auto) 76 % (31-73) Lymphocytes (%) (Auto) 14 % (24-48) Monocytes (%) (Auto) 6 % (0-9) Eosinophils (%) (Auto) 4 % (0-3) Basophils (%) (Auto) 1 % (0-3) Neutrophils # (Auto) 5.5 x10^3/uL (1.8-7.7) Lymphocytes # (Auto) 1.0 x10^3/uL (1.0-4.8) Monocytes # (Auto) 0.4 x10^3/uL (0.0-1.1) Eosinophils # (Auto) 0.3 x10^3/uL (0.0-0.7) Basophils # (Auto) 0.1 x10^3/uL (0.0-0.2) Sodium Level 144 mmol/L (136-145) Potassium Level 4.2 mmol/L (3.5-5.1) Chloride Level 106 mmol/L (98-107) Carbon Dioxide Level 26 mmol/L (21-32) Anion Gap 12 (6-14) Blood Urea Nitrogen 21 mg/dL (7-20) Creatinine 1.1 mg/dL (0.6-1.0) Estimated GFR (Cockcroft-Gault) 49.0 BUN/Creatinine Ratio 19 (6-20) Glucose Level 118 mg/dL (70-99) Lactic Acid Level 1.6 mmol/L (0.4-2.0) Calcium Level 8.8 mg/dL (8.5-10.1) Magnesium Level 1.9 mg/dL (1.8-2.4) Total Bilirubin 1.5 mg/dL (0.2-1.0) Aspartate Amino Transf (AST/SGOT) 21 U/L (15-37) Alanine Aminotransferase (ALT/SGPT) 19 U/L (14-59) Alkaline Phosphatase 88 U/L (46-116) Creatine Kinase 26 U/L (26-192) Creatine Kinase MB (Mass) 0.7 ng/mL (0.0-3.6) Creatine Kinase MB Relative Index 2.7 % (0-4) Troponin I Quantitative < 0.017 ng/mL (0.000-0.055) TI-Qsa-N-Type Natriuretic Peptide 9775 pg/mL (0-124) Total Protein 7.0 g/dL (6.4-8.2) Albumin 3.8 g/dL (3.4-5.0) Albumin/Globulin Ratio 1.2 (1.0-1.7) Influenza Type A Antigen Negative (NEGATIVE) Influenza Type B Antigen Negative (NEGATIVE) O2 Saturation 93 % (92-99) Arterial Blood pH 7.46 (7.35-7.45) Arterial Blood pCO2 at Patient Temp 32 mmHg (35-46) Arterial Blood pO2 at Patient Temp 67 mmHg (65-108) Arterial Blood HCO3 22 mmol/L (21-28) Arterial Blood Base Excess -1 mmol/L (-3-3) FiO2 100 Glucose (Fingerstick) 164 mg/dL (70-99) Test 01/25/19 07:28 Glucose (Fingerstick) 150 mg/dL (70-99) Review of Systems Review of Systems weak, soa on transfers, dry cough chronic, no CP, no fevers, no abd issues Assessment and Plan Assessmemt and Plan Problems Medical Problems: (1) Acute respiratory failure Status: Acute (2) COPD (chronic obstructive pulmonary disease) Status: Acute (3) Pneumonia Status: Acute Comment Review of Relevant I have reviewed the following items adore (where applicable) has been applied. Labs Laboratory Tests Test 01/24/19 15:57 01/24/19 16:00 01/24/19 16:40 01/24/19 20:25 White Blood Count 7.3 x10^3/uL (4.0-11.0) Red Blood Count 5.41 x10^6/uL (3.50-5.40) Hemoglobin 16.0 g/dL (12.0-15.5) Hematocrit 49.1 % (36.0-47.0) Mean Corpuscular Volume 91 fL (79-100) Mean Corpuscular Hemoglobin 30 pg (25-35) Mean Corpuscular Hemoglobin Concent 33 g/dL (31-37) Red Cell Distribution Width 16.7 % (11.5-14.5) Platelet Count 191 x10^3/uL (140-400) Neutrophils (%) (Auto) 76 % (31-73) Lymphocytes (%) (Auto) 14 % (24-48) Monocytes (%) (Auto) 6 % (0-9) Eosinophils (%) (Auto) 4 % (0-3) Basophils (%) (Auto) 1 % (0-3) Neutrophils # (Auto) 5.5 x10^3/uL (1.8-7.7) Lymphocytes # (Auto) 1.0 x10^3/uL (1.0-4.8) Monocytes # (Auto) 0.4 x10^3/uL (0.0-1.1) Eosinophils # (Auto) 0.3 x10^3/uL (0.0-0.7) Basophils # (Auto) 0.1 x10^3/uL (0.0-0.2) Sodium Level 144 mmol/L (136-145) Potassium Level 4.2 mmol/L (3.5-5.1) Chloride Level 106 mmol/L (98-107) Carbon Dioxide Level 26 mmol/L (21-32) Anion Gap 12 (6-14) Blood Urea Nitrogen 21 mg/dL (7-20) Creatinine 1.1 mg/dL (0.6-1.0) Estimated GFR (Cockcroft-Gault) 49.0 BUN/Creatinine Ratio 19 (6-20) Glucose Level 118 mg/dL (70-99) Lactic Acid Level 1.6 mmol/L (0.4-2.0) Calcium Level 8.8 mg/dL (8.5-10.1) Magnesium Level 1.9 mg/dL (1.8-2.4) Total Bilirubin 1.5 mg/dL (0.2-1.0) Aspartate Amino Transf (AST/SGOT) 21 U/L (15-37) Alanine Aminotransferase (ALT/SGPT) 19 U/L (14-59) Alkaline Phosphatase 88 U/L (46-116) Creatine Kinase 26 U/L (26-192) Creatine Kinase MB (Mass) 0.7 ng/mL (0.0-3.6) Creatine Kinase MB Relative Index 2.7 % (0-4) Troponin I Quantitative < 0.017 ng/mL (0.000-0.055) IR-Zay-A-Type Natriuretic Peptide 9775 pg/mL (0-124) Total Protein 7.0 g/dL (6.4-8.2) Albumin 3.8 g/dL (3.4-5.0) Albumin/Globulin Ratio 1.2 (1.0-1.7) Influenza Type A Antigen Negative (NEGATIVE) Influenza Type B Antigen Negative (NEGATIVE) O2 Saturation 93 % (92-99) Arterial Blood pH 7.46 (7.35-7.45) Arterial Blood pCO2 at Patient Temp 32 mmHg (35-46) Arterial Blood pO2 at Patient Temp 67 mmHg (65-108) Arterial Blood HCO3 22 mmol/L (21-28) Arterial Blood Base Excess -1 mmol/L (-3-3) FiO2 100 Glucose (Fingerstick) 164 mg/dL (70-99) Test 01/25/19 07:28 Glucose (Fingerstick) 150 mg/dL (70-99) Laboratory Tests Test 01/24/19 15:57 01/24/19 16:00 01/24/19 16:40 01/24/19 20:25 White Blood Count 7.3 x10^3/uL (4.0-11.0) Red Blood Count 5.41 x10^6/uL (3.50-5.40) Hemoglobin 16.0 g/dL (12.0-15.5) Hematocrit 49.1 % (36.0-47.0) Mean Corpuscular Volume 91 fL (79-100) Mean Corpuscular Hemoglobin 30 pg (25-35) Mean Corpuscular Hemoglobin Concent 33 g/dL (31-37) Red Cell Distribution Width 16.7 % (11.5-14.5) Platelet Count 191 x10^3/uL (140-400) Neutrophils (%) (Auto) 76 % (31-73) Lymphocytes (%) (Auto) 14 % (24-48) Monocytes (%) (Auto) 6 % (0-9) Eosinophils (%) (Auto) 4 % (0-3) Basophils (%) (Auto) 1 % (0-3) Neutrophils # (Auto) 5.5 x10^3/uL (1.8-7.7) Lymphocytes # (Auto) 1.0 x10^3/uL (1.0-4.8) Monocytes # (Auto) 0.4 x10^3/uL (0.0-1.1) Eosinophils # (Auto) 0.3 x10^3/uL (0.0-0.7) Basophils # (Auto) 0.1 x10^3/uL (0.0-0.2) Sodium Level 144 mmol/L (136-145) Potassium Level 4.2 mmol/L (3.5-5.1) Chloride Level 106 mmol/L (98-107) Carbon Dioxide Level 26 mmol/L (21-32) Anion Gap 12 (6-14) Blood Urea Nitrogen 21 mg/dL (7-20) Creatinine 1.1 mg/dL (0.6-1.0) Estimated GFR (Cockcroft-Gault) 49.0 BUN/Creatinine Ratio 19 (6-20) Glucose Level 118 mg/dL (70-99) Lactic Acid Level 1.6 mmol/L (0.4-2.0) Calcium Level 8.8 mg/dL (8.5-10.1) Magnesium Level 1.9 mg/dL (1.8-2.4) Total Bilirubin 1.5 mg/dL (0.2-1.0) Aspartate Amino Transf (AST/SGOT) 21 U/L (15-37) Alanine Aminotransferase (ALT/SGPT) 19 U/L (14-59) Alkaline Phosphatase 88 U/L (46-116) Creatine Kinase 26 U/L (26-192) Creatine Kinase MB (Mass) 0.7 ng/mL (0.0-3.6) Creatine Kinase MB Relative Index 2.7 % (0-4) Troponin I Quantitative < 0.017 ng/mL (0.000-0.055) BH-Aiv-O-Type Natriuretic Peptide 9775 pg/mL (0-124) Total Protein 7.0 g/dL (6.4-8.2) Albumin 3.8 g/dL (3.4-5.0) Albumin/Globulin Ratio 1.2 (1.0-1.7) Influenza Type A Antigen Negative (NEGATIVE) Influenza Type B Antigen Negative (NEGATIVE) O2 Saturation 93 % (92-99) Arterial Blood pH 7.46 (7.35-7.45) Arterial Blood pCO2 at Patient Temp 32 mmHg (35-46) Arterial Blood pO2 at Patient Temp 67 mmHg (65-108) Arterial Blood HCO3 22 mmol/L (21-28) Arterial Blood Base Excess -1 mmol/L (-3-3) FiO2 100 Glucose (Fingerstick) 164 mg/dL (70-99) Test 01/25/19 07:28 Glucose (Fingerstick) 150 mg/dL (70-99) Medications Current Medications Methylprednisolone Sodium Succinate (SOLU-Medrol 125MG VIAL) 125 mg 1X ONCE IV Last administered on 01/24/19at 16:02; Start 01/24/19 at 15:45; Stop 01/24/19 at 15:46; Status DC Azithromycin 250 ml @ 250 mls/hr 1X ONCE IV Last administered on 01/24/19at 16:03; Start 01/24/19 at 15:45; Stop 01/24/19 at 16:44; Status DC Albuterol/ Ipratropium (Duoneb) 3 ml 1X ONCE NEB Last administered on 01/24/19at 15:53; Start 01/24/19 at 15:45; Stop 01/24/19 at 15:46; Status DC Ceftriaxone Sodium (Rocephin) 1 gm 1X ONCE IVP Last administered on 01/24/19at 16:45; Start 01/24/19 at 16:15; Stop 01/24/19 at 16:16; Status DC Al Hydroxide/Mg Hydroxide (Mylanta Plus Xs) 30 ml 1X ONCE PO Last administered on 01/24/19at 16:45; Start 01/24/19 at 16:45; Stop 01/24/19 at 16:46; Status DC Methylprednisolone Sodium Succinate (SOLU-Medrol 40MG VIAL) 60 mg QID IV Last administered on 01/24/19at 20:18; Start 01/24/19 at 21:00 Ceftriaxone Sodium (Rocephin) 1 gm Q24H IVP ; Start 01/25/19 at 17:00 Albuterol/ Ipratropium (Duoneb) 3 ml RTQID NEB Last administered on 01/25/19at 08:31; Start 01/25/19 at 09:00 Guaifenesin (Robitussin Dm) 10 ml PRN Q6HRS PRN PO COUGH; Start 01/25/19 at 08:00 Temazepam (Restoril) 7.5 mg PRN QHS PRN PO INSOMNIA; Start 01/25/19 at 08:00 Calcium Carbonate/ Glycine (Tums) 500 mg PRN AFTMEALHC PRN PO INDIGESTION; Start 01/25/19 at 08:00 Allopurinol (Zyloprim) 100 mg DAILY PO ; Start 01/25/19 at 09:00 Aspirin (Children'S Aspirin) 81 mg DAILY PO ; Start 01/25/19 at 09:00 Atorvastatin Calcium (Lipitor) 10 mg HS PO ; Start 01/25/19 at 21:00 Azelastine HCl (Astelin) 2 spray BID NS ; Start 01/25/19 at 09:00 Citalopram Hydrobromide (CeleXA) 20 mg DAILY PO ; Start 01/25/19 at 09:00 Clopidogrel Bisulfate (Plavix) 75 mg DAILY PO ; Start 01/25/19 at 09:00 Furosemide (Lasix) 40 mg DAILY PO ; Start 01/25/19 at 09:00 Gabapentin (Neurontin) 600 mg HS PO ; Start 01/25/19 at 21:00 Metformin HCl (Glucophage Xr) 500 mg DAILYWBKFT PO ; Start 01/25/19 at 09:00 Metoprolol Succinate (Toprol Xl) 25 mg DAILY PO ; Start 01/25/19 at 09:00 Oxybutynin Chloride (Ditropan) 5 mg TID PO ; Start 01/25/19 at 09:00 Pantoprazole Sodium (Protonix) 40 mg DAILY PO ; Start 01/25/19 at 09:00 Sildenafil Citrate (Revatio) 20 mg TID PO ; Start 01/25/19 at 09:00 Non-Formulary Medication (Albuterol Sulfate (Ventolin Hfa Inhaler)) 2 puff QID INH ; Start 01/25/19 at 09:00; Stop 01/25/19 at 08:17; Status DC Non-Formulary Medication (Ambrisentan (Letairis)) 10 mg DAILY PO ; Start 01/25/19 at 09:00; Status UNV Lactobacillus Rhamnosus (Culturelle) 1 cap DAILY PO ; Start 01/25/19 at 09:00 Montelukast Sodium (Singulair) 10 mg QHS PO ; Start 01/25/19 at 21:00 Potassium Chloride (Klor-Con) 20 meq DAILYWBKFT PO ; Start 01/25/19 at 09:00 Sodium Chloride (Saline Mist Nasal) 1 mariya PRN Q1HR PRN NS SEASONAL ALLERGIES; Start 01/25/19 at 08:30 Albuterol Sulfate (Ventolin Neb Soln) 2.5 mg RTQID NEB ; Start 01/25/19 at 12:00 Active Scripts Active Reported Sildenafil (Sildenafil Citrate) 20 Mg Tablet 20 Mg PO TID Pantoprazole Sodium 40 Mg Tablet.dr 40 Mg PO DAILY Oxybutynin Chloride 5 Mg Tablet 5 Mg PO TID Neilmed Sinus Rinse Kit Refill (Sodium Chloride/Sodium Bicarb) 1 Each Packet 1 Each NS PRN Q4-6HRS PRN Montelukast Sodium Chew.tablet (Montelukast Sodium) 5 Mg Tab.chew 10 Mg PO HS Metoprolol Succinate ( Xl ) (Metoprolol Succinate) 25 Mg Tab.er.24h 1 Tab PO DAILY Probiotic-10 3 Billion Cell Cp (Lactobac No.41/Bifidobact No.7) 70 Mg Capsule 70 Mg PO DAILY Duoneb 0.5-3(2.5) Mg/3 Ml (Albuterol/Ipratropium) 3 Ml Ampul.neb 3 Ml NEB PRN QI D PRN Furosemide 40 Mg Tablet 1 Tab PO DAILY Flovent 100MCG Diskus (Fluticasone Propionate) 100 Mcg Disk.w.dev 50 Mcg IH DAILY Colcrys (Colchicine) 0.6 Mg Tablet 1 Tab PO PRN Clopidogrel (Clopidogrel Bisulfate) 75 Mg Tablet 1 Tab PO DAILY Citalopram Hbr (Citalopram Hydrobromide) 20 Mg Tablet 1 Tab PO DAILY Azelastine Hcl 137 Mcg/0.137 Ml [place].pump 2 [place] NS BID Atorvastatin Calcium 10 Mg Tablet 1 Tab PO HS Aspirin 81 Mg Tab.chew 1 Tab PO DAILY Letairis (Ambrisentan) 10 Mg Tablet 10 Mg PO DAILY Ventolin Hfa Inhaler (Albuterol Sulfate) 18 Gm Hfa.aer.ad 2 Puff INH QID Allopurinol 100 Mg Tablet 1 Tab PO DAILY Potassium Chloride 20 Meq Tablet.er 20 Meq PO DAILY Metformin Hcl Er (Metformin Hcl) 500 Mg Tab.er.24h 500 Mg PO DAILYWBKFT Gabapentin 300 Mg Capsule 600 Mg PO HS Gabapentin 600 Mg Tablet 300 Mg PO DAILY PRN Vitals/I & O Vital Sign - Last 24 Hours 01/24/19 01/24/19 01/24/19 01/24/19 15:27 15:42 16:00 16:15 Temp 99.7 99.7 Pulse 129 108 104 Resp 30 B/P (MAP) 171/87 (115) 118/71 (87) 122/69 (86) Pulse Ox 46 93 90 93 O2 Delivery Nasal Cannula BiPAP/CPAP O2 Flow Rate 15.0 01/24/19 01/24/19 01/24/19 01/24/19 16:30 16:45 16:50 17:00 Pulse 102 106 101 B/P (MAP) 123/71 (88) 134/78 (96) 113/68 (83) Pulse Ox 91 92 93 91 O2 Delivery BiPAP/CPAP 01/24/19 01/24/19 01/24/19 01/24/19 17:15 18:55 19:51 20:15 Temp 99.2 98.2 99.2 98.2 Pulse 101 92 91 Resp 23 20 B/P (MAP) 112/64 (80) 128/65 (86) 119/56 (77) Pulse Ox 91 92 92 O2 Delivery Room Air BiPAP/CPAP BiPAP/CPAP Bi-pap 01/24/19 01/24/19 01/24/19 01/25/19 20:32 22:24 23:47 00:42 Temp 97.7 97.7 Pulse 84 Resp 20 B/P (MAP) 124/74 (91) Pulse Ox 93 92 O2 Delivery BiPAP/CPAP BiPAP/CPAP BiPAP/CPAP BiPAP/CPAP 01/25/19 01/25/19 01/25/19 01/25/19 02:28 03:08 05:19 07:35 Temp 98.0 98.2 98.0 98.2 Pulse 76 81 Resp 18 22 B/P (MAP) 113/65 (81) 126/76 (93) Pulse Ox 93 94 O2 Delivery BiPAP/CPAP BiPAP/CPAP BiPAP/CPAP BiPAP/CPAP 01/25/19 01/25/19 01/25/19 08:09 08:31 08:52 O2 Delivery BiPAP/CPAP Nasal Cannula BiPAP/CPAP O2 Flow Rate 15.0 Intake and Output 01/24/19 01/24/19 01/25/19 15:00 23:00 07:00 Intake Total 500 ml 100 ml Balance 500 ml 100 ml DEX HUDDLESTON MD Jan 25, 2019 09:02
[2019-01-25] MEDS: LACTOBACILLUS RHAMNOSUS GG 1 CAPSULE. PO SCH (09:25)
[2019-01-25] MEDS: ASPIRIN CHEWABLE 81 MG TABLET. PO SCH (09:25)
[2019-01-25] MEDS: metFORMIN XR 500 MG TAB.ER.24H PO SCH (09:25)
[2019-01-25] MEDS: OXYBUTYNIN CHLORIDE 5 MG TABLET PO SCH ×3 (09:25→21:11)
[2019-01-25] MEDS: POTASSIUM CHLORIDE 20 MEQ TABLET.ER. PO SCH (09:25)
[2019-01-25] MEDS: CLOPIDOGREL BISULFATE 75 MG TABLET PO SCH (09:25)
[2019-01-25] MEDS: CITALOPRAM 20 MG TABLET. PO SCH (09:26)
[2019-01-25] MEDS: FUROSEMIDE 40 MG TABLET. PO SCH (09:26)
[2019-01-25] MEDS: SILDENAFIL CITRATE 20 MG TABLET. PO SCH ×3 (09:26→21:12)
[2019-01-25] MEDS: ALLOPURINOL 100 MG TABLET. PO SCH (09:26)
[2019-01-25] MEDS: PANTOPRAZOLE 40 MG TABLET.DR. PO SCH (09:26)
[2019-01-25] MEDS: METOPROLOL SUCC 24HR ER 25 MG TAB.ER.24H. PO SCH (09:26)
[2019-01-25] MEDS: methylPREDNISolone SOD SUCC PF 40 MG/ML VIAL. IV SCH ×4 (09:27→21:11)
[2019-01-25] MEDS: AZELASTINE NASAL SPRAY 30ML BOTTLE. NS SCH ×2 (09:27→21:11)
[2019-01-25 09:40] LABS: HEMATOCRIT 45.7 % (36.0-47.0); HEMOGLOBIN 15.1 g/dL (12.0-15.5); RED CELL DISTRIBUTION WIDTH 16.4 % (11.5-14.5); WHITE BLOOD COUNT 5.7 x10^3/uL (4.0-11.0)
[2019-01-25 10:04] LABS: CALCIUM 8.9 mg/dL (8.5-10.1); CREATININE 1.1 mg/dL (0.6-1.0); POTASSIUM 4.5 mmol/L (3.5-5.1)
--- NOTE | 2019-01-25 11:28 | EKG ---
[facility] [address] [place] [address] Test Date: 2019-01-25 Test Time: 12:24:21 Pat Name: DUC MCELROY Department: Room: 656 1 Gender: F Department Helper: SADE : [id number] Requested By: KORTNEY TORRES Order Number: [id number] Reading MD: Matthew Cazares MD Measurements Intervals [place] Rate: 82 P: 55 SC: 142 QRS: -64 QRSD: 96 T: -23 QT: 380 QTc: 447 Interpretive Statements SINUS RHYTHM ABNORMAL LEFT AXIS DEVIATION R-S TRANSITION ZONE IN V LEADS DISPLACED TO THE LEFT LEFT ANTERIOR FASCICULAR BLOCK LVH WITH REPOLARIZATION ABNORMALITY ABNORMAL ECG RI6.01 Electronically Signed On 01-25-2019 12:02:11 CDT by Matthew Cazares MD
[2019-01-25 11:54] VITALS: BP 115/67
[2019-01-25] MEDS: ALBUTEROL SULFATE 2.5 MG/3 ML NEBU. NEB SCH ×2 (12:00→16:00)
--- NOTE | 2019-01-25 15:10 | NUR ---
Per Dr. Castellanos request, [facility] made an inpatient transfer request to [facility], phone: [phone], fax: [phone]. [facility] faxed facesheet and insurance cards. Pt acceptance pending. Hospitalist and RN notified.
[2019-01-25 15:24] VITALS: BP 108/51
[2019-01-25] MEDS ORDERED: cefTRIAXone IV Push 1 GM VIAL. IVP SCH (17:00)
[2019-01-25 19:10] VITALS: BP 106/56
[2019-01-25] MEDS ORDERED: MONTELUKAST SODIUM 10 MG TABLET. PO SCH (21:00)
[2019-01-25] MEDS ORDERED: ATORVASTATIN CALCIUM 10 MG TABLET. PO SCH (21:00)
[2019-01-25] MEDS ORDERED: GABAPENTIN 300 MG CAPSULE. PO SCH (21:00)
--- NOTE | 2019-01-25 22:41 | CONS ---
DATE OF CONSULTATION: 01/25/2019 ATTENDING PHYSICIAN: Ho Luis DO CONSULTING PHYSICIAN: Bayron Castellanos MD REASON FOR CONSULTATION: The patient is seen in Pulmonary Consultation at the request of Dr. Luis for acute on chronic respiratory failure. HISTORY OF PRESENT ILLNESS: The patient is a 73-year-old female with a history of severe secondary pulmonary hypertension, underlying COPD, chronic respiratory failure, has been on 15 liters of oxygen at home for the past 15 years. She was recently started on BiPAP at bedtime. She sees Dr. Ian Naranjo for her pulmonary hypertension at [facility]. She has had a previous ASD and PFO closure. She comes in and is more short of breath. No fevers or chills. She had a chest x-ray, which are reviewed. There is slight increase in the left lower lobe infiltrate and atelectasis. I was asked to see her in consultation for further evaluation. The patient is currently on BiPAP. She is awake, alert, following commands. She denies fever or chills. No productive cough. PAST MEDICAL HISTORY: Severe secondary pulmonary hypertension. She has had a previous patent foramen ovale closure. She also had atrial septal defect. There is also a history of COPD, mild previous coronary artery disease, myocardial infarction, pneumonia. PAST SURGICAL HISTORY: Status post appendectomy, cholecystectomy, and knee surgery. ALLERGIES: PENICILLIN AND SULFA. MEDICATION LIST: Reviewed. REVIEW OF SYSTEMS: As indicated above, otherwise other systems could not be adequately reviewed, the patient on BiPAP. PHYSICAL EXAMINATION: GENERAL: The patient was on BiPAP at 15 liters of oxygen supplementation, saturations have been about 90%. HEENT: Eyes, the sclerae was nonicteric. NECK: Jugular venous distention was not elevated. No lymphadenopathy. CHEST: Full expansion. LUNGS: Crackles at the bases with no wheezes. CARDIOVASCULAR: Regular rate and rhythm with S1, S2. No S3. ABDOMEN: Soft, nontender, nondistended. EXTREMITIES: No clubbing, cyanosis or edema. NEUROLOGIC: The patient was awake, alert and following commands. A detailed neurologic exam was not performed. LABORATORY DATA: Reviewed. White count was normal. Hemoglobin and hematocrit noted. Arterial blood gas; pH is 7.46, pCO2 of 32, pO2 of 67 on 100% FiO2. BUN and creatinine were elevated. BNP was elevated. Chest x-ray as indicated above revealing increasing left lower lobe atelectasis, infiltrate along with chronic interstitial changes. IMPRESSION: 1. Acute on chronic hypoxemic respiratory failure. 2. Severe secondary pulmonary hypertension with previous right to left shunt, status post patent foramen ovale closure. 3. History of atrial septal defects. 4. Coronary artery disease. 5. Acute exacerbation on chronic obstructive pulmonary disease. Case was discussed with Dr. Cazares from the Cardiology Service. He is unable to offer any additional studies here at [place]. The patient had a high risk for right heart catheterization. In addition, we do not have a pulmonary hypertension clinic or physician designated to secondary pulmonary hypertension here at [facility]. I discussed the above with the family. I will discuss the case with Dr. Naranjo and possibly transfer the patient to [facility] for advanced care. The patient may require a repeat right heart catheterization to make certain that there is no new right or left shunt. If she does need cardiothoracic surgeon, we do not have a cardiothoracic surgeon on staff at this time. For now, we will continue support with oxygen, BiPAP and steroids. I do appreciate the privilege in sharing her care. BAYRON CASTELLANOS MD DR: LIZA/riccardo JOB#: [id number] / [id number]
[2019-01-25 23:10] VITALS: BP 107/74
[2019-01-26 03:10] VITALS: BP 118/61
[2019-01-26 07:00] VITALS: BP 113/63
[2019-01-26] MEDS: IPRATRPIUM/ALBUTEROL 0.5/2.5MG 3 ML NEBU. NEB SCH ×3 (07:23→15:29)
[2019-01-26] MEDS: AMBRISENTAN 10 MG PO SCH (09:00)
--- NOTE | 2019-01-26 09:35 | PDOC ---
PULMONARY PROGRESS NOTES Subjective PT SLIGHTLY LESS SOA Vitals Vital Signs Date Time Temp Pulse Resp B/P (MAP) Pulse Ox O2 Delivery O2 Flow Rate FiO2 01/26/19 07:24 94 BiPAP/CPAP 01/26/19 07:00 98.2 52 18 113/63 (80) 98.2 01/26/19 03:56 15.0 ROS: No Nausea, No Chest Pain, No Abdominal Pain, No Increase Cough General: Alert Lungs: Crackles Cardiovascular: S1 Abdomen: Soft Neuro Exam: Alert Extremities: No Edema Skin: Warm Labs Laboratory Tests Test 01/24/19 15:57 01/24/19 16:00 01/24/19 16:40 01/24/19 20:25 White Blood Count 7.3 x10^3/uL (4.0-11.0) Red Blood Count 5.41 x10^6/uL (3.50-5.40) Hemoglobin 16.0 g/dL (12.0-15.5) Hematocrit 49.1 % (36.0-47.0) Mean Corpuscular Volume 91 fL (79-100) Mean Corpuscular Hemoglobin 30 pg (25-35) Mean Corpuscular Hemoglobin Concent 33 g/dL (31-37) Red Cell Distribution Width 16.7 % (11.5-14.5) Platelet Count 191 x10^3/uL (140-400) Neutrophils (%) (Auto) 76 % (31-73) Lymphocytes (%) (Auto) 14 % (24-48) Monocytes (%) (Auto) 6 % (0-9) Eosinophils (%) (Auto) 4 % (0-3) Basophils (%) (Auto) 1 % (0-3) Neutrophils # (Auto) 5.5 x10^3/uL (1.8-7.7) Lymphocytes # (Auto) 1.0 x10^3/uL (1.0-4.8) Monocytes # (Auto) 0.4 x10^3/uL (0.0-1.1) Eosinophils # (Auto) 0.3 x10^3/uL (0.0-0.7) Basophils # (Auto) 0.1 x10^3/uL (0.0-0.2) Sodium Level 144 mmol/L (136-145) Potassium Level 4.2 mmol/L (3.5-5.1) Chloride Level 106 mmol/L (98-107) Carbon Dioxide Level 26 mmol/L (21-32) Anion Gap 12 (6-14) Blood Urea Nitrogen 21 mg/dL (7-20) Creatinine 1.1 mg/dL (0.6-1.0) Estimated GFR (Cockcroft-Gault) 49.0 BUN/Creatinine Ratio 19 (6-20) Glucose Level 118 mg/dL (70-99) Lactic Acid Level 1.6 mmol/L (0.4-2.0) Calcium Level 8.8 mg/dL (8.5-10.1) Magnesium Level 1.9 mg/dL (1.8-2.4) Total Bilirubin 1.5 mg/dL (0.2-1.0) Aspartate Amino Transf (AST/SGOT) 21 U/L (15-37) Alanine Aminotransferase (ALT/SGPT) 19 U/L (14-59) Alkaline Phosphatase 88 U/L (46-116) Creatine Kinase 26 U/L (26-192) Creatine Kinase MB (Mass) 0.7 ng/mL (0.0-3.6) Creatine Kinase MB Relative Index 2.7 % (0-4) Troponin I Quantitative < 0.017 ng/mL (0.000-0.055) DE-Bep-Y-Type Natriuretic Peptide 9775 pg/mL (0-124) Total Protein 7.0 g/dL (6.4-8.2) Albumin 3.8 g/dL (3.4-5.0) Albumin/Globulin Ratio 1.2 (1.0-1.7) Influenza Type A Antigen Negative (NEGATIVE) Influenza Type B Antigen Negative (NEGATIVE) O2 Saturation 93 % (92-99) Arterial Blood pH 7.46 (7.35-7.45) Arterial Blood pCO2 at Patient Temp 32 mmHg (35-46) Arterial Blood pO2 at Patient Temp 67 mmHg (65-108) Arterial Blood HCO3 22 mmol/L (21-28) Arterial Blood Base Excess -1 mmol/L (-3-3) FiO2 100 Glucose (Fingerstick) 164 mg/dL (70-99) Test 01/25/19 07:28 01/25/19 09:05 01/25/19 11:18 01/25/19 17:38 Glucose (Fingerstick) 150 mg/dL (70-99) 195 mg/dL (70-99) 170 mg/dL (70-99) White Blood Count 5.7 x10^3/uL (4.0-11.0) Red Blood Count 5.00 x10^6/uL (3.50-5.40) Hemoglobin 15.1 g/dL (12.0-15.5) Hematocrit 45.7 % (36.0-47.0) Mean Corpuscular Volume 91 fL (79-100) Mean Corpuscular Hemoglobin 30 pg (25-35) Mean Corpuscular Hemoglobin Concent 33 g/dL (31-37) Red Cell Distribution Width 16.4 % (11.5-14.5) Platelet Count 168 x10^3/uL (140-400) Sodium Level 146 mmol/L (136-145) Potassium Level 4.5 mmol/L (3.5-5.1) Chloride Level 107 mmol/L (98-107) Carbon Dioxide Level 28 mmol/L (21-32) Anion Gap 11 (6-14) Blood Urea Nitrogen 28 mg/dL (7-20) Creatinine 1.1 mg/dL (0.6-1.0) Estimated GFR (Cockcroft-Gault) 49.0 Glucose Level 223 mg/dL (70-99) Calcium Level 8.9 mg/dL (8.5-10.1) Troponin I Quantitative < 0.017 ng/mL (0.000-0.055) Test 01/25/19 20:04 01/26/19 07:44 Glucose (Fingerstick) 235 mg/dL (70-99) 145 mg/dL (70-99) Laboratory Tests Test 01/25/19 11:18 01/25/19 17:38 01/25/19 20:04 01/26/19 07:44 Glucose (Fingerstick) 195 mg/dL (70-99) 170 mg/dL (70-99) 235 mg/dL (70-99) 145 mg/dL (70-99) Medications Active Scripts Medications Dose Route/Sig Max Daily Dose Days Date Category Sildenafil (Sildenafil Citrate) 20 Mg Tablet 20 Mg PO TID 01/05/19 Reported Pantoprazole Sodium 40 Mg Tablet.dr 40 Mg PO DAILY 01/05/19 Reported Oxybutynin Chloride 5 Mg Tablet 5 Mg PO TID 01/05/19 Reported Neilmed Sinus Rinse Kit Refill (Sodium Chloride/Sodium Bicarb) 1 Each Packet 1 Each NS PRN Q4-6HRS PRN 01/05/19 Reported Montelukast Sodium Chew.tablet (Montelukast Sodium) 5 Mg Tab.chew 10 Mg PO HS 01/05/19 Reported Metoprolol Succinate ( Xl ) (Metoprolol Succinate) 25 Mg Tab.er.24h 1 Tab PO DAILY 01/05/19 Reported Probiotic-10 3 Billion Cell Cp (Lactobac No.41/Bifidobact No.7) 70 Mg Capsule 70 Mg PO DAILY 01/05/19 Reported Duoneb 0.5-3(2.5) Mg/3 Ml (Albuterol/Ipratropium) 3 Ml Ampul.neb 3 Ml NEB PRN QID PRN 01/05/19 Reported Furosemide 40 Mg Tablet 1 Tab PO DAILY 01/05/19 Reported Flovent 100MCG Diskus (Fluticasone Propionate) 100 Mcg Disk.w.dev 50 Mcg IH DAILY 01/05/19 Reported Colcrys (Colchicine) 0.6 Mg Tablet 1 Tab PO PRN 01/05/19 Reported Clopidogrel (Clopidogrel Bisulfate) 75 Mg Tablet 1 Tab PO DAILY 01/05/19 Reported Citalopram Hbr (Citalopram Hydrobromide) 20 Mg Tablet 1 Tab PO DAILY 01/05/19 Reported Azelastine Hcl 137 Mcg/0.137 Ml Eddy.pump 2 Eddy NS BID 01/05/19 Reported Atorvastatin Calcium 10 Mg Tablet 1 Tab PO HS 01/05/19 Reported Aspirin 81 Mg Tab.chew 1 Tab PO DAILY 01/05/19 Reported Letairis (Ambrisentan) 10 Mg Tablet 10 Mg PO DAILY 01/05/19 Reported Ventolin Hfa Inhaler (Albuterol Sulfate) 18 Gm Hfa.aer.ad 2 Puff INH QID 01/05/19 Reported Allopurinol 100 Mg Tablet 1 Tab PO DAILY 01/05/19 Reported Potassium Chloride 20 Meq Tablet.er 20 Meq PO DAILY 01/05/19 Reported Metformin Hcl Er (Metformin Hcl) 500 Mg Tab.er.24h 500 Mg PO DAILYWBKFT 01/05/19 Reported Gabapentin 300 Mg Capsule 600 Mg PO HS 01/05/19 Reported Gabapentin 600 Mg Tablet 300 Mg PO DAILY PRN 01/05/19 Reported Impression . IMPRESSION: 1. Acute on chronic hypoxemic respiratory failure. 2. Severe secondary pulmonary hypertension with previous right to left shunt, status post patent foramen ovale closure. 3. History of atrial septal defects. 4. Coronary artery disease. 5. Acute exacerbation on chronic obstructive pulmonary disease. Plan . BIPAP 02 STEROIDS TRANSFER TO [facility] WHEN BAD AVAILABLE I SPOKE WITH TRANSFERRING PHYSICIAN AND DR ALCARAZ YESTERDAY D/W DR GUTIERREZ [facility] WITH DISPOSITION BAYRON ARNOLD MD Jan 26, 2019 09:35
[2019-01-26] MEDS: CITALOPRAM 20 MG TABLET. PO SCH (09:36)
[2019-01-26] MEDS: OXYBUTYNIN CHLORIDE 5 MG TABLET PO SCH ×2 (09:36→15:37)
[2019-01-26] MEDS: PANTOPRAZOLE 40 MG TABLET.DR. PO SCH (09:36)
[2019-01-26] MEDS: ALLOPURINOL 100 MG TABLET. PO SCH (09:36)
[2019-01-26] MEDS: ASPIRIN CHEWABLE 81 MG TABLET. PO SCH (09:36)
[2019-01-26] MEDS: CLOPIDOGREL BISULFATE 75 MG TABLET PO SCH (09:36)
[2019-01-26] MEDS: metFORMIN XR 500 MG TAB.ER.24H PO SCH (09:36)
[2019-01-26] MEDS: LACTOBACILLUS RHAMNOSUS GG 1 CAPSULE. PO SCH (09:36)
[2019-01-26] MEDS: SILDENAFIL CITRATE 20 MG TABLET. PO SCH ×2 (09:37→15:37)
[2019-01-26] MEDS: FUROSEMIDE 40 MG TABLET. PO SCH (09:37)
[2019-01-26] MEDS: POTASSIUM CHLORIDE 20 MEQ TABLET.ER. PO SCH (09:37)
[2019-01-26] MEDS: METOPROLOL SUCC 24HR ER 25 MG TAB.ER.24H. PO SCH (09:38)
[2019-01-26] MEDS: AZELASTINE NASAL SPRAY 30ML BOTTLE. NS SCH (09:39)
--- NOTE | 2019-01-26 10:07 | PDOC ---
[employer] PROGRESS NOTE Chief Complaint Chief Complaint 1. Severe COPD home O2 dependent (15L NC at home with bipap), 2. LLL haziness vs atelectasis 3. PCN allergy but tolerates rocephin fine 4. PUlm HTN on sildenafl 5. FLu neg 6. MIld ZULY VMN - creat 1,1 7. OVerweight bMI 31 History of Present Illness History of Present Illness Patient is a 73-year-old female, with a history of end-stage COPD, who presents to the emergency department for evaluation of increasing shortness of breath. She was hospitalized here earlier this month for an exacerbation of her COPD, and just finished her steroid taper yesterday. She has a history of recurrent episodes of trouble breathing after coming off steroids after being hospitalized for COPD exacerbations. She is on 15 L via nasal cannula high flow chronically. She denies any pain. She has had a nonproductive cough which is chronic and not increased compared to baseline. She has not had any chest pain. She has not had any significant orthopnea. She states that she has been having some problems with her BiPAP machine at home. There are no alleviating or exacerbating factors to her symptoms otherwise. 01/26: patient seen and examined, patient currently states that she feels improvement in her SOB since admission. She is currently on 100% FiO2 and has a Pa02 of 67. SOA on transfers LIves at home with ABG pH normal, Co2 32 NO CP Colleague has ordered cards consult too on top of pulmo There were only 2 meds on file Vitals/I&O Vitals/I&O: Vital Signs Date Time Temp Pulse Resp B/P (MAP) Pulse Ox O2 Delivery O2 Flow Rate FiO2 01/26/19 09:38 52 113/63 01/26/19 09:35 94 BiPAP/CPAP 01/26/19 07:00 98.2 18 98.2 01/26/19 03:56 15.0 I & O 01/25/19 01/25/19 01/26/19 15:00 23:00 07:00 Intake Total 540 ml 240 ml 950 ml Output Total 200 ml 200 ml 550 ml Balance 340 ml 40 ml 400 ml Physical Exam General: Alert, Oriented X3, Cooperative, mild distress Heart: Regular rate (SR), Normal S1, Normal S2, No murmurs, Other (distant heart sounds) Lungs: Wheezing, Crackles Abdomen: Soft, No tenderness Extremities: No clubbing, No cyanosis, No edema Skin: No rashes, No breakdown, No significant lesion Labs Labs: Laboratory Tests Test 01/25/19 11:18 01/25/19 17:38 01/25/19 20:04 01/26/19 07:44 Glucose (Fingerstick) 195 mg/dL (70-99) 170 mg/dL (70-99) 235 mg/dL (70-99) 145 mg/dL (70-99) Review of Systems Review of Systems: Patient denies N/V and weakness. Assessment and Plan Assessmemt and Plan Problems Medical Problems: (1) Acute respiratory failure Status: Acute (2) COPD (chronic obstructive pulmonary disease) Status: Acute (3) Pneumonia Status: Acute Assessment: Severe COPD, Pneumonia, Respiratory failure Plan: 1. Continue IV Antibiotics 2. Continue to monitor BiPAP 3. DUONEBS 4. DVT prophylaxis 5. Partial code 6. Await further input from pulmonology Comment Review of Relevant I have reviewed the following items adore (where applicable) has been applied. Medications: Current Medications Medications (Trade) Dose Ordered Sig/Yessy Route PRN Reason Start Time Stop Time Status Last Admin Dose Admin Ceftriaxone Sodium (Rocephin) 1 gm Q24H IVP 01/25/19 17:00 01/25/19 16:39 Atorvastatin Calcium (Lipitor) 10 mg HS PO 01/25/19 21:00 01/25/19 21:12 Gabapentin (Neurontin) 600 mg HS PO 01/25/19 21:00 01/25/19 21:11 Montelukast Sodium (Singulair) 10 mg QHS PO 01/25/19 21:00 01/25/19 21:12 ISRRAEL DICKEY K III DO Jan 26, 2019 10:07
--- NOTE | 2019-01-26 10:09 | NUR ---
SS following up with discharge planning. SS contacted [facility] transfer team, , to follow up with transfer request made on 01/25/2019. [facility] reported that pt is accepted for transfer but no beds are currently available at this time. provided SS contact information to transfer team. SS was notified that they would call once bed was found for pt. SS will continue to follow for discharge planning.
[2019-01-26] MEDS: methylPREDNISolone SOD SUCC PF 40 MG/ML VIAL. IV SCH ×2 (10:26→15:43)
[2019-01-26 11:00] VITALS: BP 121/58
[2019-01-26] MEDS: ALBUTEROL SULFATE 2.5 MG/3 ML NEBU. NEB SCH (11:14)
--- NOTE | 2019-01-26 12:19 | PDOC ---
CARDIO Progress Notes Date and Time Date of Service 01/26/19 Time of Evaluation 1210 Subjective Subjective: Other (on BiPAP) Vitals Vitals Vital Signs Date Time Temp Pulse Resp B/P (MAP) Pulse Ox O2 Delivery O2 Flow Rate FiO2 01/26/19 11:00 96 BiPAP/CPAP 01/26/19 11:00 99.0 88 16 121/58 (79) 99.0 01/26/19 03:56 15.0 Weight Weight [ ] Input and Output Intake and Output Intake and Output 01/26/19 07:00 Intake Total 1730 ml Output Total 950 ml Balance 780 ml Intake Oral 1730 ml Output Urine Total 950 ml Laboratory Labs Laboratory Tests Test 01/25/19 17:38 01/25/19 20:04 01/26/19 07:44 Glucose (Fingerstick) 170 mg/dL (70-99) 235 mg/dL (70-99) 145 mg/dL (70-99) Microbiology Micro Microbiology 01/24/19 Blood Culture - Preliminary, Resulted NO GROWTH AFTER 1 DAY Physical Exam HEENT: Neck Supple W Full Motion Chest: Symmetric LUNGS: Other (BiPAP, diminished ) Heart: S1S2, other (distant heart tones ) Abdomen: Soft N/T Extremities: No Edema Neurology: alert Assessment Assessment 1. Acute on chronic hypoxic respiratory failure with severe COPD, pulmonary HTN, and possible PNA 2. ASD s/p percutaneous closure 3. Acute on chronic diastolic CHF/cor pulmonale: continue bipap 4. HTN: controlled 5. HLP 6. DM2 7. CAD s/p previous PCI/stent 8. Iodine allergy Recommendations ASA, Plavix therapy BiPAP support Continue sildenafil Awaiting bed at [facility] for transfer Supportive care ANABELLA GENTILE APRN Jan 26, 2019 12:19
[2019-01-26 15:00] VITALS: BP 100/76
--- NOTE | 2019-01-26 15:15 | NUR ---
SS following up with discharge planning. [facility] contacted floor and provided Bed# [id number] at [facility] on the [place], [address] [place] [address]. Pt will transfer to [facility] at 1615 via [facility] transport, . RNDavid, gave report to RN at [facility]. [facility] form, transfer form, and packet placed on the chart. Pt and pt's family notified.
[2019-01-26 15:37] VITALS: BP 121/58
--- NOTE | 2019-01-26 16:41 | NUR ---
Pt transferred to [facility] on the [place]. Transportation provided by [facility]
== END 2019-01-26 16:40 | disposition short-term general hospital (02) | DRG 871 ==
LOC: ER 15:25 → 6 SOUTH 17:40
PROVIDERS: ADMIT Internal Medicine; ATTEND Internal Medicine
PROC: 5A09357 Assistance with Respiratory Ventilation, Less than 24 Consecutive Hours, Continuous Positive Airway Pressure (ICD-10-PCS; principal; 2019-01-24)
PROC: 5A09457 Assistance with Respiratory Ventilation, 24-96 Consecutive Hours, Continuous Positive Airway Pressure (ICD-10-PCS; 2019-01-25)
DX: A41.9 Sepsis, unspecified organism (principal); J96.21 Acute and chronic respiratory failure with hypoxia; J18.9 Pneumonia, unspecified organism; I50.43 Acute on chronic combined systolic (congestive) and diastolic (congestive) heart failure; N17.9 Acute kidney failure, unspecified; I11.0 Hypertensive heart disease with heart failure; J43.9 Emphysema, unspecified; Z96.659 Presence of unspecified artificial knee joint; K21.9 Gastro-esophageal reflux disease without esophagitis; F32.9 Major depressive disorder, single episode, unspecified; M19.90 Unspecified osteoarthritis, unspecified site; E78.5 Hyperlipidemia, unspecified; I25.10 Atherosclerotic heart disease of native coronary artery without angina pectoris; I27.29 Other secondary pulmonary hypertension; G47.33 Obstructive sleep apnea (adult) (pediatric); M10.9 Gout, unspecified; E11.42 Type 2 diabetes mellitus with diabetic polyneuropathy; E66.3 Overweight; Z98.82 Breast implant status; Z99.81 Dependence on supplemental oxygen; Z95.5 Presence of coronary angioplasty implant and graft; Z90.710 Acquired absence of both cervix and uterus; Z91.041 Radiographic dye allergy status; Z90.49 Acquired absence of other specified parts of digestive tract; Z90.13 Acquired absence of bilateral breasts and nipples; Z88.0 Allergy status to penicillin; Z87.891 Personal history of nicotine dependence; Z87.74 Personal history of (corrected) congenital malformations of heart and circulatory system; Z85.3 Personal history of malignant neoplasm of breast; Z82.49 Family history of ischemic heart disease and other diseases of the circulatory system; Z88.8 Allergy status to other drugs, medicaments and biological substances; I25.2 Old myocardial infarction; Z68.31 Body mass index [BMI] 31.0-31.9, adult; I27.81 Cor pulmonale (chronic)
CPT/HCPCS: 36415; 36600; 71045; 80048; 80053; 82553; 82805; 82962; 83605; 83735; 83880; 84484; 85025; 85027; 87040; 87804; 93005; 94640; 94660; 96365; 96375; J0456; J0696; J2920; J2930; J7620; 99285-25; G0378

== ENCOUNTER → 2019-03-12 | Outpatient (CLI) | payer MEDICARE ==
[~2019-03-12] MED LIST changes: +POTA20TA4 PO; -POTA20TA82 PO
[2019-03-12 21:53] LABS: BILIRUBIN,URINE NEGATIVE (NEG); CLARITY,URINE CLEAR; COLOR,URINE YELLOW; NITRITE,URINE NEGATIVE (NEG); PROTEIN,URINE NEGATIVE (NEG-TRACE); UROBILINOGEN,URINE 0.2 mg/dL (0.2 mg/dL)
[2019-03-12 21:54] LABS: BACTERIA,URINE MANY /HPF (0-FEW); RBC,URINE RARE /HPF (0-2); SQUAMOUS EPITHELIAL CELL,UR FEW /LPF
[2019-03-12 22:00] LABS: CALCIUM 8.5 mg/dL (8.5-10.1); GFR 54.5; POTASSIUM 4.2 mmol/L (3.5-5.1)
[2019-03-14 00:07] LABS: HEMOGLOBIN A1C 6.4 % (4.8-5.6)
== END | disposition home or self-care (01) ==
LOC: SPEC 21:44
PROVIDERS: ATTEND Family Medicine
DX: E11.42 Type 2 diabetes mellitus with diabetic polyneuropathy (principal); N39.0 Urinary tract infection, site not specified; Z79.84 Long term (current) use of oral hypoglycemic drugs
CPT/HCPCS: 36415; 80048; 81001; 83036; 84550; 87086

== ENCOUNTER → 2019-04-11 | Outpatient (CLI) | payer MEDICARE ==
[2019-04-11 16:36] LABS: ALBUMIN 3.8 g/dL (3.4-5.0); ALBUMIN/GLOBULIN RATIO 1.7 (1.0-1.7); CALCIUM 8.8 mg/dL (8.5-10.1); CREATININE 1.2 mg/dL (0.6-1.0); GFR 44.2; TOTAL BILIRUBIN 0.7 mg/dL (0.2-1.0); TOTAL PROTEIN 6.1 g/dL (6.4-8.2)
== END | disposition home or self-care (01) ==
LOC: SPEC 15:53
PROVIDERS: ATTEND Family Medicine
DX: I11.0 Hypertensive heart disease with heart failure (principal); M10.9 Gout, unspecified; I50.9 Heart failure, unspecified
CPT/HCPCS: 36415; 80053; 84550

== ENCOUNTER 2019-04-17 02:17 | Emergency (ER) | payer MEDICARE ==
[~2019-04-17] VITALS: Ht 160 cm; Wt 80.7 kg
[2019-04-17 02:52] LABS: BASO # 0.1 x10^3/uL (0.0-0.2); BASO % 1 % (0-3); EOS % 0 % (0-3); HEMATOCRIT 40.9 % (36.0-47.0); HEMOGLOBIN 13.2 g/dL (12.0-15.5); LYMPH % 16 % (24-48); MEAN CORPUSCULAR HEMOGLOBIN 29 pg (25-35); MEAN CORPUSCULAR HGB CONC 32 g/dL (31-37); MEAN CORPUSCULAR VOLUME 89 fL (79-100); MONO # 0.7 x10^3/uL (0.0-1.1); MONO % 5 % (0-9); NEUT # 9.7 x10^3/uL (1.8-7.7); NEUT % 78 % (31-73); PLATELET COUNT 223 x10^3/uL (140-400); RED BLOOD COUNT 4.59 x10^6/uL (3.50-5.40); WHITE BLOOD COUNT 12.5 x10^3/uL (4.0-11.0)
[2019-04-17 03:00] VITALS: BP 120/61
[2019-04-17 03:00] LABS: CALCIUM 8.5 mg/dL (8.5-10.1); CREATININE 1.6 mg/dL (0.6-1.0); GFR 31.7; POTASSIUM 4.7 mmol/L (3.5-5.1); PROTHROMBIN TIME PATIENT 13.5 SEC (11.7-14.0)
[2019-04-17] MEDS ORDERED: TRANEXAMIC ACID 1,000 MG in IV NORMAL SALINE 50ML 50 ML INJ ONE (03:00)
[2019-04-17 03:14] LABS: % BANDS 4 % (0-9); % LYMPHS 21 % (24-48); % MONOS 7 % (0-10); % SEGS 68 % (35-66); ANISOCYTOSIS SLIGHT; HYPOCHROMIA SLIGHT; NUCLEATED RBC 1; PLT ESTIMATE ADEQUATE (ADEQUATE); POLYCHROMASIA SLIGHT
--- NOTE | 2019-04-17 03:26 | PHYS DOC ---
Past Medical History Past Medical History: COPD, DC, Pneumonia Additional Past Medical Histor: pulmonary htn, EMPHYSEMA Past Surgical History: Appendectomy, Cholecystectomy, Knee Replacement, Tonsillectomy Additional Past Surgical Histo: cataracts removed, bilat mastectomy Alcohol Use: None Drug Use: None Adult General Chief Complaint Chief Complaint: NOSEBLEED HPI HPI Patient is a 74 year old female with history of chronic respiratory failure secondary to COPD who is on 15 L by nasal cannula chronically presents with acute epistaxis. Patient reported nosebleed of right nare currently received take which initially resolved then to rebleed involved both nares. Patient has had continuous nosebleed for the last hour spite holding pressure. Patient's currently on baby aspirin. Patient arrives in triage by private vehicle with active bleeding and in moderate respiratory distress with cyanosis. Patient brought immediately back to a treatment room. Nose clamp days. Patient placed on nasal clamp with nonrebreathing mask. Patient on daily baby aspirin denies anticoagulation therapy.[] Review of Systems Review of Systems Review of symptoms as per history of present illness. All other systems were reviewed and found to be within normal limits, except as documented in this note. Current Medications Current Medications Current Medications Medications (Trade) Dose Ordered Sig/Yessy Start Time Stop Time Status Last Admin Dose Admin Tranexamic Acid 1000 mg/Sodium Chloride 60 ml @ 60 mls/hr 1X ONCE 04/17/19 03:00 04/17/19 03:59 04/17/19 02:59 60 MLS/HR Allergies Allergies Allergies Coded Allergies Type Severity Reaction Last Updated Verified Sulfa (Sulfonamide Antibiotics) Allergy Intermediate 01/05/19 Yes adhesive tape Allergy Intermediate Rash 01/05/19 Yes iodine Allergy Intermediate 01/05/19 Yes Physical Exam Physical Exam Constitutional: Anxious, Cyanotic with moderate respiratory distress, active nose bleed. [] HENT: Normocephalic, atraumatic, bilateral external ears normal, oropharynx moist, no oral exudates, nose, active bleeding nares. [] Eyes: PERRLA, EOMI. [] Neck: Normal range of motion. [] Cardiovascular:Heart rate regular rhythm, no murmur [] Lungs & Thorax: Respirations labored, With significantly minutes bilaterally[] Extremities: No deformities. [] Neurologic: Alert and oriented X 3, normal motor function, normal sensory function, no focal deficits noted. [] Current Patient Data Vital Signs Vital Signs Date Time Temp Pulse Resp B/P (MAP) Pulse Ox O2 Delivery O2 Flow Rate FiO2 04/17/19 02:20 97.4 92 25 125/55 (78) 80 Nasal Cannula 15.0 97.4 Lab Values Laboratory Tests Test 04/17/19 02:45 White Blood Count 12.5 x10^3/uL (4.0-11.0) H Red Blood Count 4.59 x10^6/uL (3.50-5.40) Hemoglobin 13.2 g/dL (12.0-15.5) Hematocrit 40.9 % (36.0-47.0) Mean Corpuscular Volume 89 fL (79-100) Mean Corpuscular Hemoglobin 29 pg (25-35) Mean Corpuscular Hemoglobin Concent 32 g/dL (31-37) Red Cell Distribution Width 17.0 % (11.5-14.5) H Platelet Count 223 x10^3/uL (140-400) Neutrophils (%) (Auto) 78 % (31-73) H Lymphocytes (%) (Auto) 16 % (24-48) L Monocytes (%) (Auto) 5 % (0-9) Eosinophils (%) (Auto) 0 % (0-3) Basophils (%) (Auto) 1 % (0-3) Neutrophils # (Auto) 9.7 x10^3/uL (1.8-7.7) H Lymphocytes # (Auto) 2.0 x10^3/uL (1.0-4.8) Monocytes # (Auto) 0.7 x10^3/uL (0.0-1.1) Eosinophils # (Auto) 0.0 x10^3/uL (0.0-0.7) Basophils # (Auto) 0.1 x10^3/uL (0.0-0.2) Segmented Neutrophils % 68 % (35-66) H Band Neutrophils % 4 % (0-9) Lymphocytes % 21 % (24-48) L Monocytes % 7 % (0-10) Nucleated Red Blood Cells 1 Platelet Estimate Adequate (ADEQUATE) Polychromasia Slight Hypochromasia Slight Anisocytosis Slight Prothrombin Time 13.5 SEC (11.7-14.0) Prothrombin Time INR 1.1 (0.8-1.1) Activated Partial Thromboplast Time 20 SEC (24-38) L Sodium Level 140 mmol/L (136-145) Potassium Level 4.7 mmol/L (3.5-5.1) Chloride Level 101 mmol/L (98-107) Carbon Dioxide Level 28 mmol/L (21-32) Anion Gap 11 (6-14) Blood Urea Nitrogen 45 mg/dL (7-20) H Creatinine 1.6 mg/dL (0.6-1.0) H Estimated GFR (Cockcroft-Gault) 31.7 Glucose Level 208 mg/dL (70-99) H Calcium Level 8.5 mg/dL (8.5-10.1) Laboratory Tests 04/17/19 02:45 Laboratory Tests 04/17/19 02:45 EKG EKG [] Radiology/Procedures Radiology/Procedures [] Course & Med Decision Making Course & Med Decision Making Pertinent Labs and Imaging studies reviewed. (See chart for details) [Respiratory distress wi/hypoxia improved with non-rebreather. Min bleeding around nasal clamp. Unable to pack nose due to respiratory compromise. No ENT available at this facility. Patient given IV TXA will be transferred to [facility] emergency department due to potential need ENT management. ] Dragon Disclaimer Dragon Disclaimer This electronic medical record was generated, in whole or in part, using a voice recognition dictation system. Departure Departure Impression: Primary Impression: Acute respiratory failure Additional Impressions: Hypoxemia Epistaxis Disposition: 02 TRANSFER [facility] Condition: IMPROVED Referrals: CASSANDRA SOTOMAYOR (PCP) Problem Qualifiers CINDY LAU DO Apr 17, 2019 03:26
== END 2019-04-17 03:32 | disposition short-term general hospital (02) ==
LOC: ER 02:17
DX: J96.01 Acute respiratory failure with hypoxia (principal); R04.0 Epistaxis; J44.9 Chronic obstructive pulmonary disease, unspecified; I25.2 Old myocardial infarction; Z88.2 Allergy status to sulfonamides; I27.20 Pulmonary hypertension, unspecified; Z88.8 Allergy status to other drugs, medicaments and biological substances
CPT/HCPCS: 36415; 80048; 85007; 85025; 85610; 85730; 96365; 99285-25

== ENCOUNTER → 2019-04-26 | Outpatient (CLI) | payer MEDICARE ==
[2019-04-17 03:00] VITALS: BP 120/61
== END | disposition home or self-care (01) ==
LOC: SPEC 15:28
PROVIDERS: ATTEND Internal Medicine Critical Care Medicine
DX: J96.21 Acute and chronic respiratory failure with hypoxia (principal); J20.9 Acute bronchitis, unspecified
CPT/HCPCS: 87070; 87205